=== PATIENT | female | born 1975 | race Caucasian/White ===

== ENCOUNTER 2019-03-03 19:49 | Emergency (ER) | payer OTHER ==
[2019-03-03] MEDS ORDERED: KETOROLAC 30 MG/ML INJ ONE (20:30)
[2019-03-03] MEDS ORDERED: NA CHLORIDE 0.9% 1,000 ML ONE (20:31)
[2019-03-03 20:47] LABS: Absolute Lymphocytes (CBC) 2.3 K/uL (0.7-4.9); Absolute Monocytes 0.7 K/uL (0.1-1.3); Absolute Neutrophil 5.1 K/uL (1.8-8.0); Basophils % 0.9 % (0-1.3); Eosinophils % 4.9 % (0-4.4); Hematocrit 35.1 % (36.0-45.0); Lymphocytes % 26.9 % (15.3-44.8); MPV 7.6 fL (7.6-11.3); Monocytes % 7.7 % (3.3-12.3); RBC Red Blood Cell Count 3.78 M/uL (3.86-4.86)
[2019-03-03 20:48] LABS: Protime INR 0.94
[2019-03-03 21:05] LABS: ALT/SGPT 19 U/L (12-78); AST/SGOT 14 U/L (15-37); Albumin 3.9 g/dL (3.4-5.0); Alkaline Phosphatase 102 U/L (45-117); BUN Blood Urea Nitrogen 17 mg/dL (7-18); Bicarbonate 24 mmol/L (21-32); Bilirubin Direct < 0.1 mg/dL (0-0.2); Bilirubin Total 0.2 mg/dL (0.2-1.0); Glucose Level 110 mg/dL (74-106); Magnesium 2.3 mg/dL (1.8-2.4); Potassium 3.8 mmol/L (3.5-5.1); Protein, Total 7.4 g/dL (6.4-8.2); Sodium Level 143 mmol/L (136-145); Troponin (Emerg Dept Use Only) < 0.02 ng/mL (0.0-0.045)
[2019-03-03 21:21] LABS: Urine Bacteria <20 /HPF (<20); Urine Culture Reflex Order NOT NEEDED; Urine RBC NONE SEEN /HPF (NONE SEEN)
[2019-03-03 21:22] LABS: Urine Specific Gravity 1.015 (1.005-1.030)
[2019-03-03 21:23] LABS: Urine Blood NEGATIVE (NEG); Urine Glucose NEGATIVE (NEG); Urine Protein NEGATIVE (NEG); Urine Specific Gravity 1.015 (1.005-1.030); Urine pH 7.5 (5.0-7.0)
[2019-03-03 21:45] LABS: Barbiturates NEGATIVE (NEGATIVE); Benzodiazepines NEGATIVE (NEGATIVE); Cocaine NEGATIVE (NEGATIVE); METHAMPHETAM NEGATIVE (NEGATIVE); Methadone NEGATIVE (NEGATIVE); Opiates POSITIVE (NEGATIVE); Phencyclidine NEGATIVE (NEGATIVE); THC Cannibis NEGATIVE (NEGATIVE)
--- NOTE | 2019-03-03 22:31 | EDPHYS ---
Physician Documentation [facility] Name: Brandee Marroquin Age: 43 yrs Sex: Female : 1975 Arrival Date: 03/03/2019 Time: 19:50 Bed 6 Private MD: ANTONI Physician Alejandro Mills HPI: 03/03 20:14 This 43 yrs old Female presents to ER via Ambulatory with complaints of cp General Weakness, Pain All Over. 20:15 "pain all over" and generalized weakness. Onset: The symptoms/episode began/occurred cp today. Severity of symptoms: in the emergency department the symptoms are unchanged despite home interventions. 20:15 The patient has been recently seen by a physician: the patient's primary care provider, cp 3 week(s) ago, diagnosed with ovarian cyst and uterine tumor. 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 - Social history:: Smoking status: Patient/guardian denies using tobacco. - Ebola Screening: : No symptoms or risks identified at this time. ROS: 20:15 Constitutional: Negative for body aches, chills, fever, poor PO intake. cp 20:15 Eyes: Negative for injury, pain, redness, and discharge. cp 20:15 ENT: Negative for drainage from ear(s), ear pain, sore throat, difficulty swallowing, difficulty handling secretions. 20:15 Cardiovascular: Negative for chest pain, palpitations. 20:15 Respiratory: Negative for cough, orthopnea, shortness of breath, wheezing. 20:15 Abdomen/GI: Positive for abdominal pain, of the right lower quadrant and left lower quadrant, Negative for nausea, vomiting, and diarrhea, constipation, anorexia, black/tarry stool, rectal bleeding. 20:15 Back: Negative for pain at rest, pain with movement. 20:15 : Negative for urinary symptoms, vaginal bleeding, vaginal discharge. 20:15 Skin: Negative for cellulitis, rash. 20:15 Neuro: Positive for general weakness, Negative for altered mental status, dizziness, headache, numbness, tingling. 20:15 All other systems are negative. Exam: 20:35 Constitutional: The patient appears in no acute distress, alert, awake, cp non-diaphoretic, non-toxic, well developed, well nourished. 20:35 Head/Face: Normocephalic, atraumatic. cp 20:35 Eyes: Periorbital structures: appear normal, Conjunctiva: normal, no exudate, no injection, Sclera: no appreciated abnormality, Lids and lashes: appear normal, bilaterally. 20:35 ENT: External ear(s): are unremarkable, Ear canal(s): are normal, clear, TM's: bulging, is not appreciated, bilaterally, dullness, bilaterally, erythema, is not appreciated, bilaterally, Nose: is normal, Mouth: Lips: moist, Oral mucosa: pink and intact, moist, Posterior pharynx: Airway: no evidence of obstruction, patent, Tonsils: are normal in appearance, swelling, is not appreciated, erythema, is not appreciated, exudate, is not appreciated. 20:35 Neck: ROM/movement: is normal, is supple, no range of motions limitations, no meningismus, no nuchal rigidity, Lymph nodes: no appreciated lymphadenopathy. 20:35 Chest/axilla: Inspection: normal, Palpation: is normal, no crepitus, no tenderness. 20:35 Cardiovascular: Rate: normal, Rhythm: regular, Heart sounds: murmur, not appreciated, Edema: is not appreciated, JVD: is not appreciated. 20:35 Respiratory: the patient does not display signs of respiratory distress, Respirations: normal, no use of accessory muscles, no retractions, no splinting, no tachypnea, labored breathing, is not present, Breath sounds: are clear throughout, no decreased breath sounds, no stridor, no wheezing. 20:35 Abdomen/GI: Inspection: abdomen appears normal, Bowel sounds: active, all quadrants, Palpation: soft, in all quadrants, mild abdominal tenderness, in the right lower quadrant and left lower quadrant, rebound tenderness, is not appreciated, involuntary guarding, is not appreciated. 20:35 Back: pain, that is moderate, ROM is painful, with all movement. 20:35 Skin: cellulitis, is not appreciated, no rash present. 20:35 Neuro: Orientation: to person, place \\T\\ time. Mentation: is normal, Cerebellar function: is grossly normal, Motor: moves all fours, strength is normal, Sensation: is normal. 21:03 ECG was reviewed by the Attending Physician. cp Vital Signs: 19:57 BP 113 / 86; Pulse 92; Resp 18; Temp 98.2; Pulse Ox 98% on R/A; Weight 65.77 kg; Height la1 5 ft. 2 in. (157.48 cm); Pain 6/10; 21:55 BP 107 / 74; Pulse 93; Resp 18; Pulse Ox 100% on R/A; mg2 19:57 Body Mass Index 26.52 (65.77 kg, 157.48 cm) la1 MDM: 19:59 Patient medically screened. cp 20:30 Differential Diagnosis sepsis, flu, UTI, chronic pain, pyelonephritis, . cp 22:30 Data reviewed: vital signs, nurses notes, lab test result(s), EKG, radiologic studies, cp ultrasound. 22:30 Test interpretation: by ED physician or midlevel provider: ECG. cp 22:30 Counseling: I had a detailed discussion with the patient and/or guardian regarding: the cp historical points, exam findings, and any diagnostic results supporting the discharge/admit diagnosis, lab results, radiology results, the need for outpatient follow up, a family practitioner, an OB/Gyne specialist, to return to the emergency department if symptoms worsen or persist or if there are any questions or concerns that arise at home. 22:30 Response to treatment: the patient's symptoms have markedly improved after treatment, cp and as a result, I will discharge patient. ED course: VSS. Symptoms improved with treatment. Will discharge to home for continued monitoring. 03/03 20:13 Order name: Urine Microscopic Only; Complete Time: 22:00 cp 03/03 20:13 Order name: Basic Metabolic Panel; Complete Time: 21:07 cp 03/03 21:07 Interpretation: Normal except: CL 110; GLUC 110; GFR 60. cp 03/03 20:13 Order name: CBC with Diff; Complete Time: 21:07 cp 03/03 22:01 Interpretation: Normal except: RBC 3.78; HCT 35.1; EOSINOPHIL % 4.9. cp 03/03 20:13 Order name: LFT's; Complete Time: 21:07 cp 03/03 20:13 Order name: Magnesium; Complete Time: 21:07 cp 03/03 20:13 Order name: PT-INR; Complete Time: 21:07 cp 03/03 20:13 Order name: Troponin (emerg Dept Use Only); Complete Time: 21:07 cp 03/03 20:13 Order name: Influenza Screen (a \\T\\ B); Complete Time: 22:00 cp 03/03 20:13 Order name: UDS; Complete Time: 22:00 cp 03/03 22:00 Interpretation: Normal except: OPI POSITIVE. cp 03/03 21:07 Order name: Urine Dipstick--Ancillary (enter results); Complete Time: 22:00 ar5 03/03 21:08 Order name: Urine --Ancillary (enter results); Complete Time: 22:00 ar5 03/03 21:09 Order name: US Pelvis Complete cp 03/03 20:13 Order name: Urine Dipstick-Ancillary (obtain specimen); Complete Time: 20:57 cp 03/03 20:13 Order name: Urine Test (obtain specimen); Complete Time: 20:57 cp 03/03 20:13 Order name: EKG; Complete Time: 20:14 cp 03/03 20:13 Order name: Cardiac monitoring; Complete Time: 20:42 cp 03/03 20:13 Order name: EKG - Nurse/Tech; Complete Time: 20:56 cp 03/03 20:13 Order name: IV Saline Lock; Complete Time: 20:43 cp 03/03 20:13 Order name: Labs collected and sent; Complete Time: 20:43 cp 03/03 20:13 Order name: O2 Per Protocol; Complete Time: 20:43 cp 03/03 20:13 Order name: O2 Sat Monitoring; Complete Time: 20:43 cp EC:03 Rate is 85 beats/min. Rhythm is regular. OR interval is normal. QRS interval is normal. cp QT interval is normal. Interpreted by me. Reviewed by me. Administered Medications: 20:42 Drug: NS 0.9% 1000 ml Route: IV; Rate: 1 bolus; Site: right antecubital; mg2 22:52 Follow up: Response: No adverse reaction; IV Status: Completed infusion mg2 20:42 Drug: TORadol - Ketorolac 15 mg Route: IVP; Site: right antecubital; mg2 22:51 Follow up: Response: No adverse reaction; Marked relief of symptoms mg2 Disposition: 03/03/19 22:30 Discharged to Home. Impression: Weakness - generalized, Acute pain, not elsewhere classified - generalized, Other ovarian cysts. - Condition is Stable. - Discharge Instructions: Ovarian Cyst, Pain Without a Known Cause, Weakness. - Prescriptions for Cyclobenzaprine 10 mg Oral Tablet - take 1 tablet by ORAL route every 8 hours As needed no driving while taking medication; 15 tablet. Diclofenac Sodium 75 mg Oral Tablet, Delayed Release (E.C.) - take 1 tablet by ORAL route 2 times per day; 20 tablet. - Medication Reconciliation Form, Thank You Letter, Antibiotic Education, Prescription Opioid Use, Work release form, Family Work Release form. - Follow up: Private Physician; When: 2 - 3 days; Reason: Recheck today's complaints. - Problem is new. - Symptoms have improved. Addendum: 03/05/2019 11:15 Co-signature as Attending Physician, Alejandro Mills MD I agree with the assessment and c mae plan of care. Signatures: Dispatcher [employer] EDMA Alejandro Mills MD MD cha Attema, Lee, RN RN la1 Alejandro Dominguez PA PA Miko Sofia RN RN mg2 Corrections: (The following items were deleted from the chart) 03/03 22:01 21:08 Normal except: RBC 3.78; HCT 35.1. cp cp 22:53 22:30 03/03/2019 22:30 Discharged to Home. Impression: Weakness - generalized; Acute mg2 pain, not elsewhere classified - generalized; Other ovarian cysts. Condition is Stable. Forms are Work release form, Family Work Release, Medication Reconciliation Form, Thank You Letter, Antibiotic Education, Prescription Opioid Use. Follow up: Private Physician; When: 2 - 3 days; Reason: Recheck today's complaints. Problem is new. Symptoms have improved. cp
--- NOTE | 2019-03-03 22:31 | ER ---
Nurse's Notes [facility] Name: Brandee Marroquin Age: 43 yrs Sex: Female : 1975 Arrival Date: 03/03/2019 Time: 19:50 Bed 6 Private MD: Diagnosis: Weakness-generalized;Acute pain, not elsewhere classified-generalized;Other ovarian cysts Presentation: 03/03 19:55 Presenting complaint: Patient states: About three weeks ago seen at PCP and then three la1 days later we had a CT at [facility] and they told her she had a tumor. Today I started having pain all over . No ill contacts. Pt tolerating PO. Transition of care: patient was not received from another setting of care. Onset of symptoms was March 03, 2019. Risk Assessment: Do you want to hurt yourself or someone else? Patient reports no desire to harm self or others. Initial Sepsis Screen: Does the patient meet any 2 criteria? No. Patient's initial sepsis screen is negative. Does the patient have a suspected source of infection? No. Patient's initial sepsis screen is negative. Care prior to arrival: None. 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 - Social history:: Smoking status: Patient/guardian denies using tobacco. - Ebola Screening: : No symptoms or risks identified at this time. Screenin:24 Abuse screen: Denies threats or abuse. Denies injuries from another. Nutritional mg2 screening: No deficits noted. Tuberculosis screening: No symptoms or risk factors identified. Fall Risk IV access (20 points). Assessment: 20:25 General: Appears in no apparent distress. comfortable, Behavior is calm, cooperative. mg2 Pain: Complains of pain in whole body Pain does not radiate. Pain currently is 5 out of 10 on a pain scale. Quality of pain is described as aching, Pain began gradually. Neuro: Level of Consciousness is awake, alert, obeys commands, Oriented to person, place, time, situation. Neuro: Reports weakness in wjole body. Cardiovascular: Capillary refill < 3 seconds Patient's skin is warm and dry. Respiratory: Airway is patent Respiratory effort is even, unlabored, Respiratory pattern is regular, symmetrical. GI: No signs and/or symptoms were reported involving the gastrointestinal system. : No signs and/or symptoms were reported regarding the genitourinary system. EENT: No signs and/or symptoms were reported regarding the EENT system. Derm: Skin is intact, is healthy with good turgor, Skin is pink, warm \T\ dry. normal. Musculoskeletal: Circulation, motion, and sensation intact. Capillary refill < 3 seconds. Vital Signs: 19:57 BP 113 / 86; Pulse 92; Resp 18; Temp 98.2; Pulse Ox 98% on R/A; Weight 65.77 kg; Height la1 5 ft. 2 in. (157.48 cm); Pain 6/10; 21:55 BP 107 / 74; Pulse 93; Resp 18; Pulse Ox 100% on R/A; mg2 19:57 Body Mass Index 26.52 (65.77 kg, 157.48 cm) la1 ED Course: 19:50 Patient arrived in ED. am2 19:57 Triage completed. la1 19:57 Arm band placed on left wrist. la1 19:59 Alejandro Dominguez PA is PHCP. cp 19:59 Alejandro Mills MD is Attending Physician. cp 20:06 Miko Rausch, MARY is Primary Nurse. mg2 20:27 Patient has correct armband on for positive identification. Pulse ox on. NIBP on. Door mg2 closed. Warm blanket given. 20:43 No provider procedures requiring assistance completed. Inserted saline lock: 20 gauge mg2 in right antecubital area, using aseptic technique. Blood collected. ANTONI Galvez Tech. 22:07 Ultrasound completed. Patient tolerated well. sg3 22:08 US Pelvis Complete In Process Unspecified. EDMS 22:52 IV discontinued, intact, bleeding controlled, No redness/swelling at site. Pressure mg2 dressing applied. Administered Medications: 20:42 Drug: NS 0.9% 1000 ml Route: IV; Rate: 1 bolus; Site: right antecubital; mg2 22:52 Follow up: Response: No adverse reaction; IV Status: Completed infusion mg2 20:42 Drug: TORadol - Ketorolac 15 mg Route: IVP; Site: right antecubital; mg2 22:51 Follow up: Response: No adverse reaction; Marked relief of symptoms mg2 Outcome: 22:30 Discharge ordered by . diana 22:52 Discharged to home ambulatory, with family. mg2 22:52 Condition: stable 22:52 Discharge instructions given to patient, family, Instructed on discharge instructions, follow up and referral plans. medication usage, Demonstrated understanding of instructions, follow-up care, medications, Prescriptions given X 2. 22:53 Patient left the ED. mg2 Signatures: Dispatcher [employer] EDMS Varinder Zelaya RN RN la1 Alejandro Dominguez PA PA cp Moreno, Amanda am2 Ashley Minor sg3 Miko Rausch RN RN mg2 Corrections: (The following items were deleted from the chart) 21:56 21:55 Pulse 93bpm; Resp 18bpm; Pulse Ox 100% RA; mg2 mg2
--- NOTE | 2019-03-03 23:06 | RAD REPORT ---
EXAM DESCRIPTION: US - Pelvis Complete - 03/03/2019 10:07 pm CLINICAL HISTORY: lower abdomen pain Pelvic pain. COMPARISON: No comparisons FINDINGS: The uterus is mildly heterogenous but otherwise normal in size and shape. The uterus measu res 8.6 x 5.2 x 4.3 cm. The endometrial stripe measures 6 mm, normal. Both ovaries are normal in size, shape and echotexture. The right ovary measures 2.0 x 1.9 x 1.3 cm. The left ovary measures 2.2 x 2.0 x 1.9 cm. No ovarian or parovarian lesions. No adnexal masses. Normal Doppler blood flow was demonstrated to both ovaries. No significant pelvic ascites. IMPRESSION: No acute finding demonstrated.
--- NOTE | 2019-03-04 07:06 | EKG ---
Test Date: 2019-03-03 Test Time: 20:51:23 Talent Development Analyst: SVEN MEASUREMENT RESULTS: Intervals: Rate: 85 [place]: 158 QRSD: 84 QT: 380 QTc: 452 [place]: P: 48 [place]: 158 QRS: 46 T: 49 INTERPRETIVE STATEMENTS: Normal sinus rhythm Normal ECG No previous ECG available for comparison Electronically Signed On 03-04-19 07:05:15 CDT by Baltazar Navas
== END 2019-03-03 22:53 | disposition home or self-care (01) ==
LOC: ER 19:49
DX: G89.11 Acute pain due to trauma (principal); N83.299 Other ovarian cyst, unspecified side; F41.9 Anxiety disorder, unspecified; F32.9 Major depressive disorder, single episode, unspecified
CPT/HCPCS: 36415; 76856; 80048; 80076; 80307; 81003; 81015; 81025; 83735; 84484; 85025; 85610; 87804; 93005; J7030

== ENCOUNTER 2024-07-07 14:58 | Emergency (ER) | payer OTHER, SELFPAY ==
--- OUTSIDE RECORDS SUMMARY | 2024-07-07 15:03 | XMS REPORT | Continuity of Care Document ---
Demographics Address [address] [place] [address] Mobile Phone Email Address NONE Preferred Language Romansh Marital Status Unknown Orthodoxy Affiliation Unknown Race Unknown Additional Race(s) White Ethnic Group or Author Name Unknown Address [address] [place] [address] [facility] thconnect Address [address] [facility] 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 Name Role Phone Conor Millan NP Primary Care Physician [phone] SONYA BLACKWELL Attending Clinician Unavailable LYNN NAVA Attending Clinician Unavailable LYNN NAVA Attending Clinician Unavailable Lynn Nava MD Attending Clinician [phone] RATNA MCKEON Attending Clinician Unavailable CONOR MILLAN Attending Clinician Unavailab CONOR Patrick Attending Clinician Unavailab HUSAM Granger Attending Clinician Unavailable Husam Kirk MD Attending Clinician [phone] ABDON BUITRAGO Attending Clinician UnavailAbdon Fletcher Attending Clinician [phone] Rosalva KAYE Attending Clinician Unavailable Mikki PAC, Rosalva Roxane Attending Clinician + [phone] AUDRA WELLS Attending Clinician Unavailgiselle Wells MD, Audra Reeder Attending Clinician + [phone] HENRIQUE BIANCHI Attending Clinician Unavailable Tash SKIP HOIST ENGINEER, Henrique T Attending Clinician +[phone] GRAEME FLORES Attending Clinician Unavaila avila Flores MD, Graeme Flores Attending Clinician [phone] Tarah Cui MD Attending Clinician + [phone] ANTHONY MARTELL Attending Clinician Unavailable Benoit PAC, Maryjo S Attending Clinician [phone] WEN NG Attending Clinician UnavailTARAH Curiel Attending Clinician Unavailable Hernandez AGNRosio, Wen Attending Clinician [phone] HUSAM SMITH Attending Clinician Unavail able Doctor Unassigned, [facility] Attending Clinician U sushant Neal RN, Jennifer Attending Clinician Unavailab zara Smith WHCNPHusam Attending Clinician + [place] SKIP HOIST ENGINEER, Blaine B Attending Clinician + [phone] Kiana HERNANDEZ, Cesilia Attending Clinician Unavailable Herbert Garcia Attending Clinician [phone] HERBERT BIRD Attending Clinician Unavailable Anthony Martell MD Attending Clinician Unavaila ble Pob, [facility] Main Attending Clinician Unavailabl gustavo Archer SKIP HOIST ENGINEER, Irina A Attending Clinician + [phone] LIBBY FISHER Attending Clinician Unavaila LIBBY Bajwa Attending Clinician Unavaila ble 1, [facility] Bed Attending Clinician Unavail able Libby Fisher MD Attending Clinician + [phone] Rishi ENRIQUE, Sonya Attending Clinician + [phone] Visit, [facility] Nurse Attending Clinician Unava ilable Only, [facility] Test Attending Clinician Unavailable 2, [facility] Attending Clinician Unavailable Diogo Ogden MD Attending Clinician [phone] Allyssa AZAR, Roes Goldstein Attending Clinician Unavailab zara Amaro MD, Martín W Attending Clinician [phone] IRINA ARCHER Attending Clinician Unavailable Jose C SKIP HOIST ENGINEER, Eri Attending Clinician +[phone] [facility] Attending Clinician Unavailab zara Villeda MD, Kusum Attending Clinician [phone] KUSUM VILLEDA Attending Clinician Unavailable Rocael ENRIQUE, Jerad L Attending Clinician [phone] [facility] Attending Clinician Unavailable MARTÍN AMARO Attending Clinician Unavailable Saud ENRIQUE, Bryant Attending Clinician + [phone] BRYANT DAWN Attending Clinician Unavailgiselle Goodman MD, Terence Attending Clinician +[phone] Debbi HERNANDEZ, Jaskaran Attending Clinician [phone] JASKARAN WERNER Attending Clinician Unavailable TERENCE GOODMAN Attending Clinician Unavailable Chirag ENRIQUE, Yamilka Maguire Attending Clinician +[phone] Nurse, [facility] Surgery Attending Clinician Harmeet Prather RN, Maris Morgan Attending Clinician Unavail able Jose Eduardo ENRIQUE, Pankaj Ortega Attending Clinician Domingo RN, Alejandro Attending Clinician Unavailab zara Vela SKIP HOIST ENGINEER, Attila Banegas Attending Clinician [phone] Cj SKIP HOIST ENGINEER, Marina R Attending Clinician + [phone] Harvey SKIP HOIST ENGINEER, Lang Hernandez Attending Clinician [phone] LANG FAUSTIN Attending Clinician Unavailabl gustavo Arzate SKIP HOIST ENGINEER, Bhavin Graham Attending Clinician [phone] DAVID AVILA III Attending Clinician Unavaila SONYA Demarco Admitting Clinician Unavailable HUSAM KIRK Admitting Clinician Unavailable ABDON BUITRAGO Admitting Clinician Unavaila HENRIQUE Veliz Admitting Clinician Unavailable Pankaj Whitt MD Admitting Clinician LISA HANNA Admitting Clinician Unavailable Payers Payer Name Policy Type Policy Number Effective Date Expirati on Date Source [facility] [id number] 2018 00:00:00 [employer] [id number] 2024 00:00:00 [facility] [id number] 00:00:00 Problems Condition Name Condition Details Condition Category Status Onset Date Resolution Date Last Treatment Date Treating Clinician Comments Source Bronchitis Bronchitis Disease Active 07-08 00:00: 00 [facility] Vomiting without nausea, not intractabl e Vomiting without nausea, not intractabl e Disease Active 07-08 00:00: 00 [facility] Productive cough Productive cough Disease Active 07-08 00:00: 00 [facility] Vomiting without nausea, not intractabl e Vomiting without nausea, not intractabl e Disease Active 07-08 00:00: 00 [facility] Left flank pain Left flank pain Disease Active 12-15 00:00: 00 [facility] Hypercalci uria Hypercalci uria Disease Active 12-15 00:00: 00 [facility] Anemia, unspecifie d type Anemia, unspecifie d type Disease Active 2019-11 00:00: 00 [facility] Gastroesop hageal reflux disease without esophagiti s Gastroesop hageal reflux disease without esophagiti s Disease Active 2019-11 00:00: 00 [facility] Migraine equivalent syndrome Migraine equivalent syndrome Disease Active 2019-11 00:00: 00 [facility] Weakness Weakness Disease Active 2019-11 00:00: 00 [facility] Orthostasi s Orthostasi s Disease Active 2019-11 00:00: 00 [facility] Nonintract able headache, unspecifie d chronicity pattern, unspecifie d headache type Nonintract able headache, unspecifie d chronicity pattern, unspecifie d headache type Disease Active 2019-11 00:00: 00 [facility] Need for pneumococc al vaccinatio n Need for pneumococc al vaccinatio n Disease Active 2019-11 00:00: 00 [facility] Need for pneumococc al vaccinatio n Need for pneumococc al vaccinatio n Disease Active 2019-11 1-11 00:00: 00 [facility] Left nephrolith iasis Left nephrolith iasis Disease Active 908 00:00: 00 [facility] Health maintenanc e examinatio n Health maintenanc e examinatio n Disease Active 8 00:00: 00 [facility] Acute midline low back pain without sciatica Acute midline low back pain without sciatica Disease Active 8 00:00: 00 [facility] Dyspareuni a in female Dyspareuni a in female Disease Active 15 00:00: 00 [facility] S/P laparoscop ic cholecyste ctomy S/P laparoscop ic cholecyste ctomy Disease Active 08-03 00:00: 00 [facility] Calculus of gallbladde r without cholecysti tis without obstructio n Calculus of gallbladde r without cholecysti tis without obstructio n Disease Active 08-01 00:00: 00 Overview: Formattin g of this note might be different from the original. Added automatic ally from request for surgery [id number] [facility] Urinary tract infection Urinary tract infection Disease Active 07-31 00:00: 00 [facility] Abdominal pain Abdominal pain Disease Active 07-31 00:00: 00 [facility] Calculus of gallbladde r Calculus of gallbladde r Disease Active 07-31 00:00: 00 [facility] Menorrhagi a Menorrhagi a Disease Active 05-26 00:00: 00 [facility] Well woman exam Well woman exam Disease Active 03-09 00:00: 00 [facility] Depression (emotion) Depression (emotion) Disease Active 03-09 00:00: 00 [facility] Encounter for other general counseling or advice on contracept ion Encounter for other general counseling or advice on contracept ion Disease Active 4-07 00:00: 00 [facility] Pelvic pain Pelvic pain Disease Active 02-10 00:00: 00 [facility] Overweight Overweight Disease Active 03-27 00:00: 00 Overview: Formattin g of this note might be different from the original. ICD10 Diagnosis Term Bun Panner Utility [facility] Tubal ligation status Tubal ligation status Disease Active 03-27 00:00: 00 [facility] BV (bacterial vaginosis) BV (bacterial vaginosis) Disease Resolve d 03-27 00:00: 00 2016-03-30 00:00:00 2016-03-30 12:23:50 [facility] Breast discharge Breast discharge Disease Resolve d 03-27 00:00: 00 2016-03-30 00:00:00 2016-03-30 12:23:54 [facility] Allergies, Adverse Reactions, Alerts Allergy Name Allergy Type Status Severity Reaction(s) Onset Date Inactive Date Treating Clinician Comments Source Egg Drug Allergy Active Diarrhea 07-15 00:00: 00 [facility] EGG DRUG INGREDI Active Low Diarrhea 07-15 00:00: 00 [facility] Egg Drug Intolera nce Active Diarrhea 07-15 00:00: 00 [facility] Social History Social Habit Start Date Stop Date Quantity Comments Source Gender identity [facility] Sexual orientation [facility] History SDOH Alcohol Frequency [facility] History SDOH Alcohol Std Drinks [facility] History SDOH Alcohol Binge [facility] Alcoholic beverage intake 2024-07-06 00:00:00 2024-07-06 00:00:00 Current drinker of alcohol (finding) [facility] Alcohol intake 2023-10-11 00:00:00 2023-10-11 00:00:00 Current drinker of alcohol (finding) [facility] Exposure to SARS-CoV-2 (event) 2023-03-12 00:00:00 2023-03-22 16:42:00 Not sure [facility] Tobacco use and exposure 2022-06-15 00:00:00 2022-06-15 00:00:00 Smokeless tobacco non-user [facility] History of Social function 2022-06-15 00:00:00 2022-06-15 00:00:00 [facility] Alcohol Comment 2017-03-09 00:00:00 2017-03-09 00:00:00 social [facility] Sex assigned at 1975 00:00:00 1975 00:00:00 [facility] Smoking Status Start Date Stop Date Source Never smoked tobacco [facility] Medications Ordered Medication Name Filled Medication Name Start Date Stop Date Current Medication? Ordering Clinician Indication Dosage Frequency Signature (SIG) Comments Components Source HYDROcodone -acetaminop hen (NORCO) 10-325 mg tablet 1 tablet 07-07 09:00: 00 07-07 08:27 :00 No 1{tbl} 1 tablet, Oral, ONCE NOW, 1 dose, On Mon07/07/24 at 0400, Routine [facility] ondansetron (ZOFRAN (PF)) injection 4 mg 07-07 08:15: 00 07-07 08:26 :00 No 4mg 4 mg, Slow IV Push, ONCE, 1 dose, On Mon07/07/24 at 0315, ALEXA [facility] iopamidol (ISOVUE 370-500 mL) injection 70 mL 07-07 07:45: 00 07-07 07:45 :00 No [id number] 70mL 70 mL, Intravenou s, ONCE, 1 dose, On Mon07/07/24 at 0245, Routine [facility] ketorolac (TORADOL) injection 30 mg 07-07 06:30: 00 07-07 05:26 :00 No 30mg 30 mg, Slow IV Push, ONCE, 1 dose, On Mon07/07/24 at 0130, Routine [facility] FENTanyl (PF) (SUBLIMAZE) injection 25 mcg 07-07 06:00: 00 07-07 06:07 :00 No 25ug 25 mcg, Slow IV Push, ONCE, 1 dose, On Mon07/07/24 at 0100, STAT [facility] diphenhydrA MINE:lidoca ine 2% viscous:maa lox 1:1:1 (FIRST-MOUT HWASH BLM) oral suspension 15 mL 07-07 05:30: 00 07-07 05:26 :00 No 15mL 15 mL, Oral, ONCE, 1 dose, On Mon07/07/24 at 0030, Routine [facility] ondansetron (ZOFRAN (PF)) injection 4 mg 07-07 05:30: 00 07-07 05:26 :00 No 4mg 4 mg, Slow IV Push, ONCE, 1 dose, On Mon07/07/24 at 0030, [facility] proMETHazin e 25 mg tablet 07-07 00:00: 00 Yes [id number] 25mg Take 1 tablet by mouth every 6 (six) hours as needed for Nausea and Vomiting (N/V) or N/V unresponsi ve to Ondansetro nAndrzej [facility] ibuprofen (IBU) tablet 600 mg 07-27 01:30: 00 07-27 01:46 :00 No 600mg 600 mg, Oral, ONCE, 1 dose, On Mon07/26/23 at 2030, [facility] HYDROcodone -acetaminop hen (NORCO 5) 5-325 mg tablet 1 tablet 07-27 01:30: 00 07-27 01:46 :00 No 1{tbl} 1 tablet, Oral, ONCE, 1 dose, On Mon07/26/23 at 2030, [facility] diphenhydrA MINE (BENADRYL) tablet 25 mg 05-17 06:15: 00 05-17 06:13 :00 No 25mg 25 mg, Oral, ONCE, 1 dose, On Mon05/17/23 at 0115, [facility] predniSONE (DELTASONE) tablet 20 mg 05-17 06:15: 00 05-17 06:12 :00 No 20mg 20 mg, Oral, ONCE, 1 dose, On Mon05/17/23 at 0115, [facility] predniSONE 20 mg tablet -12 00:00: 00 Yes [id number] TAKE ONE TABLET BY MOUTH TWICE A DAY [facility] aspirin tablet 325 mg 03-22 23:00: 00 03-22 22:17 :00 No 325mg 325 mg, Oral, ONCE, 1 dose, On Mon03/22/23 at 1800, [facility] acetaminoph en (TYLENOL) tablet 1,000 mg 03-22 23:00: 00 03-22 22:17 :00 No 1000mg 1,000 mg, Oral, ONCE, 1 dose, On Mon03/22/23 at 1800, [facility] amoxicillin -clavulanat e (AUGMENTIN) 875-125 mg per tablet 1 tablet 12-17 06:00: 00 12-17 05:49 :00 No 1{tbl} 1 tablet, Oral, ONCE, 1 dose, On Mon12/17/22 at 0000, Routine
Reason for Anti-Infec tive: Documented Infection< br>Documen sven Infection Site: Skin / Soft Tissue
Duration of Therapy: 10 days [facility] ibuprofen (IBU) tablet 600 mg 12-17 05:15: 00 12-17 05:49 :00 No 600mg 600 mg, Oral, ONCE, 1 dose, On Mon12/16/22 at 2315, [facility] amoxicillin -clavulanat e 875-125 mg per tablet 12-16 00:00: 00 Yes [id number] 1{tbl} Take 1 tablet by mouth every 12 (twelve) hours. [facility] ibuprofen 600 mg tablet 12-16 00:00: 00 Yes [id number] 600mg Take 1 tablet by mouth every 6 (six) hours as needed for Pain (scale 4-6). [facility] proMETHazin e (PHENERGAN) 12.5 mg in NaCl 0.9% (NS) 50 mL IV piggyback 2021-11 22:15: 00 09-18 22:24 :00 No 12.5mg 12.5 mg, IV Piggyback, ONCE, 1 dose, On Mon09/18/22 at 1615, [facility] NaCl 0.9% (NS) bolus infusion 1,000 mL 2021-11 20:30: 00 09-18 21:54 :00 No 1000mL at 999 mL/hr, 1,000 mL, IV Infusion, ONCE, 1 dose, On Mon09/18/22 at 1430, [facility] meclizine (TRAVEL-EAS E (MECLIZINE) ) tablet 25 mg 2021-11 19:45: 00 09-18 19:50 :00 No 25mg 25 mg, Oral, ONCE, 1 dose, On Mon09/18/22 at 1345, [facility] proMETHazin e (PHENERGAN) 12.5 mg in NaCl 0.9% (NS) 50 mL IV piggyback 2021-11 19:45: 00 09-18 19:53 :00 No 12.5mg 12.5 mg, IV Piggyback, ONCE, 1 dose, On Mon09/18/22 at 1345, [facility] meclizine 25 mg tablet 2021-11 00:00: 00 Yes [id number] 25mg Take 1 tablet by mouth every 6 (six) hours as needed for Dizziness or Nausea. [facility] proMETHazin e 25 mg tablet 2021-11 00:00: 00 Yes [id number] 25mg Take 1 tablet by mouth every 6 (six) hours as needed (NAUSEA AND/OR DIZZINESS) . [facility] meloxicam 7.5 mg tablet 07-27 00:00: 00 Yes [id number] 7.5mg Take 1 tablet by mouth 2 (two) times daily with meals as needed for Pain (scale 7-10) or Pain (scale 4-6). [facility] cyclobenzap rine 10 mg tablet 07-27 00:00: 00 Yes [id number] 10mg Take 1 tablet by mouth 2 (two) times daily as needed (knee and heel pain). [facility] SERTraline 100 mg tablet 06-15 00:00: 00 Yes [id number] 100mg Take 1 tablet by mouth in the morning. [facility] hydrOXYzine 25 mg tablet 06-15 00:00: 00 Yes [id number] 25mg Take 1 tablet by mouth every 6 (six) hours as needed for Anxiety. [facility] ondansetron 4 mg disintegrat ing tablet 06-11 00:00: 00 Yes [id number] 4mg Take 1 tablet by mouth every 8 (eight) hours as needed for Nausea and Vomiting (N/V). [facility] ibuprofen 800 mg tablet 06-11 00:00: 00 Yes [id number] 800mg Take 1 tablet by mouth in the morning and 1 tablet at noon and 1 tablet in the evening. Take with meals. [facility] ALBUTEROL 2.5 mg /3 mL (0.083 %) nebulizer solution 01-14 00:00: 00 Yes [id number] USE 3 ML IN NEBULIZER EVERY 4 HOURS NEEDED FOR WHEEZING FOR SHORTNESS OF BREATH [facility] tamsulosin 0.4 mg 24 hr capsule 2020-11 00:00: 00 06-15 00:00 :00 No [id number] .4mg Take 1 capsule by mouth at bedtime. [facility] ketorolac 10 mg tablet 2020-11 00:00: 00 06-15 00:00 :00 No [id number] 10mg Take 1 tablet by mouth every 6 (six) hours as needed for Pain (scale 4-6). [facility] ondansetron (ZOFRAN ODT) 4 mg disintegrat ing tablet 2020-11 00:00: 00 06-15 00:00 :00 No [id number] 4mg Take 1 tablet by mouth every 8 (eight) hours as needed for Nausea and Vomiting (N/V). [facility] ciprofloxac in HCl 250 mg tablet 2020-11 00:00: 06-15 00:00 :00 No [id number] 250mg Take 1 tablet by mouth 2 (two) times daily. [facility] acetaminoph en-codeine 300-30 mg tablet 07-08 00:00: 00 06-15 00:00 :00 No [id number] 1{tbl} Take 1-2 tablets by mouth every 6 (six) hours as needed for Pain (scale 7-10). Indication s: acute pain [facility] ipratropium 0.02 % nebulizer solution 07-08 00:00: 00 06-15 00:00 :00 No [id number] .5mg Inhale 2.5 mL every 4 (four) hours as needed for Wheezing or Shortness of Breath. [facility] bromphenira mine-pseudo ephedrine-D M (BROMFED DM) 2-30-10 mg/5 mL syrup 07-08 00:00: 00 06-15 00:00 :00 No [id number] 5mL Take 5 mL by mouth 4 (four) times daily as needed for Cough. [facility] amoxicillin -clavulanat e (AUGMENTIN) 875-125 mg per tablet 07-08 00:00: 00 06-15 00:00 :00 No [id number] 1{tbl} Take 1 tablet by mouth 2 (two) times daily. [facility] 07-08 00:00: 06-15 00:00 :00 No [id number] J40: Brochitis - Dispense # 1 James Respironic s (okay for alternativ e brand) for nebulizer treatment [facility] albuterol 90 mcg/actuati on inhaler 07-02 00:00: 00 Yes [id number] 2{puff} Inhale 2 Puffs every 4 (four) hours as needed for Wheezing or Shortness of Breath. [facility] predniSONE 20 mg tablet 07-02 00:00: 00 06-15 00:00 :00 No [id number] 60mg Take 3 tablets by mouth every morning. [facility] omeprazole 40 mg capsule 03-19 00:00: 00 Yes [id number] 40mg Take 1 capsule by mouth daily. [facility] famotidine 20 mg tablet 03-19 00:00: 00 06-15 00:00 :00 No [id number] 20mg Take 1 tablet by mouth 2 (two) times daily. [facility] tamsulosin (FLOMAX) 0.4 mg 24 hr capsule 03-19 00:00: 00 08-06 00:00 :00 No [id number] .4mg Take 1 capsule by mouth daily. [facility] acetaminoph en (TYLENOL) 325 mg tablet 12-15 00:00: 00 Yes [id number] 650mg Take 2 tablets by mouth every 6 (six) hours as needed for Pain (scale 1-3) or Alternate with ibuprofen for pain scale 4-6. [facility] dicyclomine (BENTYL) 10 mg capsule 12-15 00:00: 00 Yes [id number] 10mg Take 1 capsule by mouth 4 (four) times daily. [facility] acetaminoph en-codeine 300-30 mg tablet 12-15 00:00: 00 07-08 00:00 :00 No [id number] 1{tbl} Take 1-2 tablets by mouth every 6 (six) hours as needed for Pain (scale 7-10). Indication s: acute pain [facility] ibuprofen 800 mg tablet 12-15 00:00: 00 07-08 00:00 :00 No [id number] 800mg Take 1 tablet by mouth every 8 (eight) hours as needed for Pain (scale 4-6). [facility] ibuprofen 800 mg tablet 11-11 00:00: 00 07-08 00:00 :00 No [id number] 800mg Take 1 tablet by mouth every 8 (eight) hours as needed for Pain (scale 4-6). [facility] famotidine 20 mg tablet 2019-11 00:00: 00 03-19 00:00 :00 No [id number] 20mg Take 1 tablet by mouth 2 (two) times daily. [facility] omeprazole 20 mg capsule 2019-11 00:00: 00 03-19 00:00 :00 No [id number] 20mg Take 1 capsule by mouth daily. [facility] medroxyPROG ESTERone (DEPO-PROVE RA) injection 150 mg 07-06 20:45: 00 03-19 18:43 :00 No [id number] 150mg [facility] Immunizations Ordered Immunization Name Filled Immunization Name Date Status Comments Source SARS-COV-2 COVID-19 PFIZER VACCINE 2020-11-25 00:00:00 Completed [facility] SARS-COV-2 COVID-19 PFIZER VACCINE 2020-11-25 00:00:00 Completed [facility] SARS-COV-2 COVID-19 PFIZER VACCINE 2020-11-25 00:00:00 Completed [facility] SARS-COV-2 COVID-19 PFIZER VACCINE 2020-11-25 00:00:00 Completed [facility] SARS-COV-2 COVID-19 PFIZER VACCINE 2020-11-25 00:00:00 Completed [facility] SARS-COV-2 COVID-19 PFIZER VACCINE 2020-11-25 00:00:00 Completed [facility] SARS-COV-2 COVID-19 PFIZER VACCINE 2020-11-25 00:00:00 Completed [facility] Pneumococcal Polysaccharide, PPSV23 (PNEUMOVAX) 2020-09-16 00:00:00 Completed [facility] Pneumococcal Polysaccharide, PPSV23 (PNEUMOVAX) 2020-09-16 00:00:00 Completed [facility] Pneumococcal Polysaccharide, PPSV23 (PNEUMOVAX) 2020-09-16 00:00:00 Completed [facility] Pneumococcal Polysaccharide, PPSV23 (PNEUMOVAX) 2020-09-16 00:00:00 Completed [facility] Pneumococcal Polysaccharide, PPSV23 (PNEUMOVAX) 2020-09-16 00:00:00 Completed [facility] Pneumococcal Polysaccharide, PPSV23 (PNEUMOVAX) 2020-09-16 00:00:00 Completed [facility] Pneumococcal Polysaccharide, PPSV23 (PNEUMOVAX) 2020-09-16 00:00:00 Completed [facility] Influenza High Dose 2020-08-16 00:00:00 Completed [facility] Influenza High Dose 2020-08-16 00:00:00 Completed [facility] Influenza High Dose 2020-08-16 00:00:00 Completed [facility] Influenza High Dose 2020-08-16 00:00:00 Completed [facility] Influenza High Dose 2020-08-16 00:00:00 Completed [facility] Influenza High Dose 2020-08-16 00:00:00 Completed [facility] Influenza High Dose 2020-08-16 00:00:00 Completed [facility] TDAP 2015-03-25 00:00:00 Completed [facility] TDAP 2015-03-25 00:00:00 Completed [facility] TDAP 2015-03-25 00:00:00 Completed [facility] TDAP 2015-03-25 00:00:00 Completed [facility] TDAP 2015-03-25 00:00:00 Completed [facility] TDAP 2015-03-25 00:00:00 Completed [facility] TDAP 2015-03-25 00:00:00 Completed [facility] TDAP Unknown Completed [facility] Influenza High Dose Unknown Completed [facility] Pneumococcal Polysaccharide, PPSV23 (PNEUMOVAX) Unknown Completed [facility] SARS-COV-2 COVID-19 PFIZER VACCINE Unknown Completed [facility] TDAP Unknown Completed [facility] Influenza High Dose Unknown Completed [facility] Pneumococcal Polysaccharide, PPSV23 (PNEUMOVAX) Unknown Completed [facility] SARS-COV-2 COVID-19 PFIZER VACCINE Unknown Completed [facility] TDAP Unknown Completed [facility] Influenza High Dose Unknown Completed [facility] Pneumococcal Polysaccharide, PPSV23 (PNEUMOVAX) Unknown [facility] SARS-COV-2 COVID-19 PFIZER VACCINE Unknown Completed [facility] TDAP Unknown Completed [facility] Influenza High Dose Unknown Completed [facility] Pneumococcal Polysaccharide, PPSV23 (PNEUMOVAX) Unknown Completed [facility] SARS-COV-2 COVID-19 PFIZER VACCINE Unknown Completed [facility] TDAP Unknown Completed [facility] TDAP Unknown Completed [facility] Influenza High Dose Unknown Completed [facility] Pneumococcal Polysaccharide, PPSV23 (PNEUMOVAX) Unknown Completed [facility] SARS-COV-2 COVID-19 PFIZER VACCINE Unknown Completed [facility] TDAP Unknown Completed [facility] Influenza High Dose Unknown Completed [facility] Pneumococcal Polysaccharide, PPSV23 (PNEUMOVAX) Unknown Completed [facility] SARS-COV-2 COVID-19 PFIZER VACCINE Unknown Completed [facility] Vital Signs Vital Name Observation Time Observation Value Comments S ource Heart rate 2024-07-07 08:27:00 68 /min [facility] Body temperature 2024-07-07 08:27:00 36.5 Amy [facility] Respiratory rate 2024-07-07 08:27:00 12 /min [facility] Oxygen saturation in Arterial blood by Pulse oximetry 2024-07-07 08:27:00 96 /min [facility] Systolic blood pressure 2024-07-07 08:00:00 109 mm[Hg] [facility] Diastolic blood pressure 2024-07-07 08:00:00 75 mm[Hg] [facility] Body height 2024-07-07 04:28:00 157.5 cm [facility] Body weight 2024-07-07 04:28:00 69.627 kg [facility] BMI 2024-07-07 04:28:00 28.08 kg/m2 [facility] Systolic blood pressure 2023-10-12 05:08:00 115 mm[Hg] [facility] Diastolic blood pressure 2023-10-12 05:08:00 78 mm[Hg] [facility] Heart rate 2023-10-12 05:08:00 99 /min [facility] Body temperature 2023-10-12 05:08:00 37.39 Amy [facility] Respiratory rate 2023-10-12 05:08:00 20 /min [facility] Body height 2023-10-12 05:08:00 157.5 cm [facility] 2023-10-12 05:08:00 68.176 kg [facility] BMI 2023-10-12 05:08:00 27.49 kg/m2 [facility] Oxygen saturation in Arterial blood by Pulse oximetry 2023-10-12 05:08:00 100 /min [facility] Systolic blood pressure 2023-07-27 00:07:00 113 mm[Hg] [facility] Diastolic blood pressure 2023-07-27 00:07:00 75 mm[Hg] [facility] Heart rate 2023-07-27 00:07:00 102 /min [facility] Body temperature 2023-07-27 00:07:00 37 Amy [facility] Respiratory rate 2023-07-27 00:07:00 16 /min [facility] Body height 2023-07-27 00:07:00 157.5 cm [facility] Body weight 2023-07-27 00:07:00 65.772 kg [facility] BMI 2023-07-27 00:07:00 26.52 kg/m2 [facility] Oxygen saturation in Arterial blood by Pulse oximetry 2023-07-27 00:07:00 98 /min [facility] Systolic blood pressure 2023-05-17 05:26:00 127 mm[Hg] [facility] Diastolic blood pressure 2023-05-17 05:26:00 89 mm[Hg] [facility] Heart rate 2023-05-17 05:26:00 75 /min [facility] Body temperature 2023-05-17 05:26:00 37 Amy [facility] Respiratory rate 2023-05-17 05:26:00 18 /min [facility] Body height 2023-05-17 05:26:00 157.5 cm [facility] Body weight 2023-05-17 05:26:00 68.493 kg [facility] BMI 2023-05-17 05:26:00 27.62 kg/m2 [facility] Oxygen saturation in Arterial blood by Pulse oximetry 2023-05-17 05:26:00 97 /min [facility] Systolic blood pressure 2023-03-22 22:00:00 108 mm[Hg] [facility] Diastolic blood pressure 2023-03-22 22:00:00 66 mm[Hg] [facility] Heart rate 2023-03-22 22:00:00 99 /min [facility] Respiratory rate 2023-03-22 22:00:00 21 /min [facility] Oxygen saturation in Arterial blood by Pulse oximetry 2023-03-22 22:00:00 95 /min [facility] Body temperature 2023-03-22 21:41:00 37 Amy [facility] Body height 2023-03-22 21:41:00 157.5 cm [facility] Body weight 2023-03-22 21:41:00 65.772 kg [facility] BMI 2023-03-22 21:41:00 26.52 kg/m2 [facility] Systolic blood pressure 2022-12-17 04:46:00 120 mm[Hg] [facility] Diastolic blood pressure 2022-12-17 04:46:00 82 mm[Hg] [facility] Heart rate 2022-12-17 04:46:00 91 /min [facility] Body temperature 2022-12-17 04:46:00 36.89 Amy [facility] Respiratory rate 2022-12-17 04:46:00 18 /min [facility] Body height 2022-12-17 04:46:00 157.5 cm [facility] Body weight 2022-12-17 04:46:00 65.772 kg [facility] BMI 2022-12-17 04:46:00 26.52 kg/m2 [facility] Oxygen saturation in Arterial blood by Pulse oximetry 2022-12-17 04:46:00 97 /min [facility] Systolic blood pressure 2022-09-18 23:00:00 113 mm[Hg] [facility] Diastolic blood pressure 2022-09-18 23:00:00 73 mm[Hg] [facility] Heart rate 2022-09-18 23:00:00 68 /min [facility] Respiratory rate 2022-09-18 23:00:00 16 /min [facility] Oxygen saturation in Arterial blood by Pulse oximetry 2022-09-18 23:00:00 98 /min [facility] Body temperature 2022-09-18 18:49:00 36.83 Amy [facility] Body weight 2022-09-18 18:49:00 65.772 kg [facility] BMI 2022-09-18 18:49:00 26.52 kg/m2 [facility] Systolic blood pressure 2022-07-27 18:15:00 113 mm[Hg] [facility] Diastolic blood pressure 2022-07-27 18:15:00 77 mm[Hg] [facility] Heart rate 2022-07-27 18:15:00 79 /min [facility] Body temperature 2022-07-27 18:15:00 35.89 Amy [facility] Respiratory rate 2022-07-27 18:15:00 18 /min [facility] Body height 2022-07-27 18:15:00 157.5 cm [facility] Body weight 2022-07-27 18:15:00 66.316 kg [facility] BMI 2022-07-27 18:15:00 26.74 kg/m2 [facility] Oxygen saturation in Arterial blood by Pulse oximetry 2022-07-27 18:15:00 98 /min [facility] Systolic blood pressure 2022-06-15 18:30:00 117 mm[Hg] [facility] Diastolic blood pressure 2022-06-15 18:30:00 76 mm[Hg] [facility] Heart rate 2022-06-15 18:30:00 72 /min [facility] Body temperature 2022-06-15 18:30:00 36.56 Amy [facility] Respiratory rate 2022-06-15 18:30:00 18 /min [facility] Body height 2022-06-15 18:30:00 157.5 cm [facility] Body weight 2022-06-15 18:30:00 68.493 kg [facility] BMI 2022-06-15 18:30:00 27.62 kg/m2 [facility] Oxygen saturation in Arterial blood by Pulse oximetry 2022-06-15 18:30:00 99 /min [place] [facility] Procedures Procedure Date / Time Performed Performing Clinician Source TROPONIN I 2024-07-07 07:25:00 Lynn Nava [facility] CT CHEST PULMONARY ANGIOGRAM 2024-07-07 06:50:46 Lynn Nava [facility] D-DIMER 2024-07-07 05:25:00 Lynn Nava [facility] LIPASE 2024-07-07 04:58:00 Lynn Nava [facility] TROPONIN I 2024-07-07 04:58:00 Lynn Nava [facility] COMP. METABOLIC PANEL (43578) 2024-07-07 04:58:00 Lynn Nava [facility] CBC WITH DIFF 2024-07-07 04:58:00 Lynn Nava [facility] ASSIGNMENT OF BENEFITS 2023-10-12 06:05:31 Docabdoulaye r Unassigned, [facility] RAPID STREP SCREEN FOR GROUP A 2023-10-12 05:12:00 Ratna Mckeon [facility] RAPID INFLUENZA A/B 2023-10-12 05:12:00 Daysi Mckeon [facility] COVID-19 (ID NOW RAPID TESTING) 2023-10-12 05:12:00 Ratna Mckeon [facility] CONSENT/REFUSAL FOR DIAGNOSIS AND TREATMENT 2023-10-12 04:57:22 Doctor Unassigned, [facility] ASSIGNMENT OF BENEFITS 2023-07-27 01:59:01 Docto r Unassigned, [facility] NOTICE OF PRIVACY PRACTICES 2023-07-26 23:37:34 Doctor Unassigned, [facility] CONSENT/REFUSAL FOR DIAGNOSIS AND TREATMENT 2023-07-26 23:35:24 Doctor Unassigned, [facility] ASSIGNMENT OF BENEFITS 2023-05-17 06:09:20 Docto r Unassigned, [facility] CONSENT/REFUSAL FOR DIAGNOSIS AND TREATMENT 2023-05-17 05:19:18 Doctor Unassigned, [facility] EKG-12 LEAD 2023-03-22 23:22:16 Abdon Buitrago [facility] TROPONIN I 2023-03-22 21:58:00 Abdon Buitrago [facility] CONSENT/REFUSAL FOR DIAGNOSIS AND TREATMENT 2023-03-22 21:46:08 Doctor Unassigned, [facility] CONSENT/REFUSAL FOR DIAGNOSIS AND TREATMENT 2022-12-17 04:37:47 Doctor Unassigned, [facility] COMP. METABOLIC PANEL (52934) 2022-09-18 20:49:00 Audra Wells [facility] CBC WITH DIFF 2022-09-18 19:52:00 Audra Wells [facility] CONSENT/REFUSAL FOR DIAGNOSIS AND TREATMENT 2022-09-18 18:33:51 Doctor Unassigned, [facility] Plan of Care Planned Activity Planned Date Details Comments Source Encounters Start Date/Time End Date/Time Encounter Type Admission Type Attending Clinicians Care Facility Care Department Encounter ID Source 2021-09-07 03:00:13 Emergency [facility] [id number] [facility] 2021-09-06 18:41:24 Emergency [facility] [id number] [facility] 2021-09-06 03:32:49 Outpatient SONYA TO [facility] [id number] [facility] 2021 22:40:21 Emergency [facility] [id number] [facility] 2021 15:33:57 Emergency [facility] [id number] [facility] 2021-09-03 16:29:08 Emergency [facility] [id number] [facility] 2021-09-03 16:26:28 Emergency [facility] [id number] [facility] 2021-09-03 13:13:02 Emergency [facility] [id number] [facility] 2021-09-03 06:30:27 Emergency [facility] [id number] [facility] 2024-07-06 23:32:00 2024-07-07 03:47:00 Emergency X LYNN NAVA WAKILI [facility] ERT [id number] [facility] 2024-07-06 23:32:00 2024-07-07 03:47:00 Emergency Lynn Nava S [facility] 1.2.840.114 350.1.13.10 4.2.7.2.686 [id number] [facility] 2023-10-11 23:15:00 2023-10-12 00:20:00 Emergency RATNA FAIRBANKS [facility] ERT [id number] [facility] 2023-10-11 23:15:00 2023-10-12 00:20:00 Emergency Ratna Mckeon [facility] 1.2.840.114 350.1.13.10 4.2.7.2.686 [id number] [facility] 2023-07-28 13:30:00 2023-07-28 13:30:00 Outpatient R MONTY, CONOR MILLAN, CONOR [facility] [id number] [facility] 2023-07-26 19:09:00 2023-07-26 21:44:00 Emergency X HUSAM KIRK [facility] ERT [id number] [facility] 2023-07-26 19:09:00 2023-07-26 21:44:00 Emergency Husam Kirk [facility] 1.2.840.114 350.1.13.10 4.2.7.2.686 [id number] [facility] 2023-05-17 00:27:00 2023-05-17 01:31:00 Emergency X LYNN NAVA [facility] ERT [id number] [facility] 2023-05-17 00:27:00 2023-05-17 01:31:00 Emergency Lynn Nava S [facility] 1.2.840.114 350.1.13.10 4.2.7.2.686 [id number] [facility] 2023-03-22 16:42:00 2023-03-22 18:28:00 Emergency X IFTIKHAR [facility] ERT [id number] [facility] 2023-03-22 16:42:00 2023-03-22 18:28:00 Emergency HoumaJavy medelliner [facility] 1.2.840.114 350.1.13.10 4.2.7.2.686 [id number] [facility] 2022-12-16 22:44:00 2022-12-16 23:53:00 Emergency X MIKKI Rosalva [facility] ERT [id number] [facility] 2022-12-16 22:44:00 2022-12-16 23:53:00 Emergency Mikki, Rosalva Roxaen [facility] 1.2.840.114 350.1.13.10 4.2.7.2.686 [id number] [facility] 2022-12-06 11:30:00 2022-12-06 11:30:00 Outpatient CONOR HICKS OGECHUKWU [facility] [id number] [facility] 2022-11-25 13:30:00 2022-11-25 13:30:00 Outpatient R CONOR MILLAN OGECHUKWU [facility] [id number] [facility] 2022-09-18 12:49:00 2022-09-18 17:28:00 Emergency X AUDRA WELLS [facility] ERT [id number] [facility] 2022-09-18 12:49:00 2022-09-18 17:28:00 Emergency Audra Wells Lee [facility] 1.2.840.114 350.1.13.10 4.2.7.2.686 [id number] [facility] 2022-07-27 13:00:00 2022-07-27 14:06:12 Outpatient R CONOR MILLAN OGECHUKWU [facility] [id number] [facility] 2022-07-27 13:00:00 2022-07-27 14:06:12 Office Visit Conor Millan [facility] 1.2.840.114 350.1.13.10 4.2.7.2.686 [id number] [facility] 2022-06-15 13:00:00 2022-06-15 14:25:54 Outpatient R CONOR MILLAN OGECHUKWU [facility] [id number] [facility] 2022-06-15 13:00:00 2022-06-15 14:25:54 Office Visit Con[facility] Millan [facility] 1.2.840.114 350.1.13.10 4.2.7.2.686 [id number] [facility] 2022-06-15 09:00:00 2022-06-15 09:00:00 Outpatient R CONOR MILLAN OGECHUKWU [facility] [id number] [facility] 2022-06-11 20:17:00 2022-06-11 22:51:00 Emergency X HENRIQUE BIANCHI [facility] ERT [id number] [facility] 2022-06-11 20:17:00 2022-06-11 22:51:00 Emergency Henrique Bianchi [facility] 1.2.840.114 350.1.13.10 4.2.7.2.686 [id number] [facility] 2022-06-09 08:11:00 2022-06-09 09:45:00 Emergency X GRAEME FLORES [facility] ERT [id number] [facility] 2022-06-09 08:11:00 2022-06-09 09:45:00 Emergency Graeme Flores O [facility] 1.2.840.114 350.1.13.10 4.2.7.2.686 [id number] [facility] 2022-01-10 00:00:00 2022-01-10 00:00:00 RefTarah Hutchison [facility] PROFESSIO [facility] 1.2.840.114 350.1.13.10 4.2.7.2.686 [id number] [facility] 2021-09-20 14:30:00 2021-09-20 14:30:00 Outpatient R ANTHONY MARTELL [facility] [id number] [facility] 2021-09-08 10:00:00 2021-09-08 10:00:00 Outpatient R [facility] [id number] [facility] 2021-08-06 09:47:00 2021-08-06 13:40:00 Emergency Maryjo Benoit S [facility] 1.2.840.114 350.1.13.10 4.2.7.2.686 [id number] [facility] 2021-08-03 13:30:00 2021-08-03 13:30:00 Outpatient R WEN NG [facility] [id number] [facility] 2021-07-29 15:30:00 2021-07-29 15:30:00 Outpatient R WEN NG [facility] [id number] [facility] 2021-07-27 13:00:00 2021-07-27 13:00:00 Outpatient R TARAH CUI [facility] [id number] [facility] 2021-07-26 00:00:00 2021-07-26 00:00:00 Telephone Hernandez Wen [facility] 1..840.114 350.1.13.10 4.2.7.2.686 [id number] [facility] 2021-07-13 00:00:00 2021-07-13 00:00:00 Outpatient R HUSAM SMITH [facility] [id number] [facility] 2021-07-12 00:00:00 2021-07-12 00:00:00 Patient Secure Msg Doctor Unassigned, [facility] 1.2.840.114 350.1.13.10 4.2.7.2.686 [id number] [facility] 2021-07-08 14:39:16 2021-07-08 23:59:00 Hospital Encounter Lexaradhasotero Tarah [facility] 1.2.840.114 350.1.13.10 4.2.7.2.686 [id number] [facility] 2021-07-08 14:39:16 2021-07-08 23:59:00 Hospital Encounter Tarah Cui [facility] 1.2.840.114 350.1.13.10 4.2.7.2.686 [id number] [facility] 2021-07-08 13:23:48 2021-07-08 14:28:41 Office Visit Tarah Cui [facility] 1.2.840.114 350.1.13.10 4.2.7.2.686 [id number] [facility] 2021-07-08 13:40:00 2021-07-08 13:40:00 Outpatient R TARAH CUI [facility] [id number] [facility] 2021-07-08 00:00:00 2021-07-08 00:00:00 Nurse Triage [facility] 1.2.840.114 350.1.13.10 4.2.7.2.686 [id number] [facility] 2021-07-08 00:00:00 2021-07-08 00:00:00 Nurse Triage [facility] 1.2.840.114 350.1.13.10 4.2.7.2.686 [id number] [facility] 2021-07-07 10:34:16 2021-07-07 12:04:12 Office Visit Husam Smith [facility] MARKET DEVELOPMENT DIRECTOR [facility] 1.2.840.114 350.1.13.10 4.2.7.2.686 [id number] [facility] 2021-07-07 10:34:16 2021-07-07 12:04:12 Office Visit Husam Smith [facility] MARKET DEVELOPMENT DIRECTOR [facility] 1.2.840.114 350.1.13.10 4.2.7.2.686 [id number] [facility] 2021-07-07 10:30:00 2021-07-07 10:30:00 Outpatient R HUSAM SMITH [facility] [id number] [facility] 2021-07-02 17:19:00 2021-07-02 19:22:00 Emergency Blaine Stark [facility] 1.2.840.114 350.1.13.10 4.2.7.2.686 [id number] [facility] 2021-07-02 17:19:00 2021-07-02 19:22:00 Emergency Blaine Stark [facility] 1.2.840.114 350.1.13.10 4.2.7.2.686 [id number] [facility] 2021-07-02 00:00:00 2021-07-02 00:00:00 Outpatient R TARAH CUI [facility] [id number] [facility] 2021-06-15 16:00:00 2021-06-15 16:00:00 Outpatient R [facility] [id number] [facility] 2021-06-11 13:30:00 2021-06-11 13:30:00 Outpatient R [facility] [id number] [facility] 2021-06-10 00:00:00 2021-06-10 00:00:00 Letter (Out) Cesilia Bruno [facility] 1.840.114 350.1.13.10 4.2.7.2.686 [id number] [facility] 2021-06-09 14:02:23 2021-06-09 14:45:42 Urgent Care [facility] Office [facility] 1.0.114 350.1.13.10 4.2.7.2.686 [id number] [facility] 2021-06-09 13:40:00 2021-06-09 14:00:00 Urgent Care [facility] 1.840.114 350.1.13.10 4.2.7.2.686 [id number] [facility] 2021-06-09 13:40:00 2021-06-09 13:40:00 Outpatient R HERBERT BIRD [facility] [id number] [facility] 2021-06-03 00:00:00 2021-06-03 00:00:00 Patient Secure Msg Martell [facility] 1..840.114 350.1.13.10 4.2.7.2.686 [id number] [facility] 2021-05-27 14:30:00 2021-05-27 14:30:00 Outpatient R JAYSHREE [facility] [id number] [facility] 2021-05-27 14:13:04 2021-05-27 14:28:04 Senior Game Advisor Visit Pob, Adc Lab Main Jayshree [facility] 1..840.114 350.1.13.10 4.2.7.2.686 [id number] [facility] 2021-05-27 00:00:00 2021-05-27 00:00:00 Orders Only Doctor Unassigned, [facility] 1.2.840.114 350.1.13.10 4.2.7.2.686 [id number] [facility] 2021-05-17 15:22:35 2021-05-17 15:52:35 Office Visit Jayshree [facility] 1..840.114 350.1.13.10 4.2.7.2.686 [id number] [facility] 2021-05-17 15:30:00 2021-05-17 15:30:00 Outpatient R JAYSHREE [facility] [id number] [facility] 2021-05-17 14:30:00 2021-05-17 14:30:00 Outpatient R ANTHONY MARTELL [facility] [id number] [facility] 2021-05-07 09:45:00 2021-05-07 09:45:00 Outpatient R SONYA BLACKWELL [facility] [id number] [facility] 2021-04-29 00:00:00 2021-04-29 00:00:00 Prep For Surgery Irina Archer [facility] 1..840.114 350.1.13.10 4.2.7.2.686 [id number] [facility] 2021-04-23 19:30:00 2021-04-23 19:30:00 Outpatient R LIBBY FISHER STRANMEddie [facility] [id number] [facility] 2021-04-23 14:59:30 2021-04-23 17:29:30 Senior Game Advisor Visit 1, [facility] Sleep Lab Bed Libby Fisher [facility] 1.840.114 350.1.13.10 4.2.7.2.686 [id number] [facility] 2021-04-23 00:00:00 2021-04-23 00:00:00 Telephone Irina Archer [facility] 1..840.114 350.1.13.10 4.2.7.2.686 [id number] [facility] 2021-04-23 00:00:00 2021-04-23 00:00:00 Orders Only Doctor Unassigned, [facility] .840.114 350.1.13.10 4.2.7.2.686 [id number] [facility] 2021-04-15 12:52:17 2021-04-15 13:44:49 Office Visit Sonya Blackwell [facility] 1.2.840.114 350.1.13.10 4.2.7.2.686 [id number] [facility] 2021-04-15 13:00:00 2021-04-15 13:00:00 Outpatient R RISHI SONYA [facility] [id number] [facility] 2021-04-15 00:00:00 2021-04-15 00:00:00 Orders Only Doctor Unassigned, [facility] 1.84.114 350.1.13.10 4.2.7.2.686 [id number] [facility] 2021-03-24 13:24:15 2021-03-24 13:54:15 Office Visit Libby Fisher [facility] 1.840.114 350.1.13.10 4.2.7.2.686 [id number] [facility] 2021-03-24 13:30:00 2021-03-24 13:30:00 Outpatient R LIBBY FISHER STRAHIL [facility] [id number] [facility] 2021-03-19 14:35:06 2021-03-19 15:18:03 Office Visit Tarah Cui [facility] [id number] [id number] [facility] 2021-03-19 13:22:14 2021-03-19 13:41:51 Nurse Visit Visit, [facility] Nurse Husam Smith [facility] MARK[employer] DEVELOPMENT DIRECTOR [facility] 1.84.114 [id number] [facility] 2021-03-19 13:30:00 2021-03-19 13:30:00 Outpatient R [facility] [id number] [facility] 2021-03-06 19:30:00 2021-03-06 19:30:00 Outpatient R LIBBY FISHER SHANIQUENMEddie [facility] [id number] [facility] 2021-03-05 14:46:41 2021-03-05 17:16:41 Senior Game Advisor Visit 1, [facility] Sleep Lab Bed Phillip Libby Jb [facility] 1.2840.114 350.1.13.10 4.2.7.2.686 [id number] [facility] 2021-03-03 13:59:41 2021-03-03 14:14:41 Laboratory Only Only, [facility] Test Vikki Archerdena Case [facility] 1.2.114 350.1.13.10 4.2.7.2.686 [id number] [facility] 2021-03-03 14:00:00 2021-03-03 14:00:00 Outpatient R [facility] [id number] [facility] 2021-03-03 12:54:40 2021-03-03 13:42:28 Office Visit Aditi Irina A [facility] nal Building 1.114 350.1.13.10 4.2.7.2.686 [id number] [facility] 2021-03-03 00:00:00 2021-03-03 00:00:00 Orders Only Doctor Unassigned, [facility] 1.2.114 350.1.13.10 4.2.7.2.686 [id number] [facility] 2021-02-12 00:00:00 2021-02-12 00:00:00 Patient Secure MsAnthony Hernandez [facility] NAL BUILDING 1..114 350.1.13.10 4.2.7.2.686 [id number] [facility] 2021-02-11 00:00:00 2021-02-11 00:00:00 Orders Only Doctor Unassigned, [facility] 1.2.114 350.1.13.10 4.2.7.2.686 [id number] [facility] 2021-02-10 11:25:58 2021-02-10 11:56:38 Office Visit Libby Fisher [facility] Building 1.840.114 350.1.13.10 4.2.7.2.686 [id number] [facility] 2021-02-10 11:30:00 2021-02-10 11:30:00 Outpatient R LIBBY FISHER STRAHIL [facility] [id number] [facility] 2021-02-01 12:29:47 2021-02-01 13:35:23 Office Visit Wen Ng [facility] 1..114 350.1.13.10 4.2.7.2.686 [id number] [facility] 2021-02-01 13:00:00 2021-02-01 13:00:00 Outpatient R WEN NG [facility] [id number] [facility] 2021-02-01 10:41:05 2021-02-01 10:56:05 Senior Game Advisor Visit Pob, Adc Lab Main Tarah Cui [facility] Building 1.840.114 350.1.13.10 4.2.7.2.686 [id number] [facility] 2021-01-26 13:00:00 2021-01-26 13:00:00 Outpatient R [facility] [id number] [facility] 2021-01-25 00:00:00 2021-01-25 00:00:00 Telephone Wen Ng [facility] 1..114 350.1.13.10 4.2.7.2.686 [id number] [facility] 2021-01-19 00:00:00 2021-01-19 00:00:00 Patient Secure Msg Jayshree [facility] 1.84.114 350.1.13.10 4.2.7.2.686 [id number] [facility] 2021-01-11 15:52:52 2021-01-11 16:07:52 Senior Game Advisor Visit 2, Adc Lab Jayshree [facility] 1.84.114 350.1.13.10 4.2.7.2.686 [id number] [facility] 2021-01-11 14:31:31 2021-01-11 15:48:57 Office Visit Jayshree [facility] 1.284.114 350.1.13.10 4.2.7.2.686 [id number] [facility] 2021-01-11 14:30:00 2021-01-11 14:30:00 Outpatient R JAYSHREE [facility] [id number] [facility] 2020-12-25 13:25:19 2020-12-25 13:56:10 Nurse Visit Visit, [facility] Nurse Husam Smith [facility] MARKET DEVELOPMENT DIRECTOR [facility] 1..114 350.1.13.10 4.2.7.2.686 [id number] [facility] 2020-12-25 13:00:00 2020-12-25 13:00:00 Outpatient R [facility] [id number] [facility] 2020-12-21 15:00:00 2020-12-21 15:00:00 Outpatient R [facility] [id number] [facility] 2020-12-15 18:31:00 2020-12-15 21:56:00 Emergency Diogo Ogden [facility] 1.2.840.114 350.1.13.10 4.2.7.2.686 [id number] [facility] 2020-12-15 15:37:46 2020-12-15 16:46:54 [facility] 1.2.840.114 350.1.13.10 4.2.7.2.686 [id number] [facility] 2020-12-15 15:20:00 2020-12-15 15:20:00 Outpatient R TARAH CUI [facility] [id number] [facility] 2020-11-30 13:00:00 2020-11-30 13:00:00 Outpatient R [facility] [id number] [facility] 2020-11-30 00:00:00 2020-11-30 00:00:00 Telephone Rose Spivey [facility] Building 1.2.840.114 350.1.13.10 4.2.7.2.686 [id number] [facility] 2020-11-19 13:07:22 2020-11-19 14:07:22 Ancillary Visit [facility] 1.2.840.114 350.1.13.10 4.2.7.2.686 [id number] [facility] 2020-11-18 14:06:54 2020-11-18 14:55:52 Office Visit Irina Archer [facility] Building 1.0.114 350.1.13.10 4.2.7.2.686 [id number] [facility] 2020-11-18 14:30:00 2020-11-18 14:30:00 Outpatient R IRINA ARCHER [facility] [id number] [facility] 2020-11-11 20:26:00 2020-11-11 22:14:00 Emergency WoodallEri monique [facility] 1.2840.114 350.1.13.10 4.2.7.2.686 [id number] [facility] 2020-11-11 00:00:00 2020-11-11 00:00:00 Orders Only Doctor Unassigned, [facility] 1.2840.114 350.1.13.10 4.2.7.2.686 [id number] [facility] 2020-11-09 12:44:30 2020-11-09 13:32:45 Office Visit Rey [facility] Resident Kusum Villeda [facility] 1.2840.114 350.1.13.10 4.2.7.2.686 [id number] [facility] 2020-11-09 13:00:00 2020-11-09 13:00:00 Outpatient R KUSUM VILLEDA [facility] [id number] [facility] 2020-11-03 14:03:42 2020-11-03 14:43:42 Ancillary Visit Rose Spivey Craig L [facility] Building 1.20.114 350.1.13.10 4.2.7.2.686 [id number] [facility] 2020-10-28 14:15:32 2020-10-28 14:30:32 Senior Game Advisor Visit V[facility] 1.2.840.114 350.1.13.10 4.2.7.2.686 [id number] [facility] 2020-10-28 13:27:25 2020-10-28 14:14:13 Office Visit Wen [facility] 1.2.840.114 350.1.13.10 4.2.7.2.686 [id number] [facility] 2020-10-28 14:00:00 2020-10-28 14:00:00 Outpatient WEN WERNER [facility] [id number] [facility] 2020-10-26 16:30:14 2020-10-26 16:51:26 Ancillary Visit Rose Spivey Craig L [facility] Building 1.2.84.114 350.1.13.10 4.2.7.2.686 [id number] [facility] 2020-10-19 13:34:39 2020-10-20 08:01:03 Ancillary Visit Rose Spivey Otto W [facility] Building 1.2.840.114 350.1.13.10 4.2.7.2.686 [id number] [facility] 2020-10-13 13:40:02 2020-10-13 14:40:02 Ancillary Visit Rose Spivey Otto W [facility] Building 1.2.84.114 350.1.13.10 4.2.7.2.686 [id number] [facility] 2020-10-13 13:40:00 2020-10-13 13:40:00 Outpatient MARTÍN ARMSTRONG [facility] [id number] [facility] 2020-09-28 15:09:13 2020-09-28 15:41:20 Nurse Visit Visit, Ang[facility] Nurse Husam Smith [facility] MARKET DEVELOPMENT DIRECTOR [facility] 1.2840.114 350.1.13.10 4.2.7.2.686 [id number] [facility] 2020-09-28 15:00:00 2020-09-28 15:00:00 Outpatient R [facility] [id number] [facility] 2020-09-22 12:31:07 2020-09-22 13:54:45 Office Visit Rey [facility] Resident Martín Amaro [facility] 1.0.114 350.1.13.10 4.2.7.2.686 [id number] [facility] 2020-09-22 13:00:00 2020-09-22 13:00:00 Outpatient R [facility] [id number] [facility] 2020-09-17 17:08:00 2020-09-17 23:59:00 Hospital Encounter [facility] 1.20.114 350.1.13.10 4.2.7.2.686 [id number] [facility] 2020-09-17 00:00:00 2020-09-17 00:00:00 Outpatient R BRYANT DAWN [facility] ACO [id number] [facility] 2020-09-17 00:00:00 2020-09-17 00:00:00 [facility] 1.20.114 350.1.13.10 4.2.7.2.686 [id number] [facility] 2020-09-16 11:05:36 2020-09-16 23:59:[address] [facility] 1.2840.114 350.1.13.10 4.2.7.2.686 [id number] [facility] 2020-09-16 15:37:49 2020-09-16 15:52:49 Senior Game Advisor Visit 2, Adc Lab Tarah Cui [facility] Building 1.2.840.114 350.1.13.10 4.2.7.2.686 [id number] [facility] 2020-09-16 13:53:45 2020-09-16 15:34:37 Office Visit Tarah Cui [facility] Building 1.2.840.114 350.1.13.10 4.2.7.2.686 [id number] [facility] 2020-09-16 10:03:26 2020-09-16 11:04:00 Hospital Encounter Jaskaran Werner [facility] 1.2.840.114 350.1.13.10 4.2.7.2.686 [id number] [facility] 2020-09-16 00:00:00 2020-09-16 00:00:00 [facility] [id number] 2020-09-12 08:06:08 2020-09-12 08:21:08 Senior Game Advisor Visit Pob, Adc Lab Main [facility] 1.2.840.114 350.1.13.10 4.2.7.2.686 [id number] [facility] 2020-09-12 08:00:00 2020-09-12 08:00:00 Outpatient R [facility] [id number] [facility] 2020-09-12 08:00:00 2020-09-12 08:00:00 Outpatient R [facility] [id number] [facility] 2020-09-12 00:00:00 2020-09-12 00:00:00 Orders Only Doctor Unassigned, [facility] 1.114 350.1.13.10 4.2.7.2.686 [id number] [facility] 2020-09-07 13:03:15 2020-09-07 13:40:31 Office Visit [facility] 1.114 350.1.13.10 4.2.7.2.686 [id number] [facility] 2020-09-07 13:15:00 2020-09-07 13:15:00 Outpatient R [facility] [id number] [facility] 2020-09-01 13:36:17 2020-09-01 14:03:30 Office Visit [facility] Resident Jaskaran Werner [facility] 1.114 350.1.13.10 4.2.7.2.686 [id number] [facility] 2020-09-01 13:30:00 2020-09-01 13:30:00 Outpatient R JASKARAN WERNER [facility] [id number] [facility] 2020-08-20 16:00:00 2020-08-20 16:00:00 [facility] [id number] 2020-08-14 14:00:00 2020-08-14 14:00:00 Outpatient R TARAH CUI [facility] [id number] [facility] 2020-08-05 12:42:02 2020-08-05 14:06:35 Office Visit [facility] Resident Yamilka Beard [facility] 1.114 350.1.13.10 4.2.7.2.686 [id number] [facility] 2020-08-05 13:00:00 2020-08-05 13:00:00 Outpatient R [facility] [id number] [facility] 2020-07-20 11:00:28 2020-07-20 11:32:40 Nurse Visit Nurse, [facility] Surgery Gu [facility] Professio [facility] 1.2.840.114 350.1.13.10 4.2.7.2.686 [id number] [facility] 2020-07-20 11:30:00 2020-07-20 11:30:00 Outpatient R [facility] [id number] [facility] 2020-07-20 00:00:00 2020-07-20 00:00:00 Orders Only Doctor Unassigned, [facility] 1.2.840.114 350.1.13.10 4.2.7.2.686 [id number] [facility] 2020-07-16 00:00:00 2020-07-16 00:00:00 [facility] 1.2.840.114 350.1.13.10 4.2.7.2.686 [id number] [facility] 2020-07-14 20:33:00 2020-07-15 19:15:00 Hospital Encounter Pankaj Whitt [facility] 1.2.840.114 350.1.13.10 4.2.7.2.686 [id number] [facility] 2020-07-14 17:03:00 2020-07-14 19:11:00 [facility] 1.2.840.114 350.1.13.10 4.2.7.2.686 [id number] [facility] 2020-07-14 00:00:00 2020-07-14 00:00:00 Orders Only Doctor Unassigned, [facility] 1.2.840.114 350.1.13.10 4.2.7.2.686 [id number] [facility] 2020-07-14 00:00:00 2020-07-14 00:00:[address] [facility] 1.2.840.114 350.1.13.10 4.2.7.2.686 [id number] [facility] 2020-07-06 14:31:23 2020-07-06 15:53:38 Office Visit Husam Smith [facility] MARKET DEVELOPMENT DIRECTOR [facility] MAT[facility] CHILD [facility] 1.2.840.114 350.1.13.10 4.2.7.2.686 [id number] [facility] 2020-07-06 15:30:00 2020-07-06 15:30:00 Outpatient R [facility] [id number] [facility] 2020-07-06 15:15:00 2020-07-06 15:15:00 Outpatient R HUSAM SMITH [facility] [id number] [facility] 2020-06-23 16:43:00 2020-06-23 18:37:00 Emergency Attila Vela [facility] 1.2.840.114 350.1.13.10 4.2.7.2.686 [id number] [facility] 2020-05-20 00:00:00 2020-05-20 00:00:00 Patient Secure Msg Doctor Unassigned, [facility] MARKET DEVELOPMENT DIRECTOR [facility] & CHILD [facility] 1.2.840.114 350.1.13.10 4.2.7.2.686 [id number] [facility] 2020-05-19 00:00:00 2020-05-19 00:00:00 Telephone Rosalva Kaye [facility] 1.2.840.114 350.1.13.10 4.2.7.2.686 [id number] [facility] 2020-05-18 18:08:14 2020-05-18 23:14:00 Emergency Rosalva Kaye [facility] 1.2840.114 350.1.13.10 4.2.7.2.686 [id number] [facility] 2020-05-18 00:00:00 2020-05-18 00:00:00 Orders Only Doctor Unassigned, [facility] 1.2840.114 350.1.13.10 4.2.7.2.686 [id number] [facility] 2020-04-13 15:01:21 2020-04-13 15:16:21 [facility] Corona [facility] MARKET DEVELOPMENT DIRECTOR [facility] CHILD [facility] 1.2840.114 350.1.13.10 4.2.7.2.686 [id number] [facility] 2020-04-13 15:00:00 2020-04-13 15:00:00 Outpatient R [facility] [id number] [facility] 2020-04-13 00:00:00 2020-04-13 00:00:00 Orders Only Doctor Unassigned, [facility] 1.2840.114 350.1.13.10 4.2.7.2.686 [id number] [facility] 2020-01-20 16:34:21 2020-01-20 16:52:54 Nurse Visit Visit, [facility] Lang Banda [facility] MARKET DEVELOPMENT DIRECTOR [facility] & CHILD [facility] 1.840.114 350.1.13.10 4.2.7.2.686 [id number] [facility] 2020-01-20 16:30:00 2020-01-20 16:30:00 Outpatient R LANG FAUSTIN [facility] [id number] [facility] 2019-11-22 17:18:13 2019-11-22 19:20:00 Emergency Carito, Katye R [facility] 1.2.840.114 350.1.13.10 4.2.7.2.686 [id number] [facility] 2019-11-22 00:00:00 2019-11-22 00:00:00 Orders Only Doctor Unassigned, [facility] 1.2.840.114 350.1.13.10 4.2.7.2.686 [id number] [facility] 2019-10-18 18:58:11 2019-10-18 21:15:00 Emergency X DAVID AVILA III [facility] ERT [id number] [facility] Results Test Description Test Time Test Comments Results Result Co mments Source [facility] [id number] 07:08:06ORDERING PHYSICIAN: ?LYNN ?TIERRA HISTORY: Pulmonary embolism (PE) suspected, positive D-dimer RIGHT-SIDED CHEST PAIN, N/V . D-Dimer 1.13 COMPARISON: none TECHNIQUE: ?CT angiogram of the chest withIV contrast. Multiplanar 2Dreformatted images were obtained. This study was performed according toALARA principle for radiation dose reduction. Additional 3D volume renderedimages were obtained. FINDINGS:No focal infiltrates or areas of airspace consolidation are seen. Nopleural effusions. There isno pneumothorax. No suspicious endobronchiallesions are seen in the central airways. Heart is normal in size. There isno pericardial effusion. No pathologically enlarged lymph nodes are seen inthe mediastinum or brenda. Aorta is normal in caliber. There is no evidenceof dissection. Pulmonary arteriesare also normal in caliber. No fillingdefects are seen to suggest the presence of pulmonary emboli. Limitedvisualization of the upper abdominal structures shows no evidence of acuteabnormalities. No suspicious focal osseous lesions are seen.[facility]-[id number] 06:03:15* Test Item Value Reference Range Interpretation Comments D-DIMER (test code = 6856084575) 1.13 See_Comment H [Automated message] The system which generated this result transmitted reference range: <0.50 ?g/mL (FEU). The reference range was not used to interpret this result as normal/abnormal. GERARDO (test code = GERARDO) This test may be used in conjunction with a clinical pretest probability (PTP) assessment model to exclude venous thromboembolism (VTE) in patients suspected of deep venous thrombosis (DVT) and pulmonary embolism (PE) A D-Dimer value less than 0.50 ?g/ml (FEU) has a negative predicative value of 96 to 100% (95% CI)and 97 to 100% (95% CI) as an aid in the diagnosis of deep vein thrombosis (DVT) and pulmonary embolism when there is low or moderate pretest probability of PE or DVT. D-Dimer values are expressed in initial fibrinogen equivalent units (FEU)" The assay results should be used with other information, including the clinical context, in forming a diagnosis. Lab Interpretation (test code = 39475-7) Abnormal [facility] [id number] 05:33:32* Test Item Value Reference Range Interpretation Comme nts TROPONIN I (test code = 5322678081) <=0.034 GERARDO (test code = GERARDO) Reference (Normal) Range (defined by the 99th percentile reference limit): <= 0.034 ng/mL Note: Cardiac troponin begins to rise 3-4 hours after the onset of ischemia. Repeat in 4-6 hours if the sample was drawn within 3-4 hours of the onset of the symptom and found normal. Diagnosis of myocardial injury is made with acute changes in cTn concentrations with at least one serial sample above the 99th percentile upper reference limit (URL), taken together with the patient's clinical presentation. Biotin has been reported to cause a negative bias, interpret results relative to patient's use of biotin. Lab Interpretation (test code = 23567-6) Normal [facility] Metabolic Panel ([id number])2024-07-07 05:21:56* Test Item Value Reference Range Interpretation Comme nts NA (test code = 0009546790) 137 mmol/L 135-145 K (test code = 0844417917) 3.8 mmol/L 3.5-5.0 CL (test code = 3205505056) 102 mmol/L 98-108 CO2 TOTAL (test code = 2707807046) 29 mmol/L 23-31 AGAP (test code = 0599755188) 6 2-16 BUN (test code = 7086102715) 19 mg/dL 7-23 GLUCOSE (test code = 1805725337) 108 mg/dL 70-110 CREATININE (test code = 2160-0) 0.77 mg/dL 0.50-1.04 TOTAL BILI (test code = 9554670446) 0.4 mg/dL 0.1-1.1 CALCIUM (test code = 6758392863) 9.2 mg/dL 8.6-10.6 T PROTEIN (test code = 7556882965) 7.4 g/dL 6.3-8.2 ALBUMIN (test code = 1408420442) 4.2 g/dL 3.5-5.0 ALK PHOS (test code = 7987684888) 90 U/L 34-122 ALTv (test code = 1742-6) 16 U/L 5-35 AST(SGOT) (test code = 4978337076) 21 U/L 13-40 eGFR (test code = 24212-9) 95.9 mL/min/1.73m2 CKD-EPI eGFR (20 21). Assuming creatinine has been stable day-to-day for at least three months, the eGFR indicates Category G1 (>= 90 mL/min/1.73 m2) [facility]24-[facility] 05:21:56* Test Item Value Reference Range Interpretation Comme nts LIPASE (test code = 4088364308) 86 U/L 0-220 Lab Interpretation (test cod e = 10305-3) Normal [facility] Renaissance[facility]bc with [id number] 05:18:15* Test Item Value Reference Range Interpretation Comme nts WBC (test code = 6690-2) 8.43 4.30-11.10 RBC (test code = 789-8) 3.69 3.93-5.25 L HGB (test code = 718-7) 11.8 g/dL 11.6-15.0 HCT (test code = 4544-3) 33.9 % 35.7-45.2 L MCV (test code = 787-2) 91.9 fL 80.6-95.5 MCH (test code = 785-6) 32.0 pg 25.9-32.8 MCHC (test code = 786-4) 34.8 g/dL 31.6-35.1 RDW-SD (test code = 34017-7) 41.2 fL 39.0-49.9 RDW-CV (test code = 788-0) 12.3 % 12.0-15.5 PLT (test code = 777-3) 343 166-358 MPV (test code = 95511-6) 9.4 fL 9.5-12.9 L NRBC/100 WBC (test code = 8610054188) 0.0 0.0-10.0 NRBC x10^3 (test code = 5436683461) See_Comment [Automated messa ge] The system which generated this result transmitted reference range: 10*3/?L. The reference range was not used to interpret this result as normal/abnormal. GRAN MAT (NEUT) % (test code = 770-8) 53.4 % IMM GRAN % (test code = 3686650534) 0.40 % LYMPH % (test code = 736-9) 32.7 % MONO % (test code = 5905-5) 8.2 % EOS % (test code = 713-8) 4.7 % BASO % (test code = 706-2) 0.6 % GRAN MAT x10^3(ANC) (test code = 5450918863) 4.50 10*3/uL 1.88-7.09 IMM GRAN x10^3 (test code = 4958281961) 0.03 10*3/uL 0.00-0.06 LYMPH x10^3 (test code = 731-0) 2.76 10*3/uL 1.32-3.29 MONO x10^3 (test code = 742-7) 0.69 10*3/uL 0.33-0.92 EOS x10^3 (test code = 711-2) 0.40 10*3/uL 0.03-0.39 H BASO x10^3 (test code = 704-7) 0.05 10*3/uL 0.01-0.07 Lab Interpretation (test code = 60975-5) [facility] ([id number])2022-09-18 22:14:05* Test Item Value Reference Range Interpretation Comme nts NA (test code = 2717589306) 139 mmol/L 135-145 K (test code = 7223484294) 4.1 mmol/L 3.5-5.0 CL (test code = 6528981946) 105 mmol/L 98-108 CO2 TOTAL (test code = 3689083500) 29 mmol/L 23-31 AGAP (test code = 7463345284) 2-16 BUN (test code = 0865030505) 17 mg/dL 7-23 GLUCOSE (test code = 9920234073) 98 mg/dL 70-110 CREATININE (test code = 6108489053) 0.72 mg/dL 0.50-1.04 TOTAL BILI (test code = 5403785219) 0.3 mg/dL 0.1-1.1 CALCIUM (test code = 8133345889) 10.2 mg/dL 8.6-10.6 T PROTEIN (test code = 6142535332) 7.1 g/dL 6.3-8.2 ALBUMIN (test code = 5873941235) 4.3 g/dL 3.5-5.0 ALK PHOS (test code = 7597041123) 112 U/L 34-122 ALTv (test code = 1742-6) 17 U/L 5-35 AST(SGOT) (test code = 0511853830) 18 U/L 13-40 eGFR (test code = 2542278826) mL/min/1.73m2 GERARDO (test code = GERARDO) Association of Glomerular Filtration Rate (GFR) and Staging of Kidney Disease* + + +- +| GFR (mL/min/1.73 m2) ?| With Kidney Damage ?| ?Without Kidney Damage+ ------+ ----+ ------+| ?>90 ?| ?Stage one ?| ? Normal ?+ -+ + -+| ?60-89 ?| ?Stage two ?| ? Decreased GFR ? + + +- +| ?30-59 ?| ?Stage three ?| ? Stage three ? + + +- +| ?15-29 ?| ?Stage four ? | ? Stage four ?+ -+ + -+| ?<15 (or dialysis) ? ?| ?Stage five ? | ? Stage five ?+ -+ + -+ *Each stage assumes the associated GFR level has been in effect for at least three months. ?Stages 1 to 5, with or without kidney disease, indicate chronic kidney disease. Notes: Determination of stages one and two (with eGFR >59mL/min/1.73 m2) requires estimation of kidney damage for at least three months as defined by structural or functional abnormalities of the kidney, manifested by either:Pathological abnormalities or Markers of kidney damage (including abnormalities in the composition of the blood or urine or abnormalities in imaging tests). [facility] Notes Date/Time Note Provider Source 2024-07-07 03:44:52 Pt given printed and verbal discharge instructions regarding chest pain. Encouraged hydration, Prescriptions provided:phenergan Discussed ibuprofen and to take with food to avoid GI distress. Discussed phenergan side affects and to avoid driving/operating machinery/or engaging in activities requiring alertness while taking. Pt verbalized understanding of instructions, pt awake alert oriented, resp reg unlabored, skin w/d, color appropriate for race, moves all ext well,pt encouraged to follow up with pcp. Advised to seek medical attention for new/prolonged/worsening of symptoms, Symptoms improved No adverse reaction to meds given in ER noted upon discharge PIV d'cd, dressing to site, catheter in tact. Awake, alert oriented, resp reg unlabored, skin w/d, pt leaving amb with steady gait, in no apparent distress, accompanied by family. Dimple Mendez RN [facility] 2024-07-06 23:30:00 Summary: EKG EKG done in triage [facility] 2024-07-06 23:26:07 Summary: Triage CC: patient states she is having chest pain that radiates to the back and has been vomiting since this morning patient is holding the right arm up to the chest PMHx: none PSH:tubal gallbladder x 3 MEDS:none LMP: menopause Tetanus: UTD Awake, alert, oriented, resp reg unlabored, skin warm, color appropriate for race, moves all ext without difficulty, amb with out assistance Appears in no distress Sammi Granados RN [facility]
--- NOTE | 2024-07-07 15:25 | RAD REPORT ---
EXAM DESCRIPTION: RAD - Chest Single View - 07/07/2024 3:20 pm CLINICAL HISTORY: CHEST PAIN Chest pain. COMPARISON: <Comparisons> FINDINGS: Portable technique limits examination quality. The lungs are grossly clear. The heart is normal in size. No displaced fractures. IMPRESSION: No acute intrathoracic process suspected.
[2024-07-07 16:07] LABS: Absolute Eosinophils 0.3 K/uL (0-0.5); Absolute Lymphocytes (CBC) 1.9 K/uL (0.7-4.9); Absolute Monocytes 0.7 K/uL (0.1-1.3); Absolute Neutrophil 5.7 K/uL (1.8-8.0); Basophils % 0.5 % (0-1.3); Hematocrit 34.6 % (36.0-45.0); Hemoglobin 11.6 g/dL (12.0-15.0); MCH 31.3 pg (27.0-35.0); MCHC 33.5 g/dL (32.0-36.0); MCV 93.6 fL (80-100); MPV 7.6 fL (7.6-11.3); Monocytes % 7.8 % (3.3-12.3); Neutrophils % 65.7 % (41.7-73.7); Platelets 319 thou/uL (152-406); RBC Red Blood Cell Count 3.69 M/uL (3.86-4.86); Red Cell Distribution Width 12.8 % (12.1-15.2)
[2024-07-07 16:12] LABS: PT Prothrombin Time 11.2 SECONDS (9.4-12.5)
[2024-07-07 16:22] LABS: ALT/SGPT 19 U/L (13-56); Albumin 3.4 g/dL (3.4-5.0); Albumin/Globulin Ratio 0.9 (1.1-1.8); Alkaline Phosphatase 92 U/L (45-117); Anion Gap 7.5 mEq/L (5.0-15.0); BUN Blood Urea Nitrogen 23 mg/dL (7-18); Bicarbonate 28 mEq/L (21-32); Bilirubin Total 0.2 mg/dL (0.2-1.0); Globulin 3.6 g/dL (2.3-3.5); Glomerular Filtration Rate 78 ml/min (=/>90); Glucose Level 93 mg/dL (74-106); Magnesium 2.3 mg/dL (1.6-2.4); NT PRO-BNP 64 pg/mL (<125); Potassium 3.5 mEq/L (3.5-5.1); Sodium Level 140 mEq/L (136-145); Troponin High Sensitivity 3.9 pg/mL (<58.9)
[2024-07-07 16:29] LABS: AST/SGOT < 10 U/L (15-37); Bilirubin Direct < 0.2 mg/dL (0-0.2)
--- NOTE | 2024-07-07 16:35 | EDPHYS ---
Physician Documentation [facility] Name: Brandee Marroquin Age: 48 yrs Sex: Female : 1975 Arrival Date: 07/07/2024 Time: 14:58 Bed 20 Private MD: ED Physician Jennifer Carpenter HPI: 07/07 16:01 This 48 yrs old Female presents to ER via EMS with complaints of Shoulder Pain. sp3 16:01 48-year-old female with history of kidney stones, depression now presents with chest sp3 pain stating that she went to outside hospital at [facility] and was told that her "cardiac enzymes were positive" and to follow-up with her physician. She now presents here via EMS for continued symptoms and request for reevaluation. She denies any other symptoms including fever, headache, neck pain, shortness of breath, abdominal pain, vomiting, diarrhea, syncope, near syncope or any other signs or symptoms on ROS at this time.. Historical: - Allergies: 15:08 No Known Allergies; hb - Home Meds: 15:08 None [Active]; hb - PMHx: 15:08 Kidney Stones; Anxiety; Depression; hb - PSHx: 15:08 Lithotripsy; Renal Stent; section; Cholecystectomy; hb - Immunization history:: Adult Immunizations up to date. - Infectious Disease History:: Denies. - Social history:: Smoking status: Patient denies any tobacco usage or history of. ROS: 16:03 Constitutional: Negative for fever, chills, and weight loss, Eyes: Negative for injury, sp3 pain, redness, and discharge, Neck: Negative for injury, pain, and swelling, Respiratory: Negative for shortness of breath, cough, wheezing, and pleuritic chest pain, Abdomen/GI: Negative for abdominal pain, nausea, vomiting, diarrhea, and constipation, Back: Negative for injury and pain, MS/Extremity: Negative for injury and deformity, Skin: Negative for injury, rash, and discoloration, Neuro: Negative for headache, weakness, numbness, tingling, and seizure, Psych: Negative for depression, anxiety, suicide ideation, homicidal ideation, and hallucinations, Allergy/Immunology: Negative for hives, rash, and allergies, Endocrine: Negative for neck swelling, polydipsia, polyuria, polyphagia, and marked weight changes, Hematologic/Lymphatic: Negative for swollen nodes, abnormal bleeding, and unusual bruising, 16:03 All other systems are negative, Exam: 16:03 Constitutional: This is a well developed, well nourished patient who is awake, alert, sp3 and in no acute distress. Head/Face: Normocephalic, atraumatic. Eyes: Pupils equal round and reactive to light, extra-ocular motions intact. Lids and lashes normal. Conjunctiva and sclera are non-icteric and not injected. Cornea within normal limits. Periorbital areas with no swelling, redness, or edema. ENT: Nares patent. No nasal discharge, no septal abnormalities noted. External auditory canals are clear. Oropharynx with no redness, swelling, or masses, exudates, or evidence of obstruction, uvula midline. Mucous membranes moist. Neck: Trachea midline, no thyromegaly or masses palpated, and no cervical lymphadenopathy. Supple, full range of motion without nuchal rigidity, or vertebral point tenderness. No Meningismus. Chest/axilla: Normal chest wall appearance and motion. Nontender with no deformity. No lesions are appreciated. Cardiovascular: Regular rate and rhythm with a normal S1 and S2. No gallops, murmurs, or rubs. Normal PMI, no JVD. No pulse deficits. Respiratory: Lungs have equal breath sounds bilaterally, clear to auscultation and percussion. No rales, rhonchi or wheezes noted. No increased work of breathing, no retractions or nasal flaring. Abdomen/GI: Soft, non-tender, with normal bowel sounds. No distension or tympany. No guarding or rebound. No evidence of tenderness throughout. Back: No spinal tenderness. No costovertebral tenderness. Full range of motion. Skin: Warm, dry with normal turgor. Normal color with no rashes, no lesions, and no evidence of cellulitis. MS/ Extremity: Pulses equal, no cyanosis. Neurovascular intact. Full, normal range of motion. Neuro: Awake and alert, GCS 15, oriented to person, place, time, and situation. Cranial nerves II-XII grossly intact. Motor strength 5/5 in all extremities. Sensory grossly intact. Cerebellar exam normal. Normal gait. Psych: Awake, alert, with orientation to person, place and time. Behavior, mood, and affect are within normal limits. 16:03 ECG was reviewed by the Attending Physician. EKG demonstrates normal sinus rhythm at 67 bpm with normal intervals, normal QRS, normal axis, normal ST's ST segments without evidence of acute ischemia. Vital Signs: 15:04 BP 111 / 78; Pulse 77; Resp 14; Temp 97.7(TE); Pulse Ox 99% on R/A; Weight 83.91 kg; hb Height 5 ft. 2 in. ; Pain 10/10; 16:47 BP 101 / 63; Pulse 89; Resp 19; Pulse Ox 97% ; bp 15:04 Body Mass Index 33.84 (83.91 kg, 157.48 cm) hb 15:04 Pain Scale: Adult hb MDM: 15:10 Patient medically screened. sp3 16:04 Data reviewed: vital signs, nurses notes, EMS record, lab test result(s), EKG, sp3 radiologic studies. ED course: 48-year-old female with chest pain. Differential diagnosis includes musculoskeletal pain, pleuritic pain, and to lesser degree ACS related pathology. EKG is normal. Patient was evaluated at outside hospital yesterday as well and discharged. Today patient appears to be in no acute distress with normal EKG and chest x-ray and labs pending. Disposition pending workup and patient course with probable discharge home if workup is negative.. 16:33 ED course: Full negative workup. Patient in no acute distress. We will safely discharge sp3 home at this time. I do not believe patient is having acute coronary syndrome, PE, TAD, or any other critical illness.. 07/07 15:10 Order name: Basic Metabolic Panel; Complete Time: 16:33 3 07/07 15:10 Order name: CBC with Diff; Complete Time: 16:33 3 07/07 15:10 Order name: LFT's; Complete Time: 16:33 3 07/07 15:10 Order name: Magnesium; Complete Time: 16:33 3 07/07 15:10 Order name: NT PRO-BNP; Complete Time: 16:33 3 07/07 15:10 Order name: PT-INR; Complete Time: 16:33 3 07/07 15:10 Order name: Troponin HS; Complete Time: 16:33 3 07/07 15:10 Order name: XRAY Chest (1 view); Complete Time: 15: 3 07/07 15:10 Order name: EKG; Complete Time: 15:11 sp3 07/07 15:10 Order name: Cardiac monitoring; Complete Time: 15:48 sp3 07/07 15:10 Order name: EKG - Nurse/Tech; Complete Time: 15:54 sp3 07/07 15:10 Order name: IV Saline Lock; Complete Time: 15:48 sp3 07/07 15:10 Order name: Labs collected and sent; Complete Time: 15:48 sp3 07/07 15:10 Order name: O2 Per Protocol; Complete Time: 15:48 sp3 07/07 15:10 Order name: O2 Sat Monitoring; Complete Time: 15:48 sp3 Administered Medications: No medications were administered Disposition Summary: 07/07/24 16:34 Discharge Ordered Notes: Location: Home sp3 Condition: Stable sp3 Diagnosis - Chest pain sp3 Followup: sp3 - With: Private Physician - When: Upon discharge from the Emergency Department - Reason: Continuance of care Discharge Instructions: - Discharge Summary Sheet sp3 - Nonspecific Chest Pain, Adult sp3 Forms: - Work release form eb - Medication Reconciliation Form sp3 - Antibiotic Education sp3 - Prescription Opioid Use sp3 - Patient Portal Instructions sp3 - Leadership Thank You Letter sp3 Signatures: Dispatcher [employer] Josefa Leonardo, Jennifer Coelho RN, MD MD sp3
--- NOTE | 2024-07-07 16:35 | ER ---
Nurse's Notes [facility] Name: Brandee Marroquin Age: 48 yrs Sex: Female : 1975 Arrival Date: 07/07/2024 Time: 14:58 Bed 20 Private MD: Diagnosis: Chest pain Presentation: 07/07 15:04 Chief complaint: EMS states: Intermittent right sided chest pain x 2 days. 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 20g LAC. Coronavirus screen: At this time, the client does not indicate any symptoms associated with coronavirus-19. Ebola Screen: No symptoms or risks identified at this time. Initial Sepsis Screen: Does the patient meet any 2 criteria? No. Patient's initial sepsis screen is negative. Does the patient have a suspected source of infection? No. Patient's initial sepsis screen is negative. Risk Assessment: Do you want to hurt yourself or someone else? Patient reports no desire to harm self or others. Onset of symptoms was July 06, 2024. 15:04 Method Of Arrival: EMS: [facility] 15:04 Acuity: ISHA 2 hb Triage Assessment: 15:04 General: Appears in no apparent distress. Behavior is cooperative, appropriate for age, bp anxious. Pain: Complains of pain in chest. EENT: No deficits noted. Neuro: No deficits noted. Cardiovascular: Rhythm is sinus rhythm. Respiratory: No deficits noted. GI: No signs and/or symptoms were reported involving the gastrointestinal system. : No signs and/or symptoms were reported regarding the genitourinary system. Derm: No deficits noted. Musculoskeletal: No deficits noted. Historical: - Allergies: 15:08 No Known Allergies; hb - Home Meds: 15:08 None [Active]; hb - PMHx: 15:08 Kidney Stones; Anxiety; Depression; hb - PSHx: 15:08 Lithotripsy; Renal Stent; section; Cholecystectomy; hb - Immunization history:: Adult Immunizations up to date. - Infectious Disease History:: Denies. - Social history:: Smoking status: Patient denies any tobacco usage or history of. Screenin:05 [facility] ED Fall Risk Assessment (Adult) History of falling in the last 3 months, bp including since admission No falls in past 3 months (0 pts) Confusion or Disorientation No (0 pts) Intoxicated or Sedated No (0 pts) Impaired Gait No (0 pts) Mobility Assist Device Used No (0 pt) Altered Elimination No (0 pt) Score/Fall Risk Level 0 - 2 = Low Risk. Abuse screen: Denies threats or abuse. Denies injuries from another. Nutritional screening: No deficits noted. Tuberculosis screening: No symptoms or risk factors identified. Assessment: 15:10 General: Appears in no apparent distress. Behavior is cooperative, appropriate for age, bp anxious. Pain: Complains of pain in chest. Neuro: No deficits noted. Cardiovascular: No deficits noted. Respiratory: No deficits noted. GI: No signs and/or symptoms were reported involving the gastrointestinal system. : No signs and/or symptoms were reported regarding the genitourinary system. EENT: No deficits noted. Derm: No deficits noted. 16:45 Reassessment: Patient appears in no apparent distress at this time. Patient is alert, bp oriented x 3, equal unlabored respirations, skin warm/dry/pink. Vital Signs: 15:04 BP 111 / 78; Pulse 77; Resp 14; Temp 97.7(TE); Pulse Ox 99% on R/A; Weight 83.91 kg; hb Height 5 ft. 2 in. ; Pain 10/10; 16:47 BP 101 / 63; Pulse 89; Resp 19; Pulse Ox 97% ; bp 15:04 Body Mass Index 33.84 (83.91 kg, 157.48 cm) hb 15:04 Pain Scale: Adult hb ED Course: 15:01 Patient arrived in ED. bp 15:04 Emil Fenton, RN is Primary Nurse. bp 15:04 Arm band placed on. bp 15:05 Patient has correct armband on for positive identification. bp 15:08 Triage completed. hb 15:08 Jennifer Carpenter MD is Attending Physician. sp3 15:22 XRAY Chest (1 view) In Process Unspecified. EDMS 16:45 Provided Education on: N/A. bp 16:45 No provider procedures requiring assistance completed. IV discontinued, intact, bp bleeding controlled, No redness/swelling at site. Pressure dressing applied. Administered Medications: No medications were administered Medication: 16:45 VIS not applicable for this client. bp Outcome: 16:34 Discharge ordered by . sp3 16:45 Discharged to home ambulatory, with family, bp 16:45 Condition: stable 16:45 Discharge instructions given to patient, family, Instructed on discharge instructions, follow up and referral plans. Demonstrated understanding of instructions, follow-up care, 16:49 Patient left the ED. bp Signatures: Dispatcher [employer] EDJosefa Peña, RN RN Emil Marshall RN RN bp Jennifer Carpenter MD MD sp3
[2024-07-07 17:09] VITALS: TEMP 97.7
[2024-07-07 17:10] VITALS: BP 101/63; O2SAT 97
--- NOTE | 2024-07-09 12:41 | EKG ---
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
== END 2024-07-07 16:49 | disposition home or self-care (01) ==
LOC: ER 14:58
DX: R07.9 Chest pain, unspecified (principal); M25.511 Pain in right shoulder
CPT/HCPCS: 36415; 71045; 80048; 80076; 83735; 83880; 84484; 85025; 85610; 93005; 99283

== ENCOUNTER 2024-07-09 18:51 | Inpatient (IN) | payer OTHER, SELFPAY ==
--- OUTSIDE RECORDS SUMMARY | 2024-07-09 18:56 | XMS REPORT | Continuity of Care Document ---
Author Name Unknown Address [address] [facility] [address] [place] [address] [facility] thconnect Address [address] [facility] [place] [address] Care Team Providers Care Cart Driver Name Role Phone CONOR MILLAN Primary Care Physician SONYA Galvez Attending Clinician Unavailable YAJAIRA FLYNN Attending Clinician Unavailab LYNN Driver Attending Clinician Unavailable LYNN NAVA Attending Clinician Unavailable Lynn Nava MD Attending Clinician RATNA MCKEON Attending Clinician Unavailable CONOR MILLAN Attending Clinician Unavailab CONOR Patrick Attending Clinician Unavailab HUSAM Granger Attending Clinician Unavailable Husam Kirk MD Attending Clinician ABDON BUITRAGO Attending Clinician Unavaila Abdon Roberson Attending Clinician [phone] Rosalva KAYE Attending Clinician Unavailable Mikki PACRosalva Attending Clinician + [phone] AUDRA WELLS Attending Clinician Unavailgiselle Wells MD, Audra Reeder Attending Clinician + [phone] HENRIQUE BIANCHI Attending Clinician Unavailable Tash VISUAL MANAGER, Henrique T Attending Clinician [phone] GRAEME FLORES Attending Clinician UnavailGraeme Delarosa MD Attending Clinician [phone] Tarah Cui MD Attending Clinician [phone] ANTHONY MARTELL Attending Clinician Unavailable yC PAC, Maryjo S Attending Clinician [phone] WEN NG Attending Clinician UnavailTARAH Curiel Attending Clinician Unavailable Hernandez AGNWen Avelar Attending Clinician + [phone] HUSAM SMITH Attending Clinician Unavail able Doctor Unassigned, [place] Attending Clinician U sushant Neal RN, Jennifer Attending Clinician Unavailab zara Smith WHCNP, Husam Denney Attending Clinician + Lincoln HERNANDEZ, Blaine Flynn Attending Clinician + [phone] Kiana HERNANDEZ, Cesilia Attending Clinician Unavailable Herbert Garcia Attending Clinician [phone] HERBERT KERNS Attending Clinician Unavailable Anthony Martell MD Attending Clinician Unavaila ble Pob, [facility] Main Attending Clinician UnavailBen HUGHESP, Irina Case Attending Clinician [phone] LIBBY FISHER Attending Clinician Unavaila LIBBY Bajwa Attending Clinician Unavaila ble 1, [facility] Bed Attending Clinician Unavail able Libby Fisher MD Attending Clinician + [phone] Rishi ENRIQUE, Sonya Attending Clinician [phone] [facility], [facility] Attending Clinician Unava ilable Only, [facility] Test Attending Clinician Unavailable 2, [facility] Attending Clinician Unavailable Diogo Ogden MD Attending Clinician [phone] Allyssa AZAR, Mercy G Attending Clinician Unavailab zara Amaro MD, Martín W Attending Clinician [phone] IRINA ARCHER Attending Clinician Unavailable Jose C VISUAL MANAGER, Eri Attending Clinician +- [phone] [facility]ending [facility] Unavailab zara Villeda MD, Kusum Attending Clinician +[phone] KUSUM VILLEDA Attending Clinician Unavailable Rocael ENRIQUE, Jerad L Attending Clinician [phone] [facility] Attending Clinician Unavailable MARTÍN AMARO Attending Clinician Unavailable Saud ENRIQUE, Bryant Attending Clinician +[phone] BRYANT VILLAVICENCIO Attending Clinician Unavailgiselle Goodman MD, Terence Attending Clinician +[phone] Debbi HERNANDEZ, Jaskaran Attending Clinician +[phone] JASKARAN WERNER Attending Clinician Unavailable TERENCE GOODMAN Attending Clinician Unavailable Chirag ENRIQUE, Laura Attending Clinician [phone] Nurse, [facility] Surgery Attending Clinician Harmeet Prather RN, Maris Morgan Attending Clinician Unavail able Pankaj Whitt MD Attending Clinician Domingo HERNANDEZ, Alejandro Attending Clinician Unavailab zara Vela VISUAL MANAGER, Attila Banegas Attending Clinician [phone] Cj VISUAL MANAGER, Marina R Attending Clinician + [phone] Lang Lopez Attending Clinician [phone] LANG FAUSTIN Attending Clinician Unavailabl gustavo HUGHESP, Bhavin R Attending Clinician +[phone] DAVID AVILA III Attending Clinician Unavaila SONYA Demarco Admitting Clinician Unavailable HUSAM KIRK Admitting Clinician Unavailable ABDON BUITRAGO Admitting Clinician Unavaila HENRIQUE Veliz Admitting Clinician Unavailable Pankaj Whitt MD Admitting Clinician LISA HANNA Admitting Clinician Unavailable Payers Payer Name Policy Type Policy Number Effective Date Expirati on Date Source [facility] [id number] 2018 00:00:00 [employer] GENERIC [id number] 2024 00:00:00 BLUE ESSENTIALS O [id number] 00:00:00 Problems Condition Name Condition Details Condition Category Status Onset Date Resolution Date Last Treatment Date Treating Clinician Comments Source Bronchitis Bronchitis Disease Active 07-08 00:00: 00 [facility] Vomiting without nausea, not intractabl e Vomiting without nausea, not intractabl e Disease Active 07-08 00:00: 00 [facility] Productive cough Productive cough Disease Active 07-08 00:00: 00 [facility] Vomiting without nausea, not intractabl e Vomiting without nausea, not intractabl e Disease Active 07-08 00:00: 00 [facility] Left flank pain Left flank pain Disease Active 12-15 00:00: 00 [facility] Hypercalci uria Hypercalci uria Disease Active 12-15 00:00: 00 [facility] Anemia, unspecifie d type Anemia, unspecifie d type Disease Active 2019-11 00:00: 00 [facility] Gastroesop hageal reflux disease without esophagiti s Gastroesop hageal reflux disease without esophagiti s Disease Active 2019-11 00:00: 00 [facility] Migraine equivalent syndrome Migraine equivalent syndrome Disease Active 2019-11 00:00: 00 [facility] Weakness Weakness Disease Active 2019-11 00:00: 00 [facility] Orthostasi s Orthostasi s Disease Active 2019-11 00:00: 00 [facility] Nonintract able headache, unspecifie d chronicity pattern, unspecifie d headache type Nonintract able headache, unspecifie d chronicity pattern, unspecifie d headache type Disease Active 2019-11 00:00: 00 [facility] Need for pneumococc al vaccinatio n Need for pneumococc al vaccinatio n Disease Active 2019-11 00:00: 00 [facility] Need for pneumococc al vaccinatio n Need for pneumococc al vaccinatio n Disease Active 2019-11 1-11 00:00: 00 [facility] Left nephrolith iasis Left nephrolith iasis Disease Active 9 00:00: 00 [facility] Health maintenanc e examinatio n Health maintenanc e examinatio n Disease Active 8 00:00: 00 [facility] Acute midline low back pain without sciatica Acute midline low back pain without sciatica Disease Active 8 00:00: 00 [facility] Dyspareuni a in female Dyspareuni a in female Disease Active 02-18 00:00: 00 [facility] S/P laparoscop ic cholecyste ctomy S/P laparoscop ic cholecyste ctomy Disease Active 08-03 00:00: 00 [facility] Calculus of gallbladde r without cholecysti tis without obstructio n Calculus of gallbladde r without cholecysti tis without obstructio n Disease Active 08-01 00:00: 00 Overview: Formattin g of this note might be different from the original. Added automatic ally from request for surgery [id number] [facility] Urinary tract infection Urinary tract infection Disease Active 07-31 00:00: 00 [facility] Abdominal pain Abdominal pain Disease Active 07-31 00:00: 00 [facility] Calculus of gallbladde r Calculus of gallbladde r Disease Active 07-31 00:00: 00 [facility] Menorrhagi a Menorrhagi a Disease Active 05-26 00:00: 00 [facility] Well woman exam Well woman exam Disease Active 03-09 00:00: 00 [facility] Depression (emotion) Depression (emotion) Disease Active 03-09 00:00: 00 [facility] Encounter for other general counseling or advice on contracept ion Encounter for other general counseling or advice on contracept ion Disease Active 02-10 00:00: 00 [facility] Pelvic pain Pelvic pain Disease Active 02-10 00:00: 00 [facility] Overweight Overweight Disease Active 03-27 00:00: 00 Overview: Formattin g of this note might be different from the original. ICD10 Diagnosis Term Opener Utility [facility] Tubal ligation status Tubal ligation status Disease Active 03-27 00:00: 00 [facility] BV (bacterial vaginosis) BV (bacterial vaginosis) Disease Resolve d 03-27 00:00: 00 2016-03-30 00:00:00 2016-03-30 12:23:50 [facility] Breast discharge Breast discharge Disease Resolve d 03-27 00:00: 00 2016-03-30 00:00:00 2016-03-30 12:23:54 [facility] Allergies, Adverse Reactions, Alerts Allergy Name Allergy Type Status Severity Reaction(s) Onset Date Inactive Date Treating Clinician Comments Source Egg Drug Allergy Active Diarrhea 07-15 00:00: 00 [facility] EGG DRUG INGREDI Active Low Diarrhea 07-15 00:00: 00 [facility] Egg Drug Intolera nce Active Diarrhea 07-15 00:00: 00 [facility] Social History Social Habit Start Date Stop Date Quantity Comments Source Gender identity [facility] Sexual orientation [facility] History SDOH Alcohol Frequency [facility] History SDOH Alcohol Std Drinks [facility] History SDOH Alcohol Binge [facility] Alcoholic beverage intake 2024-07-06 00:00:00 2024-07-06 00:00:00 Current drinker of alcohol (finding) [facility] Alcohol intake 2023-10-11 00:00:00 2023-10-11 00:00:00 Current drinker of alcohol (finding) [facility] Exposure to SARS-CoV-2 (event) 2023-03-12 00:00:00 2023-03-22 16:42:00 Not sure [facility] Tobacco use and exposure 2022-06-15 00:00:00 2022-06-15 00:00:00 Smokeless tobacco non-user [facility] History of Social function 2022-06-15 00:00:00 2022-06-15 00:00:00 [facility] Alcohol Comment 2017-03-09 00:00:00 2017-03-09 00:00:00 social [facility] Sex assigned at 1975 00:00:00 1975 00:00:00 [facility] Smoking Status Start Date Stop Date Source Never smoked tobacco [facility] Medications Ordered Medication Name Filled Medication Name Start Date Stop Date Current Medication? Ordering Clinician Indication Dosage Frequency Signature (SIG) Comments Components Source HYDROcodone -acetaminop hen (NORCO) 10-325 mg tablet 1 tablet 07-07 09:00: 00 07-07 08:27 :00 No 1{tbl} 1 tablet, Oral, ONCE NOW, 1 dose, On Mon07/07/24 at 0400, Routine [facility] ondansetron (ZOFRAN (PF)) injection 4 mg 07-07 08:15: 00 07-07 08:26 :00 No 4mg 4 mg, Slow IV Push, ONCE, 1 dose, On Mon07/07/24 at 0315, ALEXA [facility] iopamidol (ISOVUE 370-500 mL) injection 70 mL 07-07 07:45: 00 07-07 07:45 :00 No [id number] 70mL 70 mL, Intravenou s, ONCE, 1 dose, On Mon07/07/24 at 0245, Routine [facility] ketorolac (TORADOL) injection 30 mg 07-07 06:30: 00 07-07 05:26 :00 No 30mg 30 mg, Slow IV Push, ONCE, 1 dose, On Mon07/07/24 at 0130, Routine [facility] FENTanyl (PF) (SUBLIMAZE) injection 25 mcg 07-07 06:00: 00 07-07 06:07 :00 No 25ug 25 mcg, Slow IV Push, ONCE, 1 dose, On Mon07/07/24 at 0100, STAT [facility] diphenhydrA MINE:lidoca ine 2% viscous:maa lox 1:1:1 (FIRST-MOUT HWASH BLM) oral suspension 15 mL 07-07 05:30: 00 07-07 05:26 :00 No 15mL 15 mL, Oral, ONCE, 1 dose, On Mon07/07/24 at 0030, Routine [facility] ondansetron (ZOFRAN (PF)) injection 4 mg 07-07 05:30: 00 07-07 05:26 :00 No 4mg 4 mg, Slow IV Push, ONCE, 1 dose, On Mon07/07/24 at 0030, [facility] proMETHazin e 25 mg tablet 07-07 00:00: 00 Yes [id number] 25mg Take 1 tablet by mouth every 6 (six) hours as needed for Nausea and Vomiting (N/V) or N/V unresponsi ve to Ondansetro n. [facility] ibuprofen (IBU) tablet 600 mg 07-27 01:30: 00 07-27 01:46 :00 No 600mg 600 mg, Oral, ONCE, 1 dose, On Mon07/26/23 at 2030, [facility] HYDROcodone -acetaminop hen (NORCO 5) 5-325 mg tablet 1 tablet 07-27 01:30: 00 07-27 01:46 :00 No 1{tbl} 1 tablet, Oral, ONCE, 1 dose, On Mon07/26/23 at 2030, [facility] diphenhydrA MINE (BENADRYL) tablet 25 mg 05-17 06:15: 00 05-17 06:13 :00 No 25mg 25 mg, Oral, ONCE, 1 dose, On Mon05/17/23 at 0115, [facility] predniSONE (DELTASONE) tablet 20 mg 05-17 06:15: 00 05-17 06:12 :00 No 20mg 20 mg, Oral, ONCE, 1 dose, On Mon05/17/23 at 0115, [facility] predniSONE 20 mg tablet 05-17 00:00: 00 Yes [id number] TAKE ONE TABLET BY MOUTH TWICE A DAY [facility] aspirin tablet 325 mg 03-22 23:00: 00 03-22 22:17 :00 No 325mg 325 mg, Oral, ONCE, 1 dose, On Mon03/22/23 at 1800, [facility] acetaminoph en (TYLENOL) tablet 1,000 mg 03-22 23:00: 00 03-22 22:17 :00 No 1000mg 1,000 mg, Oral, ONCE, 1 dose, On Mon03/22/23 at 1800, [facility] amoxicillin -clavulanat e (AUGMENTIN) 875-125 mg per tablet 1 tablet 12-17 06:00: 00 12-17 05:49 :00 No 1{tbl} 1 tablet, Oral, ONCE, 1 dose, On Mon12/17/22 at 0000, Routine
Reason for Anti-Infec tive: Documented Infection< br>Documen sven Infection Site: Skin / Soft Tissue
Duration of Therapy: 10 days [facility] ibuprofen (IBU) tablet 600 mg 12-17 05:15: 00 12-17 05:49 :00 No 600mg 600 mg, Oral, ONCE, 1 dose, On Mon12/16/22 at 2315, [facility] amoxicillin -clavulanat e 875-125 mg per tablet 12-16 00:00: 00 Yes [id number] 1{tbl} Take 1 tablet by mouth every 12 (twelve) hours. [facility] ibuprofen 600 mg tablet 12-16 00:00: 00 Yes [id number] 600mg Take 1 tablet by mouth every 6 (six) hours as needed for Pain (scale 4-6). [facility] proMETHazin e (PHENERGAN) 12.5 mg in NaCl 0.9% (NS) 50 mL IV piggyback 2021-11 22:15: 00 09-18 22:24 :00 No 12.5mg 12.5 mg, IV Piggyback, ONCE, 1 dose, On Mon09/18/22 at 1615, [facility] NaCl 0.9% (NS) bolus infusion 1,000 mL 2021-11 20:30: 00 09-18 21:54 :00 No 1000mL at 999 mL/hr, 1,000 mL, IV Infusion, ONCE, 1 dose, On Mon09/18/22 at 1430, [facility] meclizine (TRAVEL-EAS E (MECLIZINE) ) tablet 25 mg 2021-11 19:45: 00 09-18 19:50 :00 No 25mg 25 mg, Oral, ONCE, 1 dose, On Mon09/18/22 at 1345, [facility] proMETHazin e (PHENERGAN) 12.5 mg in NaCl 0.9% (NS) 50 mL IV piggyback 2021-11 19:45: 00 09-18 19:53 :00 No 12.5mg 12.5 mg, IV Piggyback, ONCE, 1 dose, On Mon09/18/22 at 1345, [facility] meclizine 25 mg tablet 2021-11 00:00: 00 Yes [id number] 25mg Take 1 tablet by mouth every 6 (six) hours as needed for Dizziness or Nausea. [facility] proMETHazin e 25 mg tablet 2021-11 00:00: 00 Yes [id number] 25mg Take 1 tablet by mouth every 6 (six) hours as needed (NAUSEA AND/OR DIZZINESS) . [facility] meloxicam 7.5 mg tablet 07-27 00:00: 00 Yes [id number] 7.5mg Take 1 tablet by mouth 2 (two) times daily with meals as needed for Pain (scale 7-10) or Pain (scale 4-6). [facility] cyclobenzap rine 10 mg tablet 07-27 00:00: 00 Yes [id number] 10mg Take 1 tablet by mouth 2 (two) times daily as needed (knee and heel pain). [facility] SERTraline 100 mg tablet 06-15 00:00: 00 Yes [id number] 100mg Take 1 tablet by mouth in the morning. [facility] hydrOXYzine 25 mg tablet 06-15 00:00: 00 Yes [id number] 25mg Take 1 tablet by mouth every 6 (six) hours as needed for Anxiety. [facility] ondansetron 4 mg disintegrat ing tablet 06-11 00:00: 00 Yes [id number] 4mg Take 1 tablet by mouth every 8 (eight) hours as needed for Nausea and Vomiting (N/V). [facility] ibuprofen 800 mg tablet 06-11 00:00: 00 Yes [id number] 800mg Take 1 tablet by mouth in the morning and 1 tablet at noon and 1 tablet in the evening. Take with meals. [facility] ALBUTEROL 2.5 mg /3 mL (0.083 %) nebulizer solution 311 00:00: 00 Yes [id number] USE 3 ML IN NEBULIZER EVERY 4 HOURS NEEDED FOR WHEEZING FOR SHORTNESS OF BREATH [facility] tamsulosin 0.4 mg 24 hr capsule 2020-11 0 00:00: 00 06-15 00:00 :00 No [id number] .4mg Take 1 capsule by mouth at bedtime. [facility] ketorolac 10 mg tablet 2020-11 0- 00:00: 00 06-15 00:00 :00 No [id number] 10mg Take 1 tablet by mouth every 6 (six) hours as needed for Pain (scale 4-6). [facility] ondansetron (ZOFRAN ODT) 4 mg disintegrat ing tablet 2020-11 0 00:00: 00 06-15 00:00 :00 No [id number] 4mg Take 1 tablet by mouth every 8 (eight) hours as needed for Nausea and Vomiting (N/V). [facility] ciprofloxac in HCl 250 mg tablet 2020-11 0 00:00: 06-15 00:00 :00 No [id number] 250mg Take 1 tablet by mouth 2 (two) times daily. [facility] acetaminoph en-codeine 300-30 mg tablet 07-08 00:00: 00 06-15 00:00 :00 No [id number] 1{tbl} Take 1-2 tablets by mouth every 6 (six) hours as needed for Pain (scale 7-10). Indication s: acute pain [facility] ipratropium 0.02 % nebulizer solution 07-08 00:00: 00 06-15 00:00 :00 No [id number] .5mg Inhale 2.5 mL every 4 (four) hours as needed for Wheezing or Shortness of Breath. [facility] bromphenira mine-pseudo ephedrine-D M (BROMFED DM) 2-30-10 mg/5 mL syrup 07-08 00:00: 06-15 00:00 :00 No [id number] 5mL Take 5 mL by mouth 4 (four) times daily as needed for Cough. [facility] amoxicillin -clavulanat e (AUGMENTIN) 875-125 mg per tablet 07-08 00:00: 06-15 00:00 :00 No [id number] 1{tbl} Take 1 tablet by mouth 2 (two) times daily. [facility] [employer] Kit 07-08 00:00: 00 06-15 00:00 :00 No [id number] J40: Brochitis - Dispense # 1 James Respironic s (okay for alternativ e brand) for nebulizer treatment [facility] albuterol 90 mcg/actuati on inhaler 07-02 00:00: 00 Yes [id number] 2{puff} Inhale 2 Puffs every 4 (four) hours as needed for Wheezing or Shortness of Breath. [facility] predniSONE 20 mg tablet 07-02 00:00: 00 06-15 00:00 :00 No [id number] 60mg Take 3 tablets by mouth every morning. [facility] omeprazole 40 mg capsule 03-19 00:00: 00 Yes [id number] 40mg Take 1 capsule by mouth daily. [facility] famotidine 20 mg tablet 03-19 00:00: 00 06-15 00:00 :00 No [id number] 20mg Take 1 tablet by mouth 2 (two) times daily. [facility] tamsulosin (FLOMAX) 0.4 mg 24 hr capsule 03-19 00:00: 00 08-06 00:00 :00 No [id number] .4mg Take 1 capsule by mouth daily. [facility] acetaminoph en (TYLENOL) 325 mg tablet 12-15 00:00: 00 Yes [id number] 650mg Take 2 tablets by mouth every 6 (six) hours as needed for Pain (scale 1-3) or Alternate with ibuprofen for pain scale 4-6. [facility] dicyclomine (BENTYL) 10 mg capsule 12-15 00:00: 00 Yes [id number] 10mg Take 1 capsule by mouth 4 (four) times daily. [facility] acetaminoph en-codeine 300-30 mg tablet 12-15 00:00: 00 07-08 00:00 :00 No [id number] 1{tbl} Take 1-2 tablets by mouth every 6 (six) hours as needed for Pain (scale 7-10). Indication s: acute pain [facility] ibuprofen 800 mg tablet 12-15 00:00: 00 07-08 00:00 :00 No [id number] 800mg Take 1 tablet by mouth every 8 (eight) hours as needed for Pain (scale 4-6). [facility] ibuprofen 800 mg tablet - 00:00: 00 07-08 00:00 :00 No [id number] 800mg Take 1 tablet by mouth every 8 (eight) hours as needed for Pain (scale 4-6). [facility] famotidine 20 mg tablet 2019-11 00:00: 00 03-19 00:00 :00 No [id number] 20mg Take 1 tablet by mouth 2 (two) times daily. [facility] omeprazole 20 mg capsule 2019-11 00:00: 00 03-19 00:00 :00 No [id number] 20mg Take 1 capsule by mouth daily. [facility] medroxyPROG ESTERone (DEPO-PROVE RA) injection 150 mg 07-06 20:45: 00 03-19 18:43 :00 No [id number] 150mg [facility] Immunizations Ordered Immunization Name Filled Immunization Name Date Status Comments Source SARS-COV-2 COVID-19 PFIZER VACCINE 2020-11-25 00:00:00 Completed [facility] SARS-COV-2 COVID-19 PFIZER VACCINE 2020-11-25 00:00:00 Completed [facility] SARS-COV-2 COVID-19 PFIZER VACCINE 2020-11-25 00:00:00 Completed [facility] SARS-COV-2 COVID-19 PFIZER VACCINE 2020-11-25 00:00:00 Completed [facility] SARS-COV-2 COVID-19 PFIZER VACCINE 2020-11-25 00:00:00 Completed [facility] SARS-COV-2 COVID-19 PFIZER VACCINE 2020-11-25 00:00:00 Completed [facility] SARS-COV-2 COVID-19 PFIZER VACCINE 2020-11-25 00:00:00 Completed [facility] Pneumococcal Polysaccharide, PPSV23 (PNEUMOVAX) 2020-09-16 00:00:00 Completed [facility] Pneumococcal Polysaccharide, PPSV23 (PNEUMOVAX) 2020-09-16 00:00:00 Completed [facility] Pneumococcal Polysaccharide, PPSV23 (PNEUMOVAX) 2020-09-16 00:00:00 Completed [facility] Pneumococcal Polysaccharide, PPSV23 (PNEUMOVAX) 2020-09-16 00:00:00 Completed [facility] Pneumococcal Polysaccharide, PPSV23 (PNEUMOVAX) 2020-09-16 00:00:00 Completed [facility] Pneumococcal Polysaccharide, PPSV23 (PNEUMOVAX) 2020-09-16 00:00:00 Completed [facility] Pneumococcal Polysaccharide, PPSV23 (PNEUMOVAX) 2020-09-16 00:00:00 Completed [facility] Influenza High Dose 2020-08-16 00:00:00 Completed [facility] Influenza High Dose 2020-08-16 00:00:00 Completed [facility] Influenza High Dose 2020-08-16 00:00:00 Completed [facility] Influenza High Dose 2020-08-16 00:00:00 Completed [facility] Influenza High Dose 2020-08-16 00:00:00 Completed [facility] Influenza High Dose 2020-08-16 00:00:00 Completed [facility] Influenza High Dose 2020-08-16 00:00:00 Completed [facility] TDAP 2015-03-25 00:00:00 Completed [facility] TDAP 2015-03-25 00:00:00 Completed [facility] TDAP 2015-03-25 00:00:00 Completed [facility] TDAP 2015-03-25 00:00:00 Completed [facility] TDAP 2015-03-25 00:00:00 Completed [facility] TDAP 2015-03-25 00:00:00 Completed [facility] [facility] TDAP 2015-03-25 00:00:00 Completed [facility] TDAP Unknown Completed [facility] Influenza High Dose Unknown Completed [facility] Pneumococcal Polysaccharide, PPSV23 (PNEUMOVAX) Unknown Completed [facility] SARS-COV-2 COVID-19 PFIZER VACCINE Unknown Completed [facility] TDAP Unknown Completed [facility] Influenza High Dose Unknown Completed [facility] Pneumococcal Polysaccharide, PPSV23 (PNEUMOVAX) Unknown Completed [facility] SARS-COV-2 COVID-19 PFIZER VACCINE Unknown Completed [facility] TDAP Unknown Completed [facility] Influenza High Dose Unknown Completed [facility] Pneumococcal Polysaccharide, PPSV23 (PNEUMOVAX) Unknown Completed [facility] SARS-COV-2 COVID-19 PFIZER VACCINE Unknown Completed [facility] TDAP Unknown Completed [facility] Influenza High Dose Unknown Completed [facility] Pneumococcal Polysaccharide, PPSV23 (PNEUMOVAX) Unknown Completed [facility] SARS-COV-2 COVID-19 PFIZER VACCINE Unknown Completed [facility] TDAP Unknown Completed [facility] TDAP Unknown Completed [facility] Influenza High Dose Unknown Completed [facility] Pneumococcal Polysaccharide, PPSV23 (PNEUMOVAX) Unknown Completed [facility] SARS-COV-2 COVID-19 PFIZER VACCINE Unknown Completed [facility] TDAP Unknown Completed [facility] Influenza High Dose Unknown Completed [facility] Pneumococcal Polysaccharide, PPSV23 (PNEUMOVAX) Unknown Completed [facility] SARS-COV-2 COVID-19 PFIZER VACCINE Unknown Completed [facility] Vital Signs Vital Name Observation Time Observation Value Comments S ource Heart rate 2024-07-07 08:27:00 68 /min [facility] Body temperature 2024-07-07 08:27:00 36.5 Amy [facility] Respiratory rate 2024-07-07 08:27:00 12 /min [facility] Oxygen saturation in Arterial blood by Pulse oximetry 2024-07-07 08:27:00 96 /min [facility] Systolic blood pressure 2024-07-07 08:00:00 109 mm[Hg] [facility] Diastolic blood pressure 2024-07-07 08:00:00 75 mm[Hg] [facility] Body height 2024-07-07 04:28:00 157.5 cm [facility] Body weight 2024-07-07 04:28:00 69.627 kg [facility] BMI 2024-07-07 04:28:00 28.08 kg/m2 [facility] Systolic blood pressure 2023-10-12 05:08:00 115 mm[Hg] [facility] Diastolic blood pressure 2023-10-12 05:08:00 78 mm[Hg] [facility] Heart rate 2023-10-12 05:08:00 99 /min [facility] Body temperature 2023-10-12 05:08:00 37.39 Amy [facility] Respiratory rate 2023-10-12 05:08:00 20 /min [facility] Body height 2023-10-12 05:08:[address] [facility] 2023-10-12 05:08:00 68.176 kg [facility] BMI 2023-10-12 05:08:00 27.49 kg/m2 [facility] Oxygen saturation in Arterial blood by Pulse oximetry 2023-10-12 05:08:00 100 /min [facility] Systolic blood pressure 2023-07-27 00:07:00 113 mm[Hg] [facility] Diastolic blood pressure 2023-07-27 00:07:00 75 mm[Hg] [facility] Heart rate 2023-07-27 00:07:00 102 /min [facility] Body temperature 2023-07-27 00:07:00 37 Amy [facility] Respiratory rate 2023-07-27 00:07:00 16 /min [facility] Body height 2023-07-27 00:07:00 157.5 cm [facility] Body weight 2023-07-27 00:07:00 65.772 kg [facility] BMI 2023-07-27 00:07:00 26.52 kg/m2 [facility] Oxygen saturation in Arterial blood by Pulse oximetry 2023-07-27 00:07:00 98 /min [facility] Systolic blood pressure 2023-05-17 05:26:00 127 mm[Hg] [facility] Diastolic blood pressure 2023-05-17 05:26:00 89 mm[Hg] [facility] Heart rate 2023-05-17 05:26:00 75 /min [facility] Body temperature 2023-05-17 05:26:00 37 Amy [facility] Respiratory rate 2023-05-17 05:26:00 18 /min [facility] Body height 2023-05-17 05:26:[address] [facility] Body weight 2023-05-17 05:26:00 68.493 kg [facility] BMI 2023-05-17 05:26:00 27.62 kg/m2 [facility] Oxygen saturation in Arterial blood by Pulse oximetry 2023-05-17 05:26:00 97 /min [facility] Systolic blood pressure 2023-03-22 22:00:00 108 mm[Hg] [facility] Diastolic blood pressure 2023-03-22 22:00:00 66 mm[Hg] [facility] Heart rate 2023-03-22 22:00:00 99 /min [facility] Respiratory rate 2023-03-22 22:00:00 21 /min [facility] Oxygen saturation in Arterial blood by Pulse oximetry 2023-03-22 22:00:00 95 /min [facility] Body temperature 2023-03-22 21:41:00 37 Amy [facility] Body height 2023-03-22 21:41:00 157.5 cm [facility] Body weight 2023-03-22 21:41:00 65.772 kg [facility] BMI 2023-03-22 21:41:00 26.52 kg/m2 [facility] Systolic blood pressure 2022-12-17 04:46:00 120 mm[Hg] [facility] Diastolic blood pressure 2022-12-17 04:46:00 82 mm[Hg] [facility] Heart rate 2022-12-17 04:46:00 91 /min [facility] Body temperature 2022-12-17 04:46:00 36.89 Amy [facility] Respiratory rate 2022-12-17 04:46:00 18 /min [facility] Body height 2022-12-17 04:46:00 157.5 cm [facility] Body weight 2022-12-17 04:46:00 65.772 kg [facility] BMI 2022-12-17 04:46:00 26.52 kg/m2 [facility] Oxygen saturation in Arterial blood by Pulse oximetry 2022-12-17 04:46:00 97 /min [facility] Systolic blood pressure 2022-09-18 23:00:00 113 mm[Hg] [facility] Diastolic blood pressure 2022-09-18 23:00:00 73 mm[Hg] [facility] Heart rate 2022-09-18 23:00:00 68 /min [facility] Respiratory rate 2022-09-18 23:00:00 16 /min [facility] Oxygen saturation in Arterial blood by Pulse oximetry 2022-09-18 23:00:00 98 /min [facility] Body temperature 2022-09-18 18:49:00 36.83 Amy [facility] Body weight 2022-09-18 18:49:00 65.772 kg [facility] BMI 2022-09-18 18:49:00 26.52 kg/m2 [facility] Systolic blood pressure 2022-07-27 18:15:00 113 mm[Hg] [facility] Diastolic blood pressure 2022-07-27 18:15:00 77 mm[Hg] [facility] Heart rate 2022-07-27 18:15:00 79 /min [facility] Body temperature 2022-07-27 18:15:00 35.89 Amy [facility] Respiratory rate 2022-07-27 18:15:00 18 /min [facility] Body height 2022-07-27 18:15:00 157.5 cm [facility] Body weight 2022-07-27 18:15:00 66.316 kg [facility] BMI 2022-07-27 18:15:00 26.74 kg/m2 [facility] Oxygen saturation in Arterial blood by Pulse oximetry 2022-07-27 18:15:00 98 /min [facility] Systolic blood pressure 2022-06-15 18:30:00 117 mm[Hg] [facility] Diastolic blood pressure 2022-06-15 18:30:00 76 mm[Hg] [facility] Heart rate 2022-06-15 18:30:00 72 /min [facility] Body temperature 2022-06-15 18:30:00 36.56 Amy [facility] Respiratory rate 2022-06-15 18:30:00 18 /min [facility] Body height 2022-06-15 18:30:00 157.5 cm [facility] Body weight 2022-06-15 18:30:00 68.493 kg [facility] BMI 2022-06-15 18:30:00 27.62 kg/m2 [facility] Oxygen saturation in Arterial blood by Pulse oximetry 2022-06-15 18:30:00 99 /min [place] [facility] Procedures Procedure Date / Time Performed Performing Clinician Source TROPONIN I 2024-07-07 07:25:00 Lynn Nava [facility] CT CHEST PULMONARY ANGIOGRAM 2024-07-07 06:50:46 Lynn Nava [facility] D-DIMER 2024-07-07 05:25:00 Lynn Nava [facility] LIPASE 2024-07-07 04:58:00 Lynn Nava [facility] TROPONIN I 2024-07-07 04:58:00 Lynn Nava [facility] COMP. METABOLIC PANEL (31476) 2024-07-07 04:58:00 Lynn Nava [facility] CBC WITH DIFF 2024-07-07 04:58:00 Lynn Nava [facility] ASSIGNMENT OF BENEFITS 2023-10-12 06:05:31 Docto r Unassigned, [facility] RAPID STREP SCREEN FOR GROUP A 2023-10-12 05:12:00 Ratna Mckeon [facility] RAPID INFLUENZA A/B 2023-10-12 05:12:00 Daysi Mckeon [facility] COVID-19 (ID NOW RAPID TESTING) 2023-10-12 05:12:00 Ratna Mckeon [facility] CONSENT/REFUSAL FOR DIAGNOSIS AND TREATMENT 2023-10-12 04:57:22 Doctor Unassigned, [facility] [facility] ASSIGNMENT OF BENEFITS 2023-07-27 01:59:01 Docto r Unassigned, [facility] [facility] NOTICE OF PRIVACY PRACTICES 2023-07-26 23:37:34 Doctor Unassigned, [facility] [facility] CONSENT/REFUSAL FOR DIAGNOSIS AND TREATMENT 2023-07-26 23:35:24 Doctor Unassigned, [place] [facility] ASSIGNMENT OF BENEFITS 2023-05-17 06:09:20 Docto r Unassigned, [facility] [facility] CONSENT/REFUSAL FOR DIAGNOSIS AND TREATMENT 2023-05-17 05:19:18 Doctor Unassigned, [facility] [facility] EKG-12 LEAD 2023-03-22 23:22:16 Abdon Buitrago [facility] TROPONIN I 2023-03-22 21:58:00 Abdon Buitrago [facility] CONSENT/REFUSAL FOR DIAGNOSIS AND TREATMENT 2023-03-22 21:46:08 Doctor Unassigned, [place] [facility] CONSENT/REFUSAL FOR DIAGNOSIS AND TREATMENT 2022-12-17 04:37:47 Doctor Unassigned, [facility] [facility] COMP. METABOLIC PANEL ([id number]) 2022-09-18 20:49:00 Audra Wells [facility] CBC WITH DIFF 2022-09-18 19:52:00 Audra Wells [facility] CONSENT/REFUSAL FOR DIAGNOSIS AND TREATMENT 2022-09-18 18:33:51 Doctor Unassigned, [facility] [facility] Encounters Start Date/Time End Date/Time Encounter Type Admission Type Attending Clinicians Care Facility Care Department Encounter ID Source 2021-09-07 03:00:13 Emergency [facility] [id number] [facility] 2021-09-06 18:41:24 Emergency [facility] [id number] [facility] 2021-09-06 03:32:49 Outpatient R SONYA BLACKWELL [facility] ABRA[facility] [id number] [facility] 2021 22:40:21 Emergency [facility] [id number] [facility] 2021 15:33:57 Emergency [facility] [id number] [facility] 2021-09-03 16:29:08 Emergency [facility] [id number] [facility] 2021-09-03 16:26:28 Emergency [facility] [id number] [facility] 2021-09-03 13:13:02 Emergency [facility] [id number] [facility] 2021-09-03 06:30:27 Emergency [facility] [id number] [facility] 2024-07-09 16:00:00 2024-07-09 16:00:00 Emergency X YAJAIRA FLYNN [facility] E[facility] [id number] [facility] 2024-07-06 23:32:00 2024-07-07 03:47:00 Emergency X CLARITZAEDENANTHONYLYNN WAKILI [facility] E[facility] [id number] [facility] 2024-07-06 23:32:00 2024-07-07 03:47:00 Emergency Lynn Nava S [facility] 1.2.840.114 350.1.13.10 4.2.7.2.686 [id number] [facility] 2023-10-11 23:15:00 2023-10-12 00:20:00 Emergency X RATNA MCKEON [facility] E[facility] [id number] [facility] 2023-10-11 23:15:00 2023-10-12 00:20:00 Emergency AndriyRamya perezine [facility] .2.840.114 350.1.13.10 4.2.7.2.686 [id number] [facility] 2023-07-28 13:30:00 2023-07-28 13:30:00 Outpatient CONOR HICKS OGECHUKWU [facility] [id number] [facility] 2023-07-26 19:09:00 2023-07-26 21:44:00 Emergency X HUSAM KIRK [facility] E[facility] [id number] [facility] 2023-07-26 19:09:00 2023-07-26 21:44:00 Emergency Husam Kirk C [facility] 1.2.840.114 350.1.13.10 4.2.7.2.686 [id number] [facility] 2023-05-17 00:27:00 2023-05-17 01:31:00 Emergency X LYNN NAVA [facility] [id number] [facility] 2023-05-17 00:27:00 2023-05-17 01:31:00 Emergency Lynn Nava [facility] 1.2.840.114 350.1.13.10 4.2.7.2.686 [id number] [facility] 2023-03-22 16:42:00 2023-03-22 18:28:00 Emergency X [facility] [id number] [facility] 2023-03-22 16:42:00 2023-03-22 18:28:00 [facility] 1.2.840.114 350.1.13.10 4.2.7.2.686 [id number] [facility] 2022-12-16 22:44:00 2022-12-16 23:53:00 Emergency X MIKKI, K [facility] [id number] [facility] 2022-12-16 22:44:00 2022-12-16 23:53:00 Emergency Rosalva Kaye [facility] 1.2.840.114 350.1.13.10 4.2.7.2.686 [id number] [facility] 2022-12-06 11:30:00 2022-12-06 11:30:00 Outpatient R MONTYCONOR DALAL OGECHUKWU [facility] [id number] [facility] 2022-11-25 13:30:00 2022-11-25 13:30:00 Outpatient R CONOR MILLAN [facility]GECHUKWU [facility] [id number] [facility] 2022-09-18 12:49:00 2022-09-18 17:28:00 Emergency X AUDRA WELLS [facility] E[facility] [id number] [facility] 2022-09-18 12:49:00 2022-09-18 17:28:00 Emergency Audra Wells Lee [facility] 1..840.114 350.1.13.10 4.2.7.2.686 [id number] [facility] 2022-07-27 13:00:00 2022-07-27 14:06:12 Outpatient R CONOR MILLAN OGECHUKWU [facility] [id number] [facility] 2022-07-27 13:00:00 2022-07-27 14:06:12 Office Visit Conor Millan [facility] 1.2.840.114 350.1.13.10 4.2.7.2.686 [id number] [facility] 2022-06-15 13:00:00 2022-06-15 14:25:54 Outpatient R CONOR MILLAN OGECHUKWU [facility] [id number] [facility] 2022-06-15 13:00:00 2022-06-15 14:25:54 Office Visit Conor Millan [facility] 1.2.840.114 350.1.13.10 4.2.7.2.686 [id number] [facility] 2022-06-15 09:00:00 2022-06-15 09:00:00 Outpatient R CONOR MILLAN OGECHUKWU [facility] [id number] [facility] 2022-06-11 20:17:00 2022-06-11 22:51:00 Emergency X HENRIQUE BIANCHI [facility] E[facility] [id number] [facility] 2022-06-11 20:17:00 2022-06-11 22:51:00 Emergency Henrique Bianchi T [facility] 1..840.114 350.1.13.10 4.2.7.2.686 [id number] [facility] 2022-06-09 08:11:00 2022-06-09 09:45:00 Emergency X GRAEME FLORES [facility] [id number] [facility] 2022-06-09 08:11:00 2022-06-09 09:45:00 Emergency Graeme Flores O [facility] 1..840.114 350.1.13.10 4.2.7.2.686 [id number] [facility] 2022-01-10 00:00:00 2022-01-10 00:00:00 [facility] 1..840.114 350.1.13.10 4.2.7.2.686 [id number] [facility] 2021-09-20 14:30:00 2021-09-20 14:30:00 Outpatient R ANTHONY MARTELL [facility] [id number] [facility] 2021-09-08 10:00:00 2021-09-08 10:00:00 Outpatient R [facility] [id number] [facility] 2021-08-06 09:47:00 2021-08-06 13:40:00 Emergency Maryjo Benoit [facility] 1..114 350.1.13.10 4.2.7.2.686 [id number] [facility] 2021-08-03 13:30:00 2021-08-03 13:30:00 Outpatient R WEN NG [facility] [id number] [facility] 2021-07-29 15:30:00 2021-07-29 15:30:00 Outpatient R WEN NG [facility] [id number] [facility] 2021-07-27 13:00:00 2021-07-27 13:00:00 Outpatient R TARAH CUI [facility] [id number] [facility] 2021-07-26 00:00:00 2021-07-26 00:00:00 Telephone Hernandez Wen [facility] 1.114 350.1.13.10 4.2.7.2.686 [id number] [facility] 2021-07-13 00:00:00 2021-07-13 00:00:00 Outpatient R HUSAM SMITH [facility] [id number] [facility] 2021-07-12 00:00:00 2021-07-12 00:00:00 Patient Secure Msg Doctor Unassigned, [facility] [facility] 1.114 350.1.13.10 4.2.7.2.686 [id number] [facility] 2021-07-08 14:39:16 2021-07-08 23:59:00 Hospital Encounter Tarah Cui [facility] 1..114 350.1.13.10 4.2.7.2.686 [id number] [facility] 2021-07-08 14:39:16 2021-07-08 23:59:00 Hospital Encounter Tarah Cui [facility] 1.2.840.114 350.1.13.10 4.2.7.2.686 [id number] [facility] 2021-07-08 13:23:48 2021-07-08 14:28:41 [facility] 1.2.840.114 350.1.13.10 4.2.7.2.686 [id number] [facility] 2021-07-08 13:40:00 2021-07-08 13:40:00 Outpatient R TARAH CUI [facility] [id number] [facility] 2021-07-08 00:00:00 2021-07-08 00:00:00 Nurse Triage [facility] 1.2.840.114 350.1.13.10 4.2.7.2.686 [id number] [facility] 2021-07-08 00:00:00 2021-07-08 00:00:00 Nurse Triage [facility] 1.2.840.114 350.1.13.10 4.2.7.2.686 [id number] [facility] 2021-07-07 10:34:16 2021-07-07 12:04:12 Office Visit Husam Smith [facility] 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 [facility] 1.2.840.114 350.1.13.10 4.2.7.2.686 [id number] [facility] 2021-07-07 10:34:16 2021-07-07 12:04:12 Office Visit Husam Smith [facility] 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 [facility] 1.2.840.114 350.1.13.10 4.2.7.2.686 [id number] [facility] 2021-07-07 10:30:00 2021-07-07 10:30:00 Outpatient R HUSAM SMITH [facility] [id number] [facility] 2021-07-02 17:19:00 2021-07-02 19:22:00 Emergency Blaine Stark [facility] 1.2.840.114 350.1.13.10 4.2.7.2.686 [id number] [facility] 2021-07-02 17:19:00 2021-07-02 19:22:00 Emergency Blaine Stark [facility] 1.2840.114 350.1.13.10 4.2.7.2.686 [id number] [facility] 2021-07-02 00:00:00 2021-07-02 00:00:00 Outpatient R TARAH CUI [facility] [id number] [facility] 2021-06-15 16:00:00 2021-06-15 16:00:00 Outpatient R [facility] [id number] [facility] 2021-06-11 13:30:00 2021-06-11 13:30:00 Outpatient R [facility] [id number] [facility] 2021-06-10 00:00:00 2021-06-10 00:00:00 Letter (Out) Cesilia Bruno [facility] 1.2840.114 350.1.13.10 4.2.7.2.686 [id number] [facility] 2021-06-09 14:02:23 2021-06-09 14:45:42 Urgent Care Herbert Kerns [facility] 1.2840.114 350.1.13.10 4.2.7.2.686 [id number] [facility] 2021-06-09 13:40:00 2021-06-09 14:00:00 Urgent Care Luis F Herbert [facility] 1.84.114 350.1.13.10 4.2.7.2.686 [id number] [facility] 2021-06-09 13:40:00 2021-06-09 13:40:00 Outpatient R LUIS F HERBERT [facility] [id number] [facility] 2021-06-03 00:00:00 2021-06-03 00:00:00 Patient Secure Msg Jayshree [facility] DIONICIO[facility] 1.84.114 350.1.13.10 4.2.7.2.686 [id number] [facility] 2021-05-27 14:30:00 2021-05-27 14:30:00 Outpatient R JAYSHREE [facility] [id number] [facility] 2021-05-27 14:13:04 2021-05-27 14:28:04 Long Goods Drier Visit Pob[facility] 1.84.114 350.1.13.10 4.2.7.2.686 [id number] [facility] 2021-05-27 00:00:00 2021-05-27 00:00:00 Orders Only Doctor Unassigned, [facility] [facility] 1..114 350.1.13.10 4.2.7.2.686 [id number] [facility] 2021-05-17 15:22:35 2021-05-17 15:52:35 Office Visit Jayshree [facility] 1.84.114 350.1.13.10 4.2.7.2.686 [id number] [facility] 2021-05-17 15:30:00 2021-05-17 15:30:00 Outpatient R ANTHONY MARTELL [facility] [id number] [facility] 2021-05-17 14:30:00 2021-05-17 14:30:00 [id number] 2021-05-07 09:45:00 2021-05-07 09:45:00 Outpatient R SONYA BLACKWELL [facility] [id number] [facility] 2021-04-29 00:00:00 2021-04-29 00:00:00 Prep For Surgery Irina Archer [facility] 1.84.114 350.1.13.10 4.2.7.2.686 [id number] [facility] 2021-04-23 19:30:00 2021-04-23 19:30:00 Outpatient R LIBBY FISHER STRAHIL [facility] [id number] [facility] 2021-04-23 14:59:30 2021-04-23 17:29:30 Long Goods Drier Visit 1, [facility] Sleep Lab Bed Libby [facility] 1..114 350.1.13.10 4.2.7.2.686 [id number] [facility] 2021-04-23 00:00:00 2021-04-23 00:00:00 Telephone Irina Archer [facility] 1.84.114 350.1.13.10 4.2.7.2.686 [id number] [facility] 2021-04-23 00:00:00 2021-04-23 00:00:00 Orders Only Doctor Unassigned, [place] [facility] 1..114 350.1.13.10 4.2.7.2.686 [id number] [facility] 2021-04-15 12:52:17 2021-04-15 13:44:49 Office Visit Sonya Blackwell [facility] Building 1.284.114 350.1.13.10 4.2.7.2.686 [id number] [facility] 2021-04-15 13:00:00 2021-04-15 13:00:00 Outpatient R SONYA BLACKWELL [facility] [id number] [facility] 2021-04-15 00:00:00 2021-04-15 00:00:00 Orders Only Doctor Unassigned, [place] [facility] 1.114 350.1.13.10 4.2.7.2.686 [id number] [facility] 2021-03-24 13:24:15 2021-03-24 13:54:15 Office Visit Libby Fisher [facility] 1.84.114 350.1.13.10 4.2.7.2.686 [id number] [facility] 2021-03-24 13:30:00 2021-03-24 13:30:00 Outpatient R LIBBY FISHER STRAHIL [facility] [id number] [facility] 2021-03-19 14:35:06 2021-03-19 15:18:03 Office Visit Tarah Cui [facility] 1.84.114 350.1.13.10 4.2.7.2.686 [id number] [facility] 2021-03-19 13:22:14 2021-03-19 13:41:51 Nurse Visit Visit, Ang-Rmchp Nurse Husam Smith [facility] 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 1.2.840.114 350.1.13.10 4.2.7.2.686 [id number] [facility] 2021-03-19 13:30:00 2021-03-19 13:30:00 Outpatient R [facility] [id number] [facility] 2021-03-06 19:30:00 2021-03-06 19:30:00 Outpatient R IVONHSANIQUE SEALSRONNI DEL VALLEARNEL SHANIQUESCEddie [facility] [id number] [facility] 2021-03-05 14:46:41 2021-03-05 17:16:41 Long Goods Drier Visit 1, [facility] Sleep Lab Bed Shanique Fisherronni [facility] 1.2840.114 350.1.13.10 4.2.7.2.686 [id number] [facility] 2021-03-03 13:59:41 2021-03-03 14:14:41 Laboratory Only Only, [facility] Test Irina Archer Manpreet [facility] 1.2840.114 350.1.13.10 4.2.7.2.686 [id number] [facility] 2021-03-03 14:00:00 2021-03-03 14:00:00 Outpatient R [facility] [id number] [facility] 2021-03-03 12:54:40 2021-03-03 13:42:28 Office Visit AditiIrina Manpreet [facility] Professio [facility] 1.2840.114 350.1.13.10 4.2.7.2.686 [id number] [facility] 2021-03-03 00:00:00 2021-03-03 00:00:00 Orders Only Doctor Unassigned, [place] [facility] 1.2840.114 350.1.13.10 4.2.7.2.686 [id number] [facility] 2021-02-12 00:00:00 2021-02-12 00:00:00 Patient Secure Anthony Mcfadden [facility]ILD[facility] 1.114 350.1.13.10 4.2.7.2.686 [id number] [facility] 2021-02-11 00:00:00 2021-02-11 00:00:00 Orders Only Doctor Unassigned, [place] [facility] 1.114 350.1.13.10 4.2.7.2.686 [id number] [facility] 2021-02-10 11:25:58 2021-02-10 11:56:38 Office Visit Libby Fisher [facility] 1..114 350.1.13.10 4.2.7.2.686 [id number] [facility] 2021-02-10 11:30:00 2021-02-10 11:30:00 Outpatient R LIBBY FISHER STRAHIL [facility] [id number] [facility] 2021-02-01 12:29:47 2021-02-01 13:35:23 Office Visit Wen Ng [facility] 1.114 350.1.13.10 4.2.7.2.686 [id number] [facility] 2021-02-01 13:00:00 2021-02-01 13:00:00 Outpatient R WEN NG [facility] [id number] [facility] 2021-02-01 10:41:05 2021-02-01 10:56:05 Long Goods Drier Visit Pob, Adc Lab Main LexaciaranTarah [facility] 1.84.114 350.1.13.10 4.2.7.2.686 [id number] [facility] 2021-01-26 13:00:00 2021-01-26 13:00:00 Outpatient R [facility] [id number] [facility] 2021-01-25 00:00:00 2021-01-25 00:00:00 Telephone Wen Ng [facility] 1..840.114 350.1.13.10 4.2.7.2.686 [id number] [facility] 2021-01-19 00:00:00 2021-01-19 00:00:00 Patient Secure Msg Jayshree [facility] 1.2.840.114 350.1.13.10 4.2.7.2.686 [id number] [facility] 2021-01-11 15:52:52 2021-01-11 16:07:52 Long Goods Drier Visit 2, Adc Lab Jayshree [facility] Building 1.2.840.114 350.1.13.10 4.2.7.2.686 [id number] [facility] 2021-01-11 14:31:31 2021-01-11 15:48:57 Office Visit Jayshree [facility] 1.2.840.114 350.1.13.10 4.2.7.2.686 [id number] [facility] 2021-01-11 14:30:00 2021-01-11 14:30:00 Outpatient R LOGANLUCEROJORGE [facility] [id number] [facility] 2020-12-25 13:25:19 2020-12-25 13:56:10 Nurse Visit Visit, Ang-Rmchp Nurse Husam Smith [facility] 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 1.2.840.114 350.1.13.10 4.2.7.2.686 [id number] [facility] 2020-12-25 13:00:00 2020-12-25 13:00:00 Outpatient R [facility] [id number] [facility] 2020-12-21 15:00:00 2020-12-21 15:00:00 Outpatient R [facility] [id number] [facility] 2020-12-15 18:31:00 2020-12-15 21:56:00 Emergency Diogo Ogden [facility] 1..840.114 350.1.13.10 4.2.7.2.686 [id number] [facility] 2020-12-15 15:37:46 2020-12-15 16:46:54 Office Visit Tarah Cui [facility] Building 1..840.114 350.1.13.10 4.2.7.2.686 [id number] [facility] 2020-12-15 15:20:00 2020-12-15 15:20:00 Outpatient R TARAH CUI [facility] [id number] [facility] 2020-11-30 13:00:00 2020-11-30 13:00:00 Outpatient R [facility] [id number] [facility] 2020-11-30 00:00:00 2020-11-30 00:00:00 Telephone Rose Spivey [facility] nal Building 1..840.114 350.1.13.10 4.2.7.2.686 [id number] [facility] 2020-11-19 13:07:22 2020-11-19 14:07:22 Ancillary Visit [facility] 1.2.840.114 350.1.13.10 4.2.7.2.686 [id number] [facility] 2020-11-18 14:06:54 2020-11-18 14:55:52 Office Visit Irina Archer [facility] 1..114 350.1.13.10 4.2.7.2.686 [id number] [facility] 2020-11-18 14:30:00 2020-11-18 14:30:00 Outpatient R IRINA ARCHER [facility] [id number] [facility] 2020-11-11 20:26:00 2020-11-11 22:14:00 Emergency Eri Woodall [facility] 1..114 350.1.13.10 4.2.7.2.686 [id number] [facility] 2020-11-11 00:00:00 2020-11-11 00:00:00 Orders Only Doctor Unassigned, [place] [facility] 1..114 350.1.13.10 4.2.7.2.686 [id number] [facility] 2020-11-09 12:44:30 2020-11-09 13:32:45 Office Visit Rey [facility] Resident Kusum Villeda [facility] 1..114 350.1.13.10 4.2.7.2.686 [id number] [facility] 2020-11-09 13:00:00 2020-11-09 13:00:00 Outpatient R KUSUM VILLEDA [facility] [id number] [facility] 2020-11-03 14:03:42 2020-11-03 14:43:42 Ancillary Visit Rose Spivey Craig L [facility] 1..114 350.1.13.10 4.2.7.2.686 [id number] [facility] 2020-10-28 14:15:32 2020-10-28 14:30:32 Long Goods Drier Visit Vtc-Lab Wen Ng [facility] 1.2840.114 350.1.13.10 4.2.7.2.686 [id number] [facility] 2020-10-28 13:27:25 2020-10-28 14:14:13 Office Visit [facility] 1.20.114 350.1.13.10 4.2.7.2.686 [id number] [facility] 2020-10-28 14:00:00 2020-10-28 14:00:[address] [facility] [id number] [facility] 2020-10-26 16:30:14 2020-10-26 16:51:26 Ancillary Visit Rose Spivey Craig L [facility] Building 1..114 350.1.13.10 4.2.7.2.686 [id number] [facility] 2020-10-19 13:34:39 2020-10-20 08:01:03 Ancillary Visit [facility]ive[facility] 1.2.114 350.1.13.10 4.2.7.2.686 [id number] [facility] 2020-10-13 13:40:02 2020-10-13 14:40:02 Ancillary Visit Rose Spivey Otto [facility] 1.2.114 350.1.13.10 4.2.7.2.686 [id number] [facility] 2020-10-13 13:40:00 2020-10-13 13:40:00 Outpatient R MARTÍN AMARO [facility] [id number] [facility] 2020-09-28 15:09:13 2020-09-28 15:41:20 Nurse Visit Visit, Vance-Rmchp Nurse Husam Smith [facility] 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 1.840.114 350.1.13.10 4.2.7.2.686 [id number] [facility] 2020-09-28 15:00:00 2020-09-28 15:00:00 Outpatient R [facility] [id number] [facility] 2020-09-22 12:31:07 2020-09-22 13:54:45 Office Visit Rey, [facility] Resident Martín Amaro W [facility] 1.840.114 350.1.13.10 4.2.7.2.686 [id number] [facility] 2020-09-22 13:00:00 2020-09-22 13:00:00 Outpatient R [facility] [id number] [facility] 2020-09-17 17:08:00 2020-09-17 23:59:00 Hospital Encounter Bryant Villavicencio BUILDING 1..840.114 350.1.13.10 4.2.7.2.686 [id number] [facility] 2020-09-17 00:00:00 2020-09-17 00:00:00 Outpatient R BRYANT VILLAVICENCIO [facility] ACO [id number] [facility] 2020-09-17 00:00:00 2020-09-17 00:00:00 Telephone Terence Goodman [facility] Esther Kelly [facility] Building 1.840.114 350.1.13.10 4.2.7.2.686 [id number] [facility] 2020-09-16 11:05:36 2020-09-16 23:59:00 Hospital Encounter Terence Goodman [facility] 1.2.840.114 350.1.13.10 4.2.7.2.686 [id number] [facility] 2020-09-16 15:37:49 2020-09-16 15:52:49 Long Goods Drier Visit 2, [facility] 1.2.840.114 350.1.13.10 4.2.7.2.686 [id number] [facility] 2020-09-16 13:53:45 2020-09-16 15:34:37 Office Visit [facility] 1.2.840.114 350.1.13.10 4.2.7.2.686 [id number] [facility] 2020-09-16 10:03:26 2020-09-16 11:04:00 Hospital Encounter Jaskaran Werner [facility] 1.2.840.114 350.1.13.10 4.2.7.2.686 [id number] [facility] 2020-09-16 00:00:00 2020-09-16 00:00:00 Outpatient R DEBBI [facility] [id number] [facility] 2020-09-12 08:06:08 2020-09-12 08:21:08 Long Goods Drier Visit Pob, Adc Lab Main Rex [facility] Building 1.2.840.114 350.1.13.10 4.2.7.2.686 [id number] [facility] 2020-09-12 08:00:00 2020-09-12 08:00:00 [id number] 2020-09-12 08:00:00 2020-09-12 08:00:00 Outpatient R TERENCE [facility] [id number] [facility] 2020-09-12 00:00:00 2020-09-12 00:00:00 Orders Only Doctor Unassigned, [place] [facility] 1..114 350.1.13.10 4.2.7.2.686 [id number] [facility] 2020-09-07 13:03:15 2020-09-07 13:40:31 Office Visit Rex [facility] 1..114 350.1.13.10 4.2.7.2.686 [id number] [facility] 2020-09-07 13:15:00 2020-09-07 13:15:00 Outpatient R REX [facility] [id number] [facility] 2020-09-01 13:36:17 2020-09-01 14:03:[address] [facility] Resident Jaskaran Werner [facility] 1.114 350.1.13.10 4.2.7.2.686 [id number] [facility] 2020-09-01 13:30:00 2020-09-01 13:30:00 Outpatient R DEBBI [facility] [id number] [facility] 2020-08-20 16:00:00 2020-08-20 16:00:00 Outpatient R REX [facility] [id number] [facility] 2020-08-14 14:00:00 2020-08-14 14:00:00 Outpatient R TARAH CUI [facility] [id number] [facility] 2020-08-05 12:42:02 2020-08-05 14:06:[address] [facility] Resident Yamilka Beard [facility] 1.114 350.1.13.10 4.2.7.2.686 [id number] [facility] 2020-08-05 13:00:00 2020-08-05 13:00:00 Outpatient R [facility] [id number] [facility] 2020-07-20 11:00:28 2020-07-20 11:32:40 Nurse Visit Nurse, [facility] Surgery Silverio Rex [facility] 1.2840.114 350.1.13.10 4.2.7.2.686 [id number] [facility] 2020-07-20 11:30:00 2020-07-20 11:30:00 Outpatient R REX [facility] [id number] [facility] 2020-07-20 00:00:00 2020-07-20 00:00:00 Orders Only Doctor Unassigned, [place] [facility] 1.2840.114 350.1.13.10 4.2.7.2.686 [id number] [facility] 2020-07-16 00:00:00 2020-07-16 00:00:00 Transition of Care Maris Prather [place] 1.2840.114 350.1.13.10 4.2.7.2.686 [id number] [facility] 2020-07-14 20:33:00 2020-07-15 19:15:00 Hospital Encounter Pankaj Whitt [facility] 1.2840.114 350.1.13.10 4.2.7.2.686 [id number] [facility] 2020-07-14 17:03:00 2020-07-14 19:11:00 Emergency Maryjo Benoit [facility] 1.2840.114 350.1.13.10 4.2.7.2.686 [id number] [facility] 2020-07-14 00:00:00 2020-07-14 00:00:00 Orders Only Doctor Unassigned, [place] [facility] 1..114 350.1.13.10 4.2.7.2.686 [id number] [facility] 2020-07-14 00:00:00 2020-07-14 00:00:[address] [facility] 1..114 350.1.13.10 4.2.7.2.686 [id number] [facility] 2020-07-06 14:31:23 2020-07-06 15:53:38 Office Visit Husam Smith [facility] 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 [facility] 1..114 350.1.13.10 4.2.7.2.686 [id number] [facility] 2020-07-06 15:30:00 2020-07-06 15:30:00 Outpatient R [facility] [id number] [facility] 2020-07-06 15:15:00 2020-07-06 15:15:00 Outpatient R HUSAM SMITH [facility] [id number] [facility] 2020-06-23 16:43:00 2020-06-23 18:37:00 Emergency Attila Vela [facility] 1.114 350.1.13.10 4.2.7.2.686 [id number] [facility] 2020-05-20 00:00:00 2020-05-20 00:00:00 Patient Secure Msg Doctor Unassigned, [place] 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 1.2.114 350.1.13.10 4.2.7.2.686 [id number] [facility] 2020-05-19 00:00:00 2020-05-19 00:00:00 Telephone Rosalva Kaye [facility] 1.2.840.114 350.1.13.10 4.2.7.2.686 [id number] [facility] 2020-05-18 18:08:14 2020-05-18 23:14:00 Emergency Rosalva Kaye [facility] 1.2.840.114 350.1.13.10 4.2.7.2.686 [id number] [facility] 2020-05-18 00:00:00 2020-05-18 00:00:00 Orders Only Doctor Unassigned, [place] [facility] 1.2.840.114 350.1.13.10 4.2.7.2.686 [id number] [facility] 2020-04-13 15:01:21 2020-04-13 15:16:21 Nurse Visit Visit, [facility] Marina Frank [facility] 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 [facility] 1.2.840.114 350.1.13.10 4.2.7.2.686 [id number] [facility] 2020-04-13 15:00:00 2020-04-13 15:00:00 Outpatient [facility] [id number] [facility] 2020-04-13 00:00:00 2020-04-13 00:00:00 Orders Only Doctor Unassigned, [place] [facility] 1.2.840.114 350.1.13.10 4.2.7.2.686 [id number] [facility] 2020-01-20 16:34:21 2020-01-20 16:52:54 Nurse Visit Visit, [facility] Lang Banda [facility] 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 [facility] 1.2.840.114 350.1.13.10 4.2.7.2.686 [id number] [facility] 2020-01-20 16:30:00 2020-01-20 16:30:00 Outpatient R LANG FAUSTIN [facility] [id number] [facility] 2019-11-22 17:18:13 2019-11-22 19:20:00 Emergency Bhavin Arzate [facility] 1.2.840.114 350.1.13.10 4.2.7.2.686 [id number] [facility] 2019-11-22 00:00:00 2019-11-22 00:00:00 Orders Only Doctor Unassigned, [place] [facility] 1.2.840.114 350.1.13.10 4.2.7.2.686 [id number] [facility] 2019-10-18 18:58:11 2019-10-18 21:15:00 Emergency X [place] IIIDAVID [facility] ERT [id number] [facility] Results Test Description Test Time Test Comments Results Result Co mments Source [facility] CHEST PULMONARY [id number] 07:08:06ORDERING PHYSICIAN: ?LYNN ?TIERRA HISTORY: Pulmonary embolism [...] acuteabnormalities. No suspicious focal osseous lesions are seen.[facility] CenterD-Wybvl3710-48-11 06:03:15* Test Item Value Reference Range Interpretation Comments D-DIMER (test code = 8564863558) 1.13 See_Comment H [Automated message] The system [...] a diagnosis. Lab Interpretation (test code = 78687-0) Abnormal [facility] CenterTroponin [id number] 05:33:32* Test Item Value Reference Range Interpretation Comme nts TROPONIN I (test code = 8170277755) <=0.034 GERARDO (test code = GERARDO) Reference [...] of biotin. Lab Interpretation (test code = 21676-4) Normal [facility]. Metabolic Panel (20042)2024-07-07 05:21:56* Test Item Value Reference Range Interpretation Comme nts NA (test code = 2609093210) 137 mmol/L 135-145 K (test code = 2803948658) 3.8 mmol/L 3.5-5.0 CL (test code = 0201396842) 102 mmol/L 98-108 CO2 TOTAL (test code = 1387173793) 29 mmol/L 23-31 AGAP (test code = 2624302648) 6 2-16 BUN (test code = 2980050421) 19 mg/dL 7-23 GLUCOSE (test code = 6110970048) 108 mg/dL 70-110 CREATININE (test code = 2160-0) 0.77 mg/dL 0.50-1.04 TOTAL BILI (test code = 1714391361) 0.4 mg/dL 0.1-1.1 CALCIUM (test code = 9291445919) 9.2 mg/dL 8.6-10.6 T PROTEIN (test code = 9443071395) 7.4 g/dL 6.3-8.2 ALBUMIN (test code = 4000365837) 4.2 g/dL 3.5-5.0 ALK PHOS (test code = 2395444108) 90 U/L 34-122 ALTv (test code = 1742-6) 16 U/L 5-35 AST(SGOT) (test code = 9846079931) 21 U/L 13-40 eGFR (test code = 45181-1) 95.9 mL/min/1.73m2 CKD-EPI eGFR (20 21). Assuming creatinine has been stable day-to-day for at least three months, the eGFR indicates Category G1 (>= 90 mL/min/1.73 m2) [facility] CenterLipase2024-09-01 05:21:56* Test Item Value Reference Range Interpretation Comme nts LIPASE (test code = 3690027377) 86 U/L 0-220 Lab Interpretation (test cod e = 70727-9) Normal [facility] CenterCbc with Iwvf4062-47-17 05:18:15* Test Item Value Reference Range Interpretation [...] 34.8 g/dL 31.6-35.1 RDW-SD (test code = 59778-2) 41.2 fL 39.0-49.9 RDW-CV (test code = 788-0) 12.3 % 12.0-15.5 PLT (test code = 777-3) 343 166-358 MPV (test code = 42491-2) 9.4 fL 9.5-12.9 L NRBC/100 WBC (test code = 2332044564) 0.0 0.0-10.0 NRBC x10^3 (test code = 0884833446) See_Comment [Automated messa ge] The system which generated this result transmitted reference range: 10*3/?L. The reference range was not used to interpret this result as normal/abnormal. GRAN MAT (NEUT) % (test code = 770-8) 53.4 % IMM GRAN % (test code = 7898592035) 0.40 % LYMPH % (test code = 736-9) 32.7 % MONO % (test code = 5905-5) 8.2 % EOS % (test code = 713-8) 4.7 % BASO % (test code = 706-2) 0.6 % GRAN MAT x10^3(ANC) (test code = 3451872535) 4.50 10*3/uL 1.88-7.09 IMM GRAN x10^3 (test code = 1566557203) 0.03 10*3/uL 0.00-0.06 LYMPH x10^3 (test code = 731-0) 2.76 10*3/uL 1.32-3.29 MONO x10^3 (test code = 742-7) 0.69 10*3/uL 0.33-0.92 EOS x10^3 (test code = 711-2) 0.40 10*3/uL 0.03-0.39 H BASO x10^3 (test code = 704-7) 0.05 10*3/uL 0.01-0.07 Lab Interpretation (test code = 00250-8) [facility]normal [facility] (05972)2022-09-18 22:14:05* Test Item Value Reference Range Interpretation Comme nts NA (test code = 0972410482) 139 mmol/L 135-145 K (test code = 3065705934) 4.1 mmol/L 3.5-5.0 CL (test code = 4102507586) 105 mmol/L 98-108 CO2 TOTAL (test code = 7937520833) 29 mmol/L 23-31 AGAP (test code = 3703881624) 2-16 BUN (test code = 1072624664) 17 mg/dL 7-23 GLUCOSE (test code = 7933856104) 98 mg/dL 70-110 CREATININE (test code = 5796436550) 0.72 mg/dL 0.50-1.04 TOTAL BILI (test code = 0526202275) 0.3 mg/dL 0.1-1.1 CALCIUM (test code = 5404448869) 10.2 mg/dL 8.6-10.6 T PROTEIN (test code = 6504485171) 7.1 g/dL 6.3-8.2 ALBUMIN (test code = 1919760485) 4.3 g/dL 3.5-5.0 ALK PHOS (test code = 0402628961) 112 U/L 34-122 ALTv (test code = 1742-6) 17 U/L 5-35 AST(SGOT) (test code = 9054713629) 18 U/L 13-40 eGFR (test code = 2552258591) mL/min/1.73m2 GERARDO (test code = GERARDO) Association [...] or urine or abnormalities in imaging tests). [facility] Notes Date/Time Note Provider Source 2024-07-07 03:44:52 [...] distress, accompanied by family. Dimple Mendez RN [facility] 2024-07-06 23:30:00 Summary: EKG EKG done in triage [facility] 2024-07-06 23:26:07 Summary: Triage CC: patient [...] Appears in no distress Sammi Granados RN [facility]
[2024-07-09] MEDS ORDERED: ONDANSETRON 4 MG/2 ML VIAL ONE (19:17)
[2024-07-09] MEDS ORDERED: MORPHINE 4 MG/ML SYR ONE (19:18)
[2024-07-09] MEDS ORDERED: NA CHLORIDE 0.9% 1,000 ML ONE ×2 (19:18→22:23)
[2024-07-09 19:35] LABS: Absolute Eosinophils 0.2 K/uL (0-0.5); Absolute Lymphocytes (CBC) 1.8 K/uL (0.7-4.9); Absolute Monocytes 0.4 K/uL (0.1-1.3); Absolute Neutrophil 5.8 K/uL (1.8-8.0); Basophils % 0.5 % (0-1.3); Eosinophils % 2.2 % (0-4.4); Hemoglobin 12.2 g/dL (12.0-15.0); Lymphocytes % 22.2 % (15.3-44.8); MCH 30.8 pg (27.0-35.0); MCHC 32.9 g/dL (32.0-36.0); MCV 93.5 fL (80-100); MPV 7.5 fL (7.6-11.3); Monocytes % 5.1 % (3.3-12.3); Platelets 363 thou/uL (152-406); RBC Red Blood Cell Count 3.95 M/uL (3.86-4.86); Red Cell Distribution Width 12.7 % (12.1-15.2)
[2024-07-09 19:51] LABS: ALT/SGPT 20 U/L (13-56); AST/SGOT 13 U/L (15-37); Albumin 3.6 g/dL (3.4-5.0); Albumin/Globulin Ratio 0.9 (1.1-1.8); Alkaline Phosphatase 91 U/L (45-117); Anion Gap 7.6 mEq/L (5.0-15.0); BUN Blood Urea Nitrogen 16 mg/dL (7-18); Bicarbonate 27 mEq/L (21-32); Bilirubin Total 0.2 mg/dL (0.2-1.0); Glomerular Filtration Rate 84 ml/min (=/>90); Glucose Level 140 mg/dL (74-106); Lipase 25 U/L (13-75); Potassium 3.6 mEq/L (3.5-5.1); Protein, Total 7.6 g/dL (6.4-8.2); Sodium Level 138 mEq/L (136-145)
[2024-07-09 19:52] LABS: Troponin High Sensitivity < 3.0 pg/mL (<58.9)
[2024-07-09] MEDS ORDERED: PANTOPRAZOLE 40 MG INJ ONE ×2 (20:59→22:22)
[2024-07-09] MEDS ORDERED: MAGNES/ALUMIN/SIMET 30ML UCUP ONE (20:59)
[2024-07-09] MEDS ORDERED: LIDOCAINE VISCOUS 2% 10ML ORAL SOLN ONE (21:00)
[2024-07-09 21:27] LABS: Specific Gravity 1.016 (1.005-1.030); Urine Bacteria <20 /HPF (<20); Urine Bilirubin NEGATIVE (Negative); Urine Blood Negative (Negative); Urine Clarity Extremely Turbid (Clear); Urine Color Light-Yellow (Yellow); Urine Crystals Unidentified Moderate /HPF (None Seen); Urine Culture Reflex Order REFLEXED; Urine Glucose NEGATIVE (Negative); Urine Ketones NEGATIVE (Negative); Urine Microscopic Reflex YN ORDER UMIC; Urine Mucus Slight /HPF (None Seen); Urine Nitrite NEGATIVE (Negative); Urine Protein NEGATIVE (Negative); Urine RBC <5 /HPF (None Seen); Urine Urobilinogen Normal (Normal); Urine Yeast (Budding) Moderate /HPF (None Seen); Urine pH 7.5 (5.0-7.0)
--- NOTE | 2024-07-09 21:53 | RAD REPORT ---
EXAM DESCRIPTION: CTAbdomen Pelvis W Contrast - 07/09/2024 9:42 pm CLINICAL HISTORY: Abdominal pain. ABD PAIN COMPARISON: <Comparisons> TECHNIQUE: Biphasic CT imaging of the abdomen and pelvis was performed with 100 ml non-ionic IV cont rast. All CT scans are performed using dose optimization technique as appropriate and may include automated exposure control or mA/KV adjustment according to patient size. FINDINGS: Cholecystectomy clips.Subtle edema is seen along the distal stomach/proximal duodenum. Sma ll hiatal hernia. The liver, spleen, pancreas, adrenal glands and kidneys are within normal limits. No bowel obstruction, free air, free fluid or abscess. The appendix is normal. No evidence of signi ficant lymphadenopathy. No suspicious bony findings. IMPRESSION: Mild edema is seen along the distal stomach/ proximal duodenum which could be related to ulcer disease. Upper endoscopy would be recommended for further workup.
--- NOTE | 2024-07-09 22:07 | EDPHYS ---
Physician Documentation [facility] Name: Brandee Marroquin Age: 48 yrs Sex: Female : 1975 Arrival Date: 07/09/2024 Time: 18:51 Bed 7 Private MD: ANTONI Physician Alejandro Mills HPI: 07/09 19:57 This 48 yrs old Female presents to ER via Wheelchair with complaints of Abdominal Pain. rt 19:57 Patient presents to the ED with epigastric pain starting last night, worsened today. rt Pain is in the mid epigastrium, radiates to the back. Is sharp in nature. Reports nausea, vomiting. Denies other acute complaints at this time, symptoms are moderate in severity, no other aggravating or elevating factors.. 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 - Infectious Disease History:: Denies. - Social history:: Smoking status: Patient denies any tobacco usage or history of. ROS: 19:58 Constitutional: Negative for fever, chills, and weight loss, Cardiovascular: Negative rt for chest pain, palpitations, and edema, Respiratory: Negative for shortness of breath, cough, wheezing, and pleuritic chest pain, MS/Extremity: Negative for injury and deformity, Skin: Negative for injury, rash, and discoloration, Neuro: Negative for headache, weakness, numbness, tingling, and seizure, 19:58 Abdomen/GI: Positive for abdominal pain, nausea and vomiting, Exam: 19:58 Constitutional: This is a well developed, well nourished patient who is awake, alert, rt and in no acute distress. Head/Face: Normocephalic, atraumatic. Chest/axilla: Normal chest wall appearance and motion. Nontender with no deformity. No lesions are appreciated. Cardiovascular: Regular rate and rhythm with a normal S1 and S2. No gallops, murmurs, or rubs. Normal PMI, no JVD. No pulse deficits. Respiratory: Lungs have equal breath sounds bilaterally, clear to auscultation and percussion. No rales, rhonchi or wheezes noted. No increased work of breathing, no retractions or nasal flaring. Skin: Warm, dry with normal turgor. Normal color with no rashes, no lesions, and no evidence of cellulitis. MS/ Extremity: Pulses equal, no cyanosis. Neurovascular intact. Full, normal range of motion. Neuro: Awake and alert, GCS 15, oriented to person, place, time, and situation. Cranial nerves II-XII grossly intact. Motor strength 5/5 in all extremities. Sensory grossly intact. Cerebellar exam normal. Normal gait. 19:58 ECG was reviewed by the Attending Physician. 19:58 Abdomen/GI: Tenderness to the epigastrium with mild guarding, no rebound, no distention, Vital Signs: 19:13 BP 118 / 79; Pulse 87; Resp 16; Temp 97.7(O); Pulse Ox 100% ; Weight 83.9 kg; Height 5 me1 ft. 2 in. ; Pain 8/10; 19:45 BP 110 / 74; Pulse 84; Resp 16; Pulse Ox 99% on R/A; pc2 21:14 BP 113 / 72; Pulse 76; Resp 16; Pulse Ox 100% on R/A; pc2 23:30 BP 119 / 84; Pulse 73; Resp 16; Pulse Ox 100% on R/A; pc2 09/04 01:15 BP 106 / 69; Pulse 63; Resp 17; Pulse Ox 99% on R/A; pc2 /03 19:13 Body Mass Index 33.83 (83.90 kg, 157.48 cm) [facility] 07/09 19:13 Pain Scale: Adult [facility] [place] MDM: 07/09 19:09 Patient medically screened. rt 22:25 Data reviewed: vital signs, nurses notes, lab test result(s), EKG, radiologic studies, blas CT scan, plain films. Consideration of Admission/Observation Patient was admitted/placed on observation. Escalation of care including admission/observation considered. I considered the following discharge prescriptions or medication management in the emergency department Medications were administered in the Emergency Department. See MAR. Independent interpretation of the following test(s) in the Emergency Department EKG: See my EKG interpretation above. Test considered but Not performed: Ultrasound NO ABD USG. Historians other than the Patient: Spouse/Significant Other: WELL INFORMED. Care significantly affected by the following chronic conditions: Obesity, ANXIETY, DEPRESSION, KIDNEY STONES. Counseling: I had a detailed discussion with the patient and/or guardian regarding the historical points, exam findings, and any diagnostic results supporting the discharge/admit diagnosis, lab results, radiology results, the need for further work-up and treatment in the hospital. 07/09 19:15 Order name: CBC with Diff; Complete Time: 19:58 rt 07/09 19:15 Order name: CMP; Complete Time: 19:58 rt 07/09 19:15 Order name: Lipase; Complete Time: 19:58 rt 07/09 19:15 Order name: Urinalysis w/ reflexes; Complete Time: 22:02 rt 07/09 19:15 Order name: Troponin High Sensitivity; Complete Time: 19:58 rt 07/09 21:32 Order name: Urine Culture EDMS 07/10 01:17 Order name: Urinalysis w/ reflexes EDMS 07/10 01:18 Order name: CBC with Automated Diff EDMS 07/10 01:18 Order name: CBC with Automated Diff EDMS 07/10 01:18 Order name: Comprehensive Metabolic Panel EDMS 07/10 01:18 Order name: Comprehensive Metabolic Panel EDMS 07/09 19:15 Order name: CT Abd/Pelvis - IV Contrast Only; Complete Time: 22:02 rt 07/09 19:15 Order name: EKG; Complete Time: 19:16 rt 07/09 19:15 Order name: IV Saline Lock; Complete Time: 19:32 rt 07/09 19:15 Order name: Labs collected and sent; Complete Time: 19:32 rt 07/09 19:15 Order name: EKG - Nurse/Tech; Complete Time: 19:32 rt EC:58 Rate is 77 beats/min. Rhythm is regular, Normal Sinus Rhythm with No ectopy. QRS [place] rt is Normal. [place] interval is normal. QRS interval is normal. QT interval is normal. No Q waves. T waves are Normal. No ST changes noted. Interpreted by me. Administered Medications: 19:30 Drug: NS 0.9% IV 1000 ml IV at 1 bolus Per protocol; 1000 mL bolus Route: IV; Rate: 1 pc2 bolus; Site: right antecubital; 22:00 Follow up: Response: No adverse reaction; IV Status: Completed infusion; IV Intake: pc2 1000ml 19:30 Drug: Ondansetron IVP 4 mg IVP once; over 2 minutes Route: IVP; Site: right antecubital;pc2 20:00 Follow up: Response: No adverse reaction; Marked relief of symptoms pc2 19:30 Drug: morphine IVP or IV 4 mg IVP once over 4 mins Route: IVP; Infused Over: 4 mins; pc2 Site: right antecubital; 20:00 Follow up: Response: No adverse reaction; Marked relief of symptoms pc2 21:11 Drug: Pantoprazole IVP 80 mg IVP once Route: IVP; Site: right antecubital; pc2 21:40 Follow up: Response: No adverse reaction pc2 21:11 Drug: GI Cocktail without - (Maalox PO 30 ml, Lidocaine Mucous Membrane 2 % 15 pc2 ml) PO once Route: PO; 21:40 Follow up: Response: No adverse reaction pc2 22:45 Drug: Rocephin IV 1 grams IV at per protocol once; Given slow IV push per pharmacy pc2 instructions Route: IV; Rate: per protocol; Site: right antecubital; 23:00 Follow up: Response: No adverse reaction; IV Status: Completed infusion; IV Intake: [id number] 22:50 Drug: Pantoprazole IV 8 mg/hr IV at 25 ml/hr continuous; (Standard dilution is 80 mg in pc2 250 mL NS) Route: IV; Rate: 25 ml/hr; Site: right antecubital; 07/10 01:23 Follow up: IV Status: Infusion continued upon admission pc2 07/09 22:50 Drug: NS 0.9% IV 1000 ml IV at 125 ml/hr continuous Route: IV; Rate: 125 ml/hr; Site: pc2 right antecubital; 07/10 01:23 Follow up: Response: No adverse reaction; IV Status: Infusion continued upon admission pc2 Disposition Summary: 07/09/24 22:12 Hospitalization Ordered Notes: Hospitalization Status: Observation blas Provider: Roseanna Bolaños cha Location: Telemetry/MedSurg (observation)(07/09/24 22:12) blas Condition: Fair(07/09/24 22:12) blas Problem: new(07/09/24 22:12) blas Symptoms: have improved(07/09/24 22:12) blas Bed/Room Type: Standard blas Room Assignment: 217(07/10/24 01:19) cg Diagnosis - Epigastric abdominal tenderness(07/09/24 22:12) blas - Abdominal tenderness blas - Acute gastritis without bleeding blas - Peptic ulcer, site unspecified, unspecified as acute or chronic, without hemorrhage blas or perforation Forms: - Medication Reconciliation Form blas - SBAR form blas - Leadership Thank You Letter blas Signatures: Dispatcher [employer] Alejandro Cisse MD MD cha Garcia, Cindy, RN RN cg Joe Pandey MD MD rt Sharon Farnsworth RN RN me1 Vikki Morales, RN RN pc2 Corrections: (The following items were deleted from the chart) 07/09 22:08 22:07 Home blas blas 22:08 22:07 new blas blas 22:08 22:07 have improved blas blas 22:08 22:07 Stable blas blas 22:08 22:07 Epigastric abdominal tenderness blas blas 22:08 22:07 Epigastric pain blas blas 22:08 22:07 Gastritis, unspecified blas blas 22:08 22:07 Gastro-esophageal reflux disease with esophagitis blas blas 07/10 01:19 07/09 22:12 blas cg
--- NOTE | 2024-07-09 22:07 | ER ---
Nurse's Notes [facility] Name: Brandee Marroquin Age: 48 yrs Sex: Female : 1975 Arrival Date: 07/09/2024 Time: 18:51 Bed 7 Private MD: Diagnosis: Epigastric abdominal tenderness;Abdominal tenderness;Acute gastritis without bleeding;Peptic ulcer, site unspecified, unspecified as acute or chronic, without hemorrhage or perforation Presentation: 07/09 19:13 Chief complaint: Patient states: epigastric pain that radiates to back "8/10, sharp" me1 w/associated n/v. Denies diarrhea. Coronavirus screen:. Ebola Screen: No symptoms or risks identified at this time. Initial Sepsis Screen: Does the patient meet any 2 criteria? No. Patient's initial sepsis screen is negative. Does the patient have a suspected source of infection? No. Patient's initial sepsis screen is negative. Risk Assessment: Do you want to hurt yourself or someone else? Patient reports no desire to harm self or others. Onset of symptoms was July 07, 2024. 19:13 Method Of Arrival: Wheelchair ks1 19:13 Acuity: ISHA 3 me1 Triage Assessment: 19:16 General: Appears in no apparent distress. uncomfortable, well groomed, Behavior is pc2 calm, cooperative, appropriate for age. ALTERATION SPECIALIST: 19:20 unknown pc2 Historical: - Allergies: 19:15 No Known Allergies; me1 - PMHx: 19:15 Anxiety; Depression; Kidney stones; me1 - PSHx: 19:15 section; Cholecystectomy; Lithotripsy; renal stent; me1 - Immunization history:: Adult Immunizations up to date. - Infectious Disease History:: Denies. - Social history:: Smoking status: Patient denies any tobacco usage or history of. Screenin:13 [facility] ED Fall Risk Assessment (Adult) History of falling in the last 3 months, pc2 including since admission No falls in past 3 months (0 pts) Confusion or Disorientation No (0 pts) Intoxicated or Sedated No (0 pts) Impaired Gait No (0 pts) Mobility Assist Device Used No (0 pt) Altered Elimination No (0 pt) Score/Fall Risk Level 0 - 2 = Low Risk Oriented to surroundings, Maintained a safe environment, Hourly rounding (assess needs \\T\\ fall precautionary measures) done. 19:19 Abuse screen: Denies threats or abuse. Denies injuries from another. Nutritional pc2 screening: No deficits noted. Tuberculosis screening: No symptoms or risk factors identified. Assessment: 19:14 Pain: Complains of pain in abdomen radiating to back Pain currently is 8 out of 10 on a pc2 pain scale. Quality of pain is described as sharp, squeezing. Neuro: Level of Consciousness is awake, alert, obeys commands, Oriented to person, place, time, situation, Appropriate for age. Cardiovascular: Patient's skin is warm and dry. Respiratory: Airway is patent Respiratory effort is even, unlabored, Respiratory pattern is regular, symmetrical. GI: Abdomen is round non-distended, Bowel sounds present X 4 quads. Abd is soft Reports upper abdominal pain. : No signs and/or symptoms were reported regarding the genitourinary system. EENT: No signs and/or symptoms were reported regarding the EENT system. Derm: No signs and/or symptoms reported regarding the dermatologic system. Musculoskeletal: No signs and/or symptoms reported regarding the musculoskeletal system. Vital Signs: 19:13 BP 118 / 79; Pulse 87; Resp 16; Temp 97.7(O); Pulse Ox 100% ; Weight 83.9 kg; Height 5 me1 ft. 2 in. ; Pain 8/10; 19:45 BP 110 / 74; Pulse 84; Resp 16; Pulse Ox 99% on R/A; pc2 21:14 BP 113 / 72; Pulse 76; Resp 16; Pulse Ox 100% on R/A; pc2 23:30 BP 119 / 84; Pulse 73; Resp 16; Pulse Ox 100% on R/A; pc2 09/04 01:15 BP 106 / 69; Pulse 63; Resp 17; Pulse Ox 99% on R/A; pc2 07/09 19:13 Body Mass Index 33.83 (83.90 kg, 157.48 cm) me1 07/09 19:13 Pain Scale: Adult me1 ED Course: 07/09 18:54 Patient arrived in ED. im 18:55 Joe Pandey MD is Attending Physician. rt 19:13 Patient has correct armband on for positive identification. Bed in low position. Call pc2 light in reach. Side rails up X2. Provided Education on: POC and time frame. Client placed on continuous cardiac and pulse oximetry monitoring. NIBP monitoring applied. 19:13 No provider procedures requiring assistance completed. pc2 19:14 Triage completed. me1 19:15 Arm band placed on Patient placed in an exam room. me1 19:25 Inserted saline lock: 20 gauge in right antecubital area, using aseptic technique. kmf Blood collected. Flushed with 10 mL NS. 19:31 Initial lab(s) drawn, by ks, sent to lab. kmf 19:31 EKG done, by ED staff, reviewed by Joe Pandey MD. kmf 19:32 CBC with Diff Sent. pc2 19:32 CMP Sent. pc2 19:32 Lipase Sent. pc2 20:06 Attending Physician role handed off by Joe Pandey MD blas 20:06 Alejandro Mills MD is Attending Physician. blas 20:48 Urinalysis w/ reflexes Sent. pc2 20:48 Urine collected: clean catch specimen. pc2 21:44 CT Abd/Pelvis - IV Contrast Only In Process Unspecified. EDMS 22:07 Alberto Valenzuela MD is Referral Physician. blas 22:07 Melvin Monae MD is Referral Physician. blas 22:09 Roseanna Bolaños MD is Hospitalizing Provider. blas 22:44 Vikki Morales, RN is Primary Nurse. pc2 07/10 03:06 Patient admitted, IV remains in place. pc2 Administered Medications: 07/09 19:30 Drug: NS 0.9% IV 1000 ml IV at 1 bolus Per protocol; 1000 mL bolus Route: IV; Rate: 1 pc2 bolus; Site: right antecubital; 22:00 Follow up: Response: No adverse reaction; IV Status: Completed infusion; IV Intake: pc2 1000ml 19:30 Drug: Ondansetron IVP 4 mg IVP once; over 2 minutes Route: IVP; Site: right antecubital;pc2 20:00 Follow up: Response: No adverse reaction; Marked relief of symptoms pc2 19:30 Drug: morphine IVP or IV 4 mg IVP once over 4 mins Route: IVP; Infused Over: 4 mins; pc2 Site: right antecubital; 20:00 Follow up: Response: No adverse reaction; Marked relief of symptoms pc2 21:11 Drug: Pantoprazole IVP 80 mg IVP once Route: IVP; Site: right antecubital; pc2 21:40 Follow up: Response: No adverse reaction pc2 21:11 Drug: GI Cocktail without - (Maalox PO 30 ml, Lidocaine Mucous Membrane 2 % 15 pc2 ml) PO once Route: PO; 21:40 Follow up: Response: No adverse reaction pc2 22:45 Drug: Rocephin IV 1 grams IV at per protocol once; Given slow IV push per pharmacy pc2 instructions Route: IV; Rate: per protocol; Site: right antecubital; 23:00 Follow up: Response: No adverse reaction; IV Status: Completed infusion; IV Intake: [id number] 22:50 Drug: Pantoprazole IV 8 mg/hr IV at 25 ml/hr continuous; (Standard dilution is 80 mg in pc2 250 mL NS) Route: IV; Rate: 25 ml/hr; Site: right antecubital; 07/10 01:23 Follow up: IV Status: Infusion continued upon admission pc2 07/09 22:50 Drug: NS 0.9% IV 1000 ml IV at 125 ml/hr continuous Route: IV; Rate: 125 ml/hr; Site: pc2 right antecubital; 07/10 01:23 Follow up: Response: No adverse reaction; IV Status: Infusion continued upon admission pc2 Medication: 07/09 19:14 VIS not applicable for this client. pc2 Intake: 22:00 IV: 1000ml; Total: 1000ml. pc2 23:00 IV: 10ml; Total: 1010ml. pc2 Outcome: 22:07 Discharge ordered by . [facility] 22:12 Decision to Hospitalize by Provider. [facility] 07/10 03:05 Admitted to Med/surg accompanied by tech, via wheelchair, room 217, with chart, pc2 Condition: stable Instructed on the need for admit, Demonstrated understanding of instructions, 03:06 Patient left the ED. pc2 Signatures: Dispatcher [employer] EDNC Alejandro Mills MD MD cha [place], Ryan, MD MD rt Mendoza, Itzel im Eddleman, Michelle, MARY RN Tiffanie Hooker Vikki Burleson, RN RN pc2 Corrections: (The following items were deleted from the chart) 07/09 19:32 19:30 NS 0.9% IV 1000 ml IV at 1 bolus in left antecubital pc2 pc2 19:33 19:14 Pain: Complains of pain in abdomen radiating to back pc2 pc2 19:33 19:14 GI: Abdomen is round non-distended, Bowel sounds present X 4 quads. Abd is soft pc2 Reports upper abdominal pain, pc2 19:34 19:13 Pulse ox on. NIBP on. pc2 pc2
[2024-07-09] MEDS ORDERED: NA CHLORIDE 0.9% 250 ML ONE (22:23)
[2024-07-09] MEDS ORDERED: CEFTRIAXONE 1000 MG/VIAL ONE (22:34)
--- NOTE | 2024-07-09 23:24 | P.HP ---
Certification for Inpatient Patient admitted to: Observation With expected LOS: <2 Midnights Practitioner: I am a practitioner with admitting privileges, knowledge of patient current condition, hospital course, and medical plan of care. Services: Services provided to patient in accordance with Admission requirements found in Title 42 Section 412.3 of the Code of Federal Regulations Patient History Date of Service: 07/10/24 Reason for admission: epigastric pain History of Present Illness: 48-year-old female with history of depression, kidney stones presents with complaints of abdominal pain. Onset of discomfort reported on [place] around noon. She did have vomiting with some blood tinge vomitus the night before. Denies taking nsaids, or blood thinners. CT scan in the ER was done surgery was consulted. Recommended to start on PPI drip. Antibiotics were given. Patient kept n.p.o. CT Abdpel IMPRESSION: Mild edema is seen along the distal stomach/ proximal duodenum which could be related to ulcer disease. Upper endoscopy would be recommended for further workup. Allergies No Known Allergies Allergy (Unverified 07/10/24 03:44) Home Medications: NK [No Home Meds] 07/10/24 - Family History Mother -: Diabetes, Stroke Father -: Cancer Review of Systems 10-point ROS is otherwise unremarkable General: Unremarkable Eyes: Unremarkable ENT: Unremarkable Respiratory: Unremarkable Cardiovascular: Unremarkable Gastrointestinal: Abdominal Pain, Unremarkable Physical Examination - Physical Exam General: Alert, In no apparent distress, Oriented x3 HEENT: Atraumatic, Normocephalic Neck: Supple Respiratory: Clear to auscultation bilaterally, Normal air movement Cardiovascular: No edema, Normal pulses Gastrointestinal: Normal bowel sounds, Non-distended, Tenderness Musculoskeletal: No clubbing, No swelling Integumentary: No rashes Neurological: Normal speech - Studies Laboratory Data (last 24 hrs) 07/09/24 07/09/24 19:25 19:25 WBC 8.20 Hgb 12.2 Hct 37.0 Plt Count 363 Sodium 138 Potassium 3.6 BUN 16 Creatinine 0.86 Glucose 140 H Total Bilirubin 0.2 AST 13 L ALT 20 Alkaline Phosphatase 91 Lipase 25 Assessment and Plan - Problems (Diagnosis) (1) Epigastric pain Current Visit: Yes Status: Acute (2) Abnormal urinalysis Current Visit: Yes Status: Acute - Plan 48-year-old female presents with abdominal pain Abdominal pain epigastric Peptic ulcer disease Nausea and vomiting History of anxiety Kidney stones abnormal UA Admit patient to [facility] N.p.o. IV fluids Protonix drip Surgery consultation prn Antiemetics Await home medication reconciliation Code full SCDs - Advance Directives Does patient have a Living Will: No Does patient have a Durable POA for Healthcare: No
[2024-07-10] MEDS: NA CHLORIDE 0.9% 1,000 ML IV SCH (02:00)
[2024-07-10 03:33] VITALS: O2SAT 99
[2024-07-10 03:46] VITALS: BMI 28.9
[2024-07-10] MEDS ORDERED: PANTOPRAZOLE INJ 80 MG in NA CHLORIDE 0.9% 250 ML IV SCH ×2 (05:00→15:00)
[2024-07-10] MEDS: PANTOPRAZOLE INJ 80 MG in NA CHLORIDE 0.9% 250 ML IV SCH ×2 (05:00→11:31)
[2024-07-10] MEDS: MORPHINE 2 MG/ML SYR IV PRN (09:11)
--- NOTE | 2024-07-10 11:12 | P.PN ---
Date of Service: 07/10/24 subjective Reports epigastric pain, 2 out of 10, relieved with analgesia Review of Systems 10-point ROS negative unless listed in HPI Physical Examination - Physical Exam Vital signs Reviewed General: Alert, In no apparent distress, Oriented x3 HEENT: Atraumatic, Normocephalic Neck: Supple Respiratory: Clear to auscultation bilaterally, Normal air movement Cardiovascular: No edema, Normal pulses Gastrointestinal: Normal bowel sounds, Non-distended, epigastric tenderness Musculoskeletal: No clubbing, No swelling Integumentary: No rashes Neurological: Normal speech Assessment and Plan - Problems (Diagnosis) Epigastric pain acute Abnormal urinalysis acute Peptic ulcer disease acute Nausea vomiting Surgery to consult, PPI, as needed analgesics, antiemetic Admit patient to [facility] N.p.o. IV fluids Protonix drip Surgery consultation plan for EGD today prn Antiemetics Await home medication reconciliation CT abdomen IMPRESSION: Mild edema is seen along the distal stomach/ proximal duodenum which could be related to ulcer disease. Upper endoscopy would be recommended for further workup. History of anxiety Kidney stones Resume appropriate home medication Code full SCDs - Advance Directives Does patient have a Living Will: No Does patient have a Durable POA for Healthcare: No Time with patient, Patient 35minutes <Narda Benton - Last Filed: 07/10/24 21:17> Chart has been reviewed. Events of the last 24 hours have been noted. Case discussed with RICHARD. I performed a substantial part of the MDM during this patient's care today. I personally made or approved the documented management plan and acknowledge its risk of complications. I agree with the findings and documentation provided in the RICHARD's notes Continue with PPI. Continue with antibiotic therapy. Continue with antiemetics. Arrange for discharge planning. Outpatient neurology follow-up as well <Riky Burton - Last Filed: 07/19/24 02:52>
--- NOTE | 2024-07-10 12:08 | EKG ---
Test Date: 2024-07-09 Test Time: 19:20:37 Environment Friendly Landscape Designer: LUIS MEASUREMENT RESULTS: Intervals: Rate: 77 LA: 178 QRSD: 90 QT: 380 QTc: 430 Ollie: P: 63 LA: 178 QRS: 56 T: 55 INTERPRETIVE STATEMENTS: Normal sinus rhythm Normal ECG Compared to ECG 07/07/2024 15:53:40 No significant changes Electronically Signed On 07-10-24 12:06:21 CDT by Wesley Sauer
--- NOTE | 2024-07-10 16:52 | P.DS ---
Admission Date: 07/10/24 Discharge Date: 07/11/24 Reason for Admission: epigastric pain Brief History of Present Illness: 48-year-old female with history of depression, kidney stones presents with complaints of abdominal pain. Onset of discomfort reported on [place] around noon. She did have vomiting with some blood tinge vomitus the night before. Denies taking nsaids, or blood thinners. CT scan in the ER was done surgery was consulted. Recommended to start on PPI drip. Antibiotics were given. Patient kept n.p.o. CT Abdpel IMPRESSION: Mild edema is seen along the distal stomach/ proximal duodenum which could be related to ulcer disease. Upper endoscopy would be recommended for further workup. - Physical Exam General: Alert, In no apparent distress, Oriented x3 HEENT: Atraumatic, Normocephalic Neck: Supple Respiratory: Clear to auscultation bilaterally, Normal air movement Cardiovascular: No edema, Normal pulses Gastrointestinal: Normal bowel sounds, Non-distended, Tenderness Musculoskeletal: No clubbing, No swelling Integumentary: No rashes Neurological: Normal speech Hospital Course: 48-year-old female with history of depression, kidney stones presents with complaints of abdominal pain. Onset of discomfort reported on [place] around noon. She did have vomiting with some blood tinge vomitus the night before. Denies taking nsaids, or blood thinners. CT scan in the ER was done surgery was consulted. Recommended to start on PPI drip. Antibiotics were given. Patient kept n.p.o. she is tolerating diet, can discharge home, follow-up with PCP, GI, surgery after discharge for EGD. Assessment Epigastric abdominal pain, started on PPI, pantoprazole twice daily Follow-up with surgery Dr. Munroe for EGD, or GI Avoid NSAIDs, ibuprofen, aspirin, that caused GI upset, Imaging CT Abdpel IMPRESSION: Mild edema is seen along the distal stomach/ proximal duodenum which could be related to ulcer disease. Upper endoscopy would be recommended for further workup. Continue home medicines as previously prescribed GOAL: Clear understanding of disease process INSTRUCTIONS: Physician Discharge Instructions: -Follow-up with surgery or GI after discharge -Follow-up with PCP in 1 to 2 weeks -Please call Dr. Burton at [phone] if any questions regarding hospital stay -Please call nursing station at [phone] if any nursing or medication questions -Return to the emergency room if symptoms worsen Diet: ADA, low sodium Activity: Fall precautions <Narda Benton - Last Filed: 07/12/24 13:41> Admission Date: 07/09/24 Discharge Date: 07/11/24 Hospital Course: Chart has been reviewed. Events of the last 24 hours have been noted. Case discussed with RICHARD. I performed a substantial part of the MDM during this patient's care today. I personally made or approved the documented management plan and acknowledge its risk of complications. I agree with the findings and documentation provided in the RICHARD's notes Continue with PPI. Outpatient follow-up with GI or general surgery. Patient will need EGD. <Riky Burton - Last Filed: 07/19/24 02:53> Disposition: ROUTINE DISCHARGE Discharge Condition: GOOD Vital Signs/Physical Exam: Temp Pulse Resp BP Pulse Ox 97.5 F 63 16 103/61 98 07/10/24 12:00 07/10/24 12:00 07/10/24 12:00 07/10/24 12:00 07/10/24 12:00 Laboratory Data at Discharge: WBC 8.20 thou/uL (4.3-10.9) 07/09/24 19:25 Hgb 12.2 g/dL (12.0-15.0) 07/09/24 19:25 Hct 37.0 % (36.0-45.0) 07/09/24 19:25 Plt Count 363 thou/uL (152-406) 07/09/24 19:25 Sodium 138 mEq/L (136-145) 07/09/24 19:25 Potassium 3.6 mEq/L (3.5-5.1) 07/09/24 19:25 BUN 16 mg/dL (7-18) 07/09/24 19:25 Creatinine 0.86 mg/dL (0.55-1.02) 07/09/24 19:25 Glucose 140 mg/dL (74-106) H 07/09/24 19:25 Total Bilirubin 0.2 mg/dL (0.2-1.0) 07/09/24 19:25 AST 13 U/L (15-37) L 07/09/24 19:25 ALT 20 U/L (13-56) 07/09/24 19:25 Alkaline Phosphatase 91 U/L (45-117) 07/09/24 19:25 Lipase 25 U/L (13-75) 07/09/24 19:25 <Narda Benton - Last Filed: 07/12/24 13:41> Vital Signs/Physical Exam: Temp Pulse Resp BP Pulse Ox 97.6 F 68 16 109/74 99 07/11/24 16:00 07/11/24 16:00 07/11/24 16:00 07/11/24 16:00 07/11/24 16:00 General: Alert, In no apparent distress, Oriented x3 Laboratory Data at Discharge: WBC 5.50 thou/uL (4.3-10.9) 07/11/24 05:23 Hgb 10.2 g/dL (12.0-15.0) L 07/11/24 05:23 Hct 30.4 % (36.0-45.0) L 07/11/24 05:23 Plt Count 256 thou/uL (152-406) 07/11/24 05:23 Sodium 142 mEq/L (136-145) 07/11/24 05:23 Potassium 4.0 mEq/L (3.5-5.1) 07/11/24 05:23 BUN 10 mg/dL (7-18) 07/11/24 05:23 Creatinine 0.71 mg/dL (0.55-1.02) 07/11/24 05:23 Glucose 104 mg/dL (74-106) 07/11/24 05:23 Total Bilirubin 0.3 mg/dL (0.2-1.0) 07/11/24 05:23 AST < 10 U/L (15-37) L 07/11/24 05:23 ALT 16 U/L (13-56) 07/11/24 05:23 Alkaline Phosphatase 67 U/L (45-117) 07/11/24 05:23 Lipase 25 U/L (13-75) 07/09/24 19:25 <Riky Burton - Last Filed: 07/19/24 02:53> Diet: Regular Activity: Fall precautions Time spent managing pt's care (in minutes): 55 <Narda Benton - Last Filed: 07/12/24 13:41> <JosephineAmberangeli Mayra - Last Filed: 07/19/24 02:53> Home Medications: Pantoprazole [Protonix Tab*] 40 mg PO BID 30 Days #60 tab 07/10/24 Amoxicillin 500 mg PO Q12H #28 cap 07/11/24 metroNIDAZOLE [Flagyl*] 500 mg PO Q12H #28 tab 07/11/24 New Medications: Amoxicillin 500 mg PO Q12H #28 cap metroNIDAZOLE [Flagyl*] 500 mg PO Q12H #28 tab Pantoprazole [Protonix Tab*] 40 mg PO BID 30 Days #60 tab Physician Discharge Instructions: 48-year-old female with history of depression, kidney stones presents with complaints of abdominal pain. Onset of discomfort reported on [place] around noon. She did have vomiting with some blood tinge vomitus the night before. Denies taking nsaids, or blood thinners. CT scan in the ER was done surgery was consulted. Recommended to start on PPI drip. Antibiotics were given. Patient kept n.p.o. she is tolerating diet, can discharge home, follow-up with PCP, GI, surgery after discharge for EGD. Assessment Epigastric abdominal pain, started on PPI, pantoprazole twice daily Follow-up with surgery Dr. Munroe for EGD, or GI Avoid NSAIDs, ibuprofen, aspirin, that caused GI upset, Discharge medications Flagyl, PPI, called into your prescription by Dr. Burton Imaging CT Abdpel IMPRESSION: Mild edema is seen along the distal stomach/ proximal duodenum which could be related to ulcer disease. Upper endoscopy would be recommended for further workup. Continue home medicines as previously prescribed GOAL: Clear understanding of disease process INSTRUCTIONS: Physician Discharge Instructions: -Follow-up with surgery or GI after discharge for EGD -Follow-up with PCP in 1 to 2 weeks -Please call Dr. Burton at [phone] if any questions regarding hospital stay -Please call nursing station at [phone] if any nursing or medication questions -Return to the emergency room if symptoms worsen Diet: ADA, low sodium Activity: Fall precautions Followup: Michael Monahan MD [ACTIVE - CAN ADMIT] - NONE,NONE [Primary Care Provider] -
[2024-07-11 05:32] LABS: Absolute Eosinophils 0.3 K/uL (0-0.5); Absolute Lymphocytes (CBC) 1.9 K/uL (0.7-4.9); Absolute Monocytes 0.5 K/uL (0.1-1.3); Absolute Neutrophil 2.7 K/uL (1.8-8.0); Basophils % 0.5 % (0-1.3); Eosinophils % 5.9 % (0-4.4); Hematocrit 30.4 % (36.0-45.0); Hemoglobin 10.2 g/dL (12.0-15.0); Lymphocytes % 35.3 % (15.3-44.8); MCH 31.7 pg (27.0-35.0); MCHC 33.7 g/dL (32.0-36.0); MPV 7.3 fL (7.6-11.3); Monocytes % 8.3 % (3.3-12.3); Platelets 256 thou/uL (152-406); RBC Red Blood Cell Count 3.23 M/uL (3.86-4.86); Red Cell Distribution Width 12.8 % (12.1-15.2)
[2024-07-11] MEDS: ONDANSETRON 4 MG/2 ML VIAL IV PRN (05:46)
[2024-07-11 05:50] LABS: ALT/SGPT 16 U/L (13-56); Albumin 2.7 g/dL (3.4-5.0); Albumin/Globulin Ratio 0.8 (1.1-1.8); Alkaline Phosphatase 67 U/L (45-117); BUN Blood Urea Nitrogen 10 mg/dL (7-18); Bicarbonate 25 mEq/L (21-32); Bilirubin Total 0.3 mg/dL (0.2-1.0); Globulin 3.2 g/dL (2.3-3.5); Glomerular Filtration Rate 105 ml/min (=/>90); Glucose Level 104 mg/dL (74-106); Protein, Total 5.9 g/dL (6.4-8.2); Sodium Level 142 mEq/L (136-145)
[2024-07-11 05:52] LABS: AST/SGOT < 10 U/L (15-37)
[2024-07-11] MEDS: ACETAMINOPHEN 325 MG TABLET PO ONE (15:00)
[2024-07-11 17:14] VITALS: BP 109/74; TEMP 97.6
== END 2024-07-11 17:28 | disposition home or self-care (01) | DRG 379 ==
LOC: ER 18:51 → 2ND 07-10 01:10
PROVIDERS: ADMIT Internal Medicine; ATTEND Hospitalist
DX: K26.0 Acute duodenal ulcer with hemorrhage (principal); F41.9 Anxiety disorder, unspecified; F32.A Depression, unspecified; E66.9 Obesity, unspecified; Z68.28 Body mass index [BMI] 28.0-28.9, adult; Z90.49 Acquired absence of other specified parts of digestive tract; Z79.899 Other long term (current) drug therapy
CPT/HCPCS: 36415; 74177; 80053; 81001; 83690; 84484; 85025; 87086; 87088; 93005; 96361; 96365; 96366; 96375; 99285; J0696; J2270; J2405; J2470; J7030; J7050; Q9967